=== PATIENT | female | born 1950 | race Caucasian/White ===

== ENCOUNTER 2024-01-27 13:44 | Emergency (ER) | payer MEDICARE, SELFPAY ==
[2024-01-27 13:45] VITALS: BP 147/71; PULSE 60; RESP 18; TEMP 37; O2SAT 100; BMI 25.0
[2024-01-27] MEDS: ONDANSETRON 4MG/2ML VIAL 4 MG IV ×2 (14:13→18:31)
[2024-01-27] MEDS: LACTATED RINGERS 1000ML 1,000 ML 999 ML IV (14:13)
[2024-01-27 14:23] LABS: Chloride 103 mmol/L (98-107); Sodium 137 mmol/L (136-145)
[2024-01-27 14:24] LABS: Potassium 3.6 mmoL/L (3.5-5.1)
--- NOTE | 2024-01-27 14:24 | HMH.EDGENADL ---
Discharge Plan Disposition Patient Disposition: Home, Self-Care Prescriptions Prescriptions: New metronidazole 500 mg tablet 500 mg PO Q8H 10 Days Qty: 30 0RF ondansetron 4 mg tablet,disintegrating 4 mg PO Q6H PRN (Reason: nausea and vomiting) Qty: 10 0RF levofloxacin 750 mg tablet 750 mg PO DAILY 10 Days Qty: 10 0RF Referrals Follow up/Referrals: Celina Richmond APRN [Primary Care Provider] - See instructions Activity Restrictions/Add. Instructions Additional Instructions/Restrictions: Today you are diagnosed with diverticulitis and urinary tract infection 3 times daily for 10 days, levofloxacin once daily for 10 days. Only take Zofran every 6 hours as needed for nausea and vomiting. Call your family doctor to establish care for this visit to the emergency department and schedule follow-up within 48 hours to ensure improvement. If you have any worsening of your condition or any other concerning signs or symptoms, return to the emergency department or your primary care doctor for further evaluation. Clinical Impressions Clinical Impression: Nausea vomiting and diarrhea, General weakness, Acute UTI, Elevated lipase, Diverticulitis Instructions Patient Instructions: DI for Diarrhea and Traveler's Diarrhea -- Adult, DI for Diarrhea and Traveler's Diarrhea -- Child, DI for Nausea -- Adult, DI for Nausea -- Child Discharge ED Provider: Renetta Aguirre General Adult HPI <Renetta Aguirre DO - Last Filed: 01/27/24 16:23> General Chief complaint: Nausea/Vomiting/Diarrhea Stated complaint: low heart rate, sleeping, vomitting Time Seen by Provider: 01/27/24 13:54 Mode of Arrival: Wheelchair Source of Information: Patient Limitations: No Limitations Description of Symptoms (Recalled from ER Triage Doc. by RN): pt presents to ED c/o n/v/d x 3 days. per report daughter in law states pt is weak. daughter in law states pt has a hx of dementia. pt A&O x 4 at this time. per report pt's granddaughter has recently been sick with vomiting. History of Present Illness HPI narrative: This patient is a 74-year-old female presenting to the emergency department for evaluation with concern for nausea, vomiting, and diarrhea for the last 3 days. Family member at home is also sick. According to family and the patient, the patient has had continued nausea and poor oral intake despite the vomiting resolving, and she is still having loose watery stools. No melena or hematochezia. Patient feels very weak and tired overall. No other concerns noted at this time such as abdominal pain pain, headache, visual disturbance, neurologic deficits, or other issues. Related Data Previous Rx's Medication Instructions Recorded levofloxacin 750 mg tablet 750 mg PO DAILY 10 days #10 tabs 01/27/24 metronidazole 500 mg tablet 500 mg PO Q8H 10 days #30 tabs 01/27/24 ondansetron 4 mg disintegrating 4 mg PO Q6H PRN nausea and 01/27/24 tablet vomiting #10 tabs Allergies Allergy/AdvReac Type Severity Reaction Status Date / Time Penicillins Allergy Verified 01/27/24 13:56 Sulfa (Sulfonamide Allergy Verified 01/27/24 13:56 Antibiotics) [facility] <Renetta Aguirre DO - Last Filed: 01/27/24 16:23> [facility] Disclaimer: The information contained in this section may have been updated after the patient was seen, as this information can be updated by other users. Social History (Updated 01/27/24 @ 16:21 by Renetta Aguirre DO) Smoking Status: Never smoker alcohol intake: never current occupational status: retired Travel in the last 8 weeks: None <Renetta Aguirre DO - Last Filed: 01/27/24 16:23> ROS Obtained: Yes All systems reviewed & no additional complaints except as documented Physical Exam <Renetta Aguirre DO - Last Filed: 01/27/24 16:23> General General appearance: alert and in no apparent distress Comment: Tired appearing Head Head exam: atraumatic and normocephalic Eye Eye exam: Present normal appearance, PERRL and EOMI ENT ENT exam: Present normal exam, normal oropharynx, mucous membranes moist and normal external ear exam Neck Neck exam: Present normal inspection, full ROM and trachea midline; Absent tenderness Chest Chest inspection: Present normal inspection and symmetric chest wall rise; Absent tenderness Respiratory Respiratory exam: Present normal lung sounds bilaterally; Absent respiratory distress, wheezes, stridor or accessory muscle use Cardiovascular Cardiovascular exam: Present regular rate and normal rhythm Abdominal Exam Abdominal exam: Present soft; Absent distention, tenderness or guarding Extremities Exam Extremities exam: Present normal inspection, full ROM and normal capillary refill; Absent tenderness or edema Back Exam Back exam: Present normal inspection and full ROM; Absent tenderness Neurological Exam Neurological exam: Present alert, oriented X3 and CN II-XII intact; Absent motor sensory deficit Psychiatric Psychiatric exam: Present normal affect and normal mood Skin Skin exam: Present warm and dry Medical Decision Making <Renetta Aguirre, DO - Last Filed: 01/27/24 16:23> Medical Records Medical records reviewed: Yes I reviewed the patient's medical records. [place] Inquiry Pt receiving controlled substance: No Vital Signs: 01/27/24 13:45 01/27/24 14:30 01/27/24 16:44 Temperature 98.6 F Temperature Source Oral Pulse Rate 51 L 62 Pulse Rate [Right Radial] 60 Respiratory Rate 18 Blood Pressure 125/62 120/62 Blood Pressure [Right Arm] 147/71 H Blood Pressure Mean [Right Arm] 96 Blood Pressure Source [Right Arm] Automatic Cuff Blood Pressure Position [Right Arm] Sitting 02 Sat by Pulse Oximetry 100 98 94 L Oxygen Delivery Method Room Air Room Air Room Air Lab Data Lab results reviewed: Yes I reviewed the patient's lab results. Lab Results 01/27/24 14:00: WBC 6.6, RBC 4.43, Hgb 14.0, Hct 41.7, MCV 94.1, MCH 31.5 H, MCHC 33.5, RDW 13.8, Plt Count 201, MPV 8.0, Neut % (Auto) 60.9, Lymph % (Auto) 29.9, [place] % (Auto) 7.8, Eos % (Auto) 0.9, Baso % (Auto) 0.4, Neut # (Auto) 4.0, Lymph # (Auto) 2.0, [place] # (Auto) 0.5, Eos # (Auto) 0.1, Baso # (Auto) 0.0, Sodium 137, Potassium 3.6, Chloride 103, Carbon Dioxide 27, Anion Gap 10.6, BUN 19 H, Creatinine 1.10 H, Estimated Creat Clear 49, Estimated GFR 49 L, Est GFR ( Amer) 59, Glucose 94, Calcium 8.9, Magnesium 1.9, Total Bilirubin 0.6, AST 32, ALT 21, Alkaline Phosphatase 49, Total Protein 6.6, Albumin 3.9, Globulin 2.7, Albumin/Globulin Ratio 1.4, Lipase 877 H 01/27/24 14:15: Urine Color Yellow, Urine Appearance Sl cloudy, Urine pH 6.0, Ur Specific [place] 1.015, Urine Protein Negative, Urine Glucose (UA) Negative, Urine Ketones Negative, Urine Blood 3+, Urine Nitrate Negative, Urine Bilirubin Negative, Urine Urobilinogen 0.2, Ur Leukocyte Esterase 2+ A, Urine RBC 5-10, Urine WBC 10-20, Ur Squamous Epith Cells 3-5, Urine Bacteria Trace 01/27/24 14:00 01/27/24 14:00 Orders (Tests/Meds): ED MEDICATIONS Discontinued Medications Generic Name Dose Route Start Last Admin Trade Name Freq PRN Reason Stop Dose Admin Lactated Ringer's 1,000 mls @ 999 mls/hr 01/27/24 13:58 01/27/24 14:13 Lactated Ringer's 1000 Ml Bag IV 01/27/24 14:58 999 mls/hr .Q1H1M ONE Administration Ceftriaxone Sodium 1 gm/ 50 mls @ 100 mls/hr 01/27/24 15:55 01/27/24 16:06 Sodium Chloride IV 01/27/24 16:24 100 mls/hr ONCE ONE Administration Iopamidol 75 ml 01/27/24 16:08 01/27/24 16:09 Iopamidol-370 (76%);100ml Bottle IV 01/27/24 16:09 75 ml ONCE ONE Administration Ondansetron HCl 4 mg 01/27/24 13:58 01/27/24 14:13 Ondansetron 4mg/2ml Vial IV 01/27/24 13:59 4 mg ONCE ONE Administration Sodium Chloride 10 ml 01/27/24 16:08 01/27/24 16:09 Sodium Chloride 0.9% 10ml Syr (Rad Only) IV 01/27/24 16:09 10 ml ONCE ONE Administration ORDERS Category Date Time Status CT abdomen pelvis w con Stat Cat Scan 01/27/24 14:42 Completed US RUQ [US abdomen limited] Stat Exams 01/27/24 14:42 Completed Complete Blood Count Auto Diff Stat Lab 01/27/24 14:00 Completed Comprehensive Metabolic Panel Stat Lab 01/27/24 14:00 Completed Diarrhea 23 Panel, PCR Stat Lab 01/27/24 13:57 Ordered Lipase Stat Lab 01/27/24 14:00 Completed Magnesium Stat Lab 01/27/24 14:00 Completed Urinalysis and Microscopic Stat Lab 01/27/24 14:15 Completed Urine Culture Stat Micro 01/27/24 14:15 Received ECG Data Tracing #1: I reviewed this ECG and interpreted as documented below: Sinus bradycardia with a ventricular rate of [address] changes concerning for ischemia. Normal axis and intervals. ECG initial impression date: 01/27/24 ECG initial impression time: 14:39 Medical Decision Narrative: In summary, this patient is a 74-year-old female presenting to the Emergency Department for evaluation of nausea, vomiting, diarrhea, and general weakness. Differential diagnoses considered include but are not limited to viral gastroenteritis, bacterial gastroenteritis, dehydration, hypokalemia, hypomagnesemia, urinary tract infection. Ruling out the most morbid conditions drove assessment. On exam, the patient is tired appearing but is neurologically intact with benign abdominal exam. Workup included CBC, CMP, lipase, urinalysis, stool panel, and EKG. She is given a bolus of IV fluids as well as IV Zofran. Labs demonstrate an elevated lipase of greater than 800. She also has concern for urinary tract infection. Labs are otherwise reassuring with no elevation in bilirubin, normal liver enzymes, and no other acute concerns. On reassessment, the patient is feeling little bit better and is resting calmly with benign abdominal exam. Given elevated lipase of unknown etiology, decision was made to order CT abdomen pelvis with IV contrast as well as right upper quadrant ultrasound, as the patient does still have her gallbladder. Patient close on exam, provider, Dr. Zhao, pending imaging. <Sanford Zhao MD - Last Filed: 01/27/24 18:22> Vital Signs: 01/27/24 13:45 01/27/24 14:30 01/27/24 16:44 Temperature 98.6 F Temperature Source Oral Pulse Rate 51 L 62 Pulse Rate [Right Radial] 60 Respiratory Rate 18 Blood Pressure 125/62 120/62 Blood Pressure [Right Arm] 147/71 H Blood Pressure Mean [Right Arm] 96 Blood Pressure Source [Right Arm] Automatic Cuff Blood Pressure Position [Right Arm] Sitting 02 Sat by Pulse Oximetry 100 98 94 L Oxygen Delivery Method Room Air Room Air Room Air Lab Data Lab Results 01/27/24 14:00: WBC 6.6, RBC 4.43, Hgb 14.0, Hct 41.7, MCV 94.1, MCH 31.5 H, MCHC 33.5, RDW 13.8, Plt Count 201, MPV 8.0, Neut % (Auto) 60.9, Lymph % (Auto) 29.9, [place] % (Auto) 7.8, Eos % (Auto) 0.9, Baso % (Auto) 0.4, Neut # (Auto) 4.0, Lymph # (Auto) 2.0, [place] # (Auto) 0.5, Eos # (Auto) 0.1, Baso # (Auto) 0.0, Sodium 137, Potassium 3.6, Chloride 103, Carbon Dioxide 27, Anion Gap 10.6, BUN 19 H, Creatinine 1.10 H, Estimated Creat Clear 49, Estimated GFR 49 L, Est GFR ( Amer) 59, Glucose 94, Calcium 8.9, Magnesium 1.9, Total Bilirubin 0.6, AST 32, ALT 21, Alkaline Phosphatase 49, Total Protein 6.6, Albumin 3.9, Globulin 2.7, Albumin/Globulin Ratio 1.4, Lipase 877 H 01/27/24 14:15: Urine Color Yellow, Urine Appearance Sl cloudy, Urine pH 6.0, Ur Specific [place] 1.015, Urine Protein Negative, Urine Glucose (UA) Negative, Urine Ketones Negative, Urine Blood 3+, Urine Nitrate Negative, Urine Bilirubin Negative, Urine Urobilinogen 0.2, Ur Leukocyte Esterase 2+ A, Urine RBC 5-10, Urine WBC 10-20, Ur Squamous Epith Cells 3-5, Urine Bacteria Trace Orders (Tests/Meds): ED MEDICATIONS Discontinued Medications Generic Name Dose Route Start Last Admin Trade Name Darrel PRN Reason Stop Dose Admin Lactated Ringer's 1,000 mls @ 999 mls/hr 01/27/24 13:58 01/27/24 14:13 Lactated Ringer's 1000 Ml Bag IV 01/27/24 14:58 999 mls/hr .Q1H1M ONE Administration Ceftriaxone Sodium 1 gm/ 50 mls @ 100 mls/hr 01/27/24 15:55 01/27/24 16:06 Sodium Chloride IV 01/27/24 16:24 100 mls/hr ONCE ONE Administration Iopamidol 75 ml 01/27/24 16:08 01/27/24 16:09 Iopamidol-370 (76%);100ml Bottle IV 01/27/24 16:09 75 ml ONCE ONE Administration Ondansetron HCl 4 mg 01/27/24 13:58 01/27/24 14:13 Ondansetron 4mg/2ml Vial IV 01/27/24 13:59 4 mg ONCE ONE Administration Sodium Chloride 10 ml 01/27/24 16:08 01/27/24 16:09 Sodium Chloride 0.9% 10ml Syr (Rad Only) IV 01/27/24 16:09 10 ml ONCE ONE Administration ORDERS Category Date Time Status CT abdomen pelvis w con Stat Cat Scan 01/27/24 14:42 Completed US RUQ [US abdomen limited] Stat Exams 01/27/24 14:42 Completed Complete Blood Count Auto Diff Stat Lab 01/27/24 14:00 Completed Comprehensive Metabolic Panel Stat Lab 01/27/24 14:00 Completed Diarrhea 23 Panel, PCR Stat Lab 01/27/24 13:57 Ordered Lipase Stat Lab 01/27/24 14:00 Completed Magnesium Stat Lab 01/27/24 14:00 Completed Urinalysis and Microscopic Stat Lab 01/27/24 14:15 Completed Urine Culture Stat Micro 01/27/24 14:15 Received Medical Decision Narrative: In summary, this patient is a 74-year-old female presenting to the Emergency Department for evaluation of nausea, vomiting, diarrhea, and general weakness. Differential diagnoses considered include but are not limited to viral gastroenteritis, bacterial gastroenteritis, dehydration, hypokalemia, hypomagnesemia, urinary tract infection. Ruling out the most morbid conditions drove assessment. On exam, the patient is tired appearing but is neurologically intact with benign abdominal exam. Workup included CBC, CMP, lipase, urinalysis, stool panel, and EKG. She is given a bolus of IV fluids as well as IV Zofran. Labs demonstrate an elevated lipase of greater than 800. She also has concern for urinary tract infection. Labs are otherwise reassuring with no elevation in bilirubin, normal liver enzymes, and no other acute concerns. On reassessment, the patient is feeling little bit better and is resting calmly with benign abdominal exam. Given elevated lipase of unknown etiology, decision was made to order CT abdomen pelvis with IV contrast as well as right upper quadrant ultrasound, as the patient does still have her gallbladder. Patient close on exam, provider, Dr. Zhao, pending imaging. Pavel: I assumed primary responsibility for this patient after signout from previous physician. On my evaluation, patient in no acute distress. Intermittently nauseous, given IV Zofran. Given, given Flagyl and levofloxacin. Independent rotation of labs demonstrate UA. Nonactionable CBC or chemistry. CT of the abdomen pelvis without findings for pancreatitis, patient does have concern for diverticulitis, scant inflammatory fluid in the pelvis and cystitis. I feel this is employment program representative of patient's symptoms. Because patient at baseline without signs or symptoms of clinical decompensation, deemed appropriate for discharge. Results were relayed to patient who voiced understanding and were agreeable to outpatient management and follow up. I discussed my clinical impression with patient and answered all questions. At this time, the evidence for any other entities in the differential is insufficient to warrant any further testing or ED observation. This was explained as well. Advisory was given that persistent or worsening symptoms require further evaluation. I confirmed the understanding of this discussion. Critical Care <Renetta Aguirre, DO - Last Filed: 01/27/24 16:23> Critical Care Time Critical Care Time: No
[2024-01-27 14:26] LABS: Alanine Aminotransferase 21 U/L (12-78); Albumin Level 3.9 g/dl (3.5-5.0); Albumin/Globulin Ratio 1.4 (1.1-1.8); Alkaline Phosphatase 49 U/L (38-126); Anion Gap 10.6 mEq/L (5-15); Aspartate Amino Transferase 32 U/L (14-36); Bilirubin,Total 0.6 mg/dl (0.2-1.3); Blood Urea Nitrogen 19 mg/dl (7-17); Carbon Dioxide 27 mmol/L (22.0-30.0); Creatinine Clearance Estimated 49 mL/min (50-200); Estimated Glomerular Filt Rate 49 ml/min (>60); GFR (African American) 59 ML/MIN (>60); Globulin 2.7 g/dL (1.3-3.2); Magnesium 1.9 mg/dl (1.6-2.3); Total Protein,Serum 6.6 g/dl (6.3-8.2)
[2024-01-27 14:27] LABS: Calcium 8.9 mg/dl (8.4-10.2); Glucose 94 mg/dl (74-100)
[2024-01-27 14:30] VITALS: BP 125/62; PULSE 51; O2SAT 98
[2024-01-27 14:32] LABS: Basophils % 0.4 % (0.1-2.0); Eosinophils # 0.1 K/mm3 (0.0-0.4); Eosinophils % 0.9 % (0.1-12.0); Hematocrit 41.7 % (37.0-47.0); Lymphocytes % 29.9 % (10-50); Mean Corpuscular HGB Conc 33.5 g/dL (31.8-35.4); Mean Corpuscular Hemoglobin 31.5 pg (27.0-31.2); Mean Corpuscular Volume 94.1 fl (81-99); Monocytes # 0.5 K/mm3 (0.1-1.0); Monocytes % 7.8 % (1.7-9.3); Neutrophils % 60.9 % (37.0-80.0); Platelet Count 201 K/mm3 (142-424); Red Blood Count 4.43 M/mm3 (4.20-5.40); Red Cell Distribution Width 13.8 % (11.5-17.5); White Blood Count 6.6 K/mm3 (4.8-10.8)
[2024-01-27 14:33] LABS: Lipase 877 U/L (23-300)
--- NOTE | 2024-01-27 14:33 | PC.NURSE ---
lipase [address] Aguirre.
--- NOTE | 2024-01-27 14:39 | ECG_ITS ---
APPROVED REPORT Exam: Resting ECG HR:56 bpm ECG Measurements Heart Rate 56 AXES IA 157 P 58 QRSd 90 QRS 54 QT 429 T 44 QTc 422 Conclusion SINUS BRADYCARDIA BORDERLINE ECG Electronically signed by : RENÉ BOSWELL, 01/27/2024 16:25:27
--- NOTE | 2024-01-27 14:42 | US_ITS ---
FINAL REPORT CLINICAL HISTORY: new pancreatitis FINDINGS: RIGHT UPPER QUADRANT ULTRASOUND Sonographic images of the right upper quadrant were obtained. The pancreas is partially obscured.The liver has an unremarkable appearance. There is a questionable small stone in the gallbladder without well-defined shadowing. The common duct measures 6 mm, normal for age. Right renal cyst measures 1.9 cm. IMPRESSION: Right renal cysts. Questionable gallstone. Follow-up ultrasound may be helpful. Reviewed, Interpreted and Dictated by Puma Silverio III, MD Transcribed by Veronica Velazquez Authenticated and [facility]
--- NOTE | 2024-01-27 14:42 | CT_ITS ---
FINAL REPORT CLINICAL HISTORY: new pancreatitis, no history COMPARISON: None FINDINGS: CT OF THE ABDOMEN AND PELVIS WITH CONTRAST Axial CT images of the abdomen and pelvis were obtained after the administration of IV contrast. Coronal and sagittal reformatted images were also obtained and reviewed. This study was performed with techniques to keep radiation doses as low as reasonably achievable (ALARA). Individualized dose reduction techniques using automated exposure control or adjustment of mA and/or kV according to the patient's size were employed. Abdomen: The lung bases are clear. The heart is normal in size. The liver has an unremarkable appearance, without evidence of mass or biliary ductal dilatation. No gallstones are identified. The spleen is unremarkable. No adrenal mass is present. The pancreas has an unremarkable appearance. There is a 2.2 cm posterior right renal cyst present. No evidence of hydronephrosis or mass is otherwise seen in either kidney. The aorta is normal in caliber. Moderate vascular calcifications are present. There is no free fluid or adenopathy. No mass or abnormal fluid collection is seen. Pelvis: The appendix is not well-visualized. Multiple colonic diverticula are present. There is stranding adjacent to the distal sigmoid colon, worrisome for acute diverticulitis. A small amount of free fluid is in the pelvis, likely reactive. The uterus has been surgically resected. The urinary bladder is unremarkable. There is no evidence of mass or adenopathy. There is no evidence of bowel obstruction. IMPRESSION: Stranding adjacent to the distal sigmoid colon, worrisome for acute diverticulitis. Numerous colonic diverticula are present throughout the colon. Small amount of pelvic free fluid, likely reactive. No gallstones are identified. The pancreas appears unremarkable. Reviewed, Interpreted and Dictated by Puma Silverio III, MD Transcribed by Lora Echavarria Authenticated and [facility]
[2024-01-27 14:45] LABS: Microscopic, Urine URINE MICROSCOPIC (MICROSCOPIC)
[2024-01-27 14:46] LABS: Appearance,Urine SL CLOUDY (Clear); Bilirubin,Urine Negative (Negative); Blood, Urine 3+ (Negative); Color,Urine YELLOW (Yellow); Glucose,Urine (UA) Negative (Negative); Ketones,Urine Negative (Negative); Leukocyte Esterase,Urine 2+ (Negative); Nitrate,Urine Negative (Negative); Protein,Urine Negative (Negative); Specific Gravity, Urine 1.015 (1.005-1.030); Urobilinogen,Urine 0.2 EU/dl (0.2)
[2024-01-27 14:48] LABS: Bacteria,Urine Trace /lpf
[2024-01-27] MEDS: CEFTRIAXONE SODIUM 1 GM in 0.9 % SODIUM CHLORIDE 50 ML IV (16:06)
[2024-01-27] MEDS: IOPAMIDOL-370 (76%);100ML BOTTLE 75 ML IV (16:09)
[2024-01-27] MEDS: SODIUM CHLORIDE 0.9% 10ML SYR (RAD ONLY) 10 ML IV (16:09)
[2024-01-27 16:44] VITALS: BP 120/62; PULSE 62; O2SAT 94
--- NOTE | 2024-01-27 18:05 | PC.NURSE ---
NOTIFIED DR. MANN THAT PATIENT IS REQUESTING SOMETHING FOR NAUSEA, INFORMED HIM SHE HAD ZOFRAN AT 1415. PATIENT AND FAMILY IS ALSO REQUESTING UPDATE ON LAB RESULTS AND CT RESULTS. DR. MANN AT BEDSIDE TO UPDATE PATIENT.
--- NOTE | 2024-01-27 18:07 | PC.NURSE ---
Dr. Zhao at BS to update pt and family
[2024-01-27] MEDS: levoFLOXacin 750 MG TABLET PO (18:31)
[2024-01-27] MEDS: metroNIDAZOLE 500 MG TABLET PO (18:31)
[2024-01-27 18:38] VITALS: BP 132/84; PULSE 64; RESP 20; TEMP 37; O2SAT 99
== END 2024-01-27 18:38 | disposition home or self-care (01) ==
PROVIDERS: Emergency Provider Emergency Medicine; PCP Nurse Practitioner Family
DX: N39.0 Urinary tract infection, site not specified (principal); B96.89 Other specified bacterial agents as the cause of diseases classified elsewhere; R00.1 Bradycardia, unspecified; K57.32 Diverticulitis of large intestine without perforation or abscess without bleeding; R11.2 Nausea with vomiting, unspecified; R19.7 Diarrhea, unspecified; R53.1 Weakness
CPT/HCPCS: 74177; 76705; 80053; 81001; 83690; 83735; 85025; 87086; 93005; 96361; 96365; 96375; 96376; 99285; J0696; J2405; Q9967

== ENCOUNTER 2024-01-28 13:21 | Observation (INO) | payer MEDICARE, SELFPAY ==
[2024-01-28 13:23] VITALS: BP 146/81; PULSE 103; RESP 20; TEMP 37.5; O2SAT 97; BMI 27.1
--- NOTE | 2024-01-28 13:51 | ED_ITS ---
Discharge Plan Disposition Chief Complaint: Altered Mental Status Prescriptions Prescriptions: No Action metronidazole 500 mg tablet 500 mg PO Q8H 10 Days Qty: 30 0RF ondansetron 4 mg tablet,disintegrating 4 mg PO Q6H PRN (Reason: nausea and vomiting) Qty: 10 0RF levofloxacin 750 mg tablet 750 mg PO DAILY 10 Days Qty: 10 0RF Discharge ED Provider: [facility] General Chief complaint: Altered Mental Status Stated complaint: possible UTI Time Seen by Provider: 01/28/24 13:25 Mode of Arrival: Ambulatory Source of Information: Patient and Relative Limitations: No Limitations Description of Symptoms (Recalled from ER Triage Doc. by RN): pt was seen here yesterday and dx with a uti and diverticulitis given first dose levaquin and flagyl here in the ER then went home. per family pt mental state has declined and she is in a more delirium state. same ER md that saw her yesterday saw her today History of Present Illness HPI narrative: 74-year-old female history of dementia and UTI induced delirium, diagnosis of diverticulitis (uncomplicated) and UTI yesterday 01/26 by myself presenting with delirium. Family states that she has been agitated, screaming, cursing, uncooperative since going home yesterday, 01/26 into the evening. Becoming acutely aggressive. Has been tolerating very little p.o. intake. Family brought her in for further evaluation. Patient not oriented to place or time. States that she packed up the car telling them they are moving to [place]. Family states that she has been getting her Levaquin that was sent home with her and has not had difficulty tolerating that. Please note that above description of symptoms, in this electronic medical record under categorization of recalled from ER triage doctor by RN are reflective of an initial nursing assessment, however, is not reflective of my full history and physical exam that was personally taken and clarified. Consequentially, this preceding description of symptoms, which may include the patient's categorized chief complaint in the EMR, do not reflect my personal clinical impression, and the ultimate description of history of present illness and patient stated complaints should be deferred to this section of the note. Unless stated otherwise or congruent with this section of the note, additional signs, symptoms, or incongruence should be interpreted as inaccurate with my clinical impression. Related Data Previous Rx's Medication Instructions Recorded levofloxacin 750 mg tablet 750 mg PO DAILY 10 days #10 tabs 01/27/24 metronidazole 500 mg tablet 500 mg PO Q8H 10 days #30 tabs 01/27/24 ondansetron 4 mg disintegrating 4 mg PO Q6H PRN nausea and 01/27/24 tablet vomiting #10 tabs Allergies Allergy/AdvReac Type Severity Reaction Status Date / Time Penicillins Allergy Verified 01/27/24 13:56 Sulfa (Sulfonamide Allergy Verified 01/27/24 13:56 Antibiotics) [facility] Disclaimer: The information contained in this section may have been updated after the patient was seen, as this information can be updated by other users. Social History (Updated 01/27/24 @ 16:21 by Renetta Aguirre DO) Smoking Status: Never smoker alcohol intake: never current occupational status: retired Travel in the last 8 weeks: None ROS Obtained: Yes All systems reviewed & no additional complaints except as documented Physical Exam General General appearance: alert and in no apparent distress Head Head exam: atraumatic and normocephalic Eye Eye exam: Present normal appearance, PERRL and EOMI ENT ENT exam: Present mucous membranes moist Neck Neck exam: Present normal inspection, full ROM and trachea midline Respiratory Respiratory exam: Absent respiratory distress, wheezes, stridor, accessory muscle use or prolonged expiratory phase Cardiovascular Cardiovascular exam: Present normal rhythm Abdominal Exam Abdominal exam: Present soft and tenderness; Absent distention, guarding, rebound or rigidity Abdominal tenderness: Present suprapubic Extremities Exam Extremities exam: Absent edema Neurological Exam Neurological exam: Present alert, CN II-XII intact and normal gait; Absent oriented X3 or motor sensory deficit Skin Skin exam: Present warm and dry; Absent diaphoresis or erythema Medical Decision Making Medical Records Medical records reviewed: Yes I reviewed the patient's medical records. [place] Inquiry Pt receiving controlled substance: No [place] was queried for this patient: No Vital Signs: 01/28/24 13:23 01/28/24 14:00 Temperature 99.5 F Temperature Source Oral Pulse Rate 92 H Pulse Rate [Right Radial] 103 H Respiratory Rate 20 Blood Pressure 141/88 H Blood Pressure [Right Arm] 146/81 H Blood Pressure Mean [Right Arm] 102 02 Sat by Pulse Oximetry 97 90 L Oxygen Delivery Method Room Air Room Air Lab Data Lab Results 01/28/24 13:57: WBC 5.2, RBC 4.57, Hgb 14.1, Hct 43.5, MCV 95.2, MCH 30.8, MCHC 32.4, RDW 13.6, Plt Count 204, MPV 7.8, Neut % (Auto) 62.6, Lymph % (Auto) 27.0, [place] % (Auto) 9.0, Eos % (Auto) 0.5, Baso % (Auto) 0.9, Neut # (Auto) 3.3, Lymph # (Auto) 1.4, [place] # (Auto) 0.5, Eos # (Auto) 0.0, Baso # (Auto) 0.1, Sodium 138, Potassium 3.6, Chloride 105, Carbon Dioxide 25, Anion Gap 11.6, BUN 11 D, Creatinine 1.20 H, Estimated Creat Clear 47, Estimated GFR 44 L, Est GFR ( Amer) 53 L, Glucose 103 H, Lactate 0.7, Calcium 8.9, Total Bilirubin 0.4, AST 31, ALT 21, Alkaline Phosphatase 47, Total Protein 6.9, Albumin 4.0, Globulin 2.9, Albumin/Globulin Ratio 1.4 01/28/24 13:57 01/28/24 13:57 Orders (Tests/Meds): ED MEDICATIONS Generic Name Dose Route Start Last Admin Trade Name Freq PRN Reason Stop Dose Admin Sodium Chloride 1,000 mls @ 999 mls/hr 01/28/24 13:52 01/28/24 13:57 Sod Chlor 0.9% 1000ml Bag IV 01/28/24 14:52 999 mls/hr .Q1H1M ONE Administration Discontinued Medications Generic Name Dose Route Start Last Admin Trade Name Freq PRN Reason Stop Dose Admin Ceftriaxone Sodium 1 gm/ 50 mls @ 100 mls/hr 01/28/24 13:52 01/28/24 13:57 Sodium Chloride IV 01/28/24 14:21 100 mls/hr ONCE ONE Administration ORDERS Category Date Time Status CBC w/Auto Diff [Complete Blood Count Auto Diff] Stat Lab 01/28/24 13:57 Completed CMP [Comprehensive Metabolic Panel] Stat Lab 01/28/24 13:57 Completed Lactic Acid Stat Lab 01/28/24 13:57 Completed Blood Culture Stat Micro 01/28/24 14:06 Received Medical Decision Narrative: 74-year-old female history of dementia and UTI induced delirium, diagnosis of diverticulitis (uncomplicated) and UTI yesterday 01/26 by myself presenting with delirium. Family states that she has been agitated, screaming, cursing, uncooperative since going home yesterday, 01/26 into the evening. Becoming acutely aggressive. Has been tolerating very little p.o. intake. Family brought her in for further evaluation. Patient not oriented to place or time. States that she packed up the car telling them they are moving to [place]. Family states that she has been getting her Levaquin that was sent home with her and has not had difficulty tolerating that. History was obtained via conversation with patient and family. On arrival, patient hemodynamically stable, alert, oriented to person and situation, not time or place appropriate, GCS 15, moving all extremities spontaneously, pupils equal and reactive to light. Full physical exam performed and significant for well-appearing woman in no acute distress. Abdomen is soft, but tender in suprapubic region. She states that she needs to urinate when pushed on suprapubic region. Denies overt or severe pain. Differential includes diverticulitis, UTI, infectious delirium, colitis, among others. Patient was given ceftriaxone 1 g, normal saline bolus for symptomatic management and correction of underlying abnormalities. Workup independently interpreted and significant for nonactionable hematologic workup, negative lactate. Mildly worsening ADE with creatinine 1.2. Independent rotation of imaging from yesterday demonstrated similar findings with cystitis and diverticulitis with no other complications. Given levofloxacin and Flagyl IV. Hospitalist was contacted and case was discussed at length given patient failing outpatient therapy, patient be admitted. Critical Care Critical Care Time Critical Care Time: No
[2024-01-28] MEDS: 0.9 % SODIUM CHLORIDE 1000ML 1,000 ML 999 ML IV (13:57)
[2024-01-28] MEDS: CEFTRIAXONE SODIUM 1 GM in 0.9 % SODIUM CHLORIDE 50 ML IV (13:57)
[2024-01-28 14:00] VITALS: BP 141/88; PULSE 92; O2SAT 90
[2024-01-28 14:06] LABS: Basophils # 0.1 K/mm3 (0-0.2); Basophils % 0.9 % (0.1-2.0); Eosinophils % 0.5 % (0.1-12.0); Hematocrit 43.5 % (37.0-47.0); Hemoglobin 14.1 g/dL (12.2-16.2); Lymphocytes # 1.4 K/mm3 (0.7-4.5); Mean Corpuscular HGB Conc 32.4 g/dL (31.8-35.4); Mean Corpuscular Hemoglobin 30.8 pg (27.0-31.2); Mean Corpuscular Volume 95.2 fl (81-99); Mean Platelet Volume 7.8 fl (7.4-10.4); Monocytes # 0.5 K/mm3 (0.1-1.0); Neutrophils # 3.3 K/mm3 (1.8-7.8); Neutrophils % 62.6 % (37.0-80.0); Platelet Count 204 K/mm3 (142-424); Red Blood Count 4.57 M/mm3 (4.20-5.40); Red Cell Distribution Width 13.6 % (11.5-17.5); White Blood Count 5.2 K/mm3 (4.8-10.8)
[2024-01-28 14:10] LABS: Chloride 105 mmol/L (98-107); Sodium 138 mmol/L (136-145)
[2024-01-28 14:11] LABS: Potassium 3.6 mmoL/L (3.5-5.1)
[2024-01-28 14:13] LABS: Alanine Aminotransferase 21 U/L (12-78); Alkaline Phosphatase 47 U/L (38-126); Aspartate Amino Transferase 31 U/L (14-36); Bilirubin,Total 0.4 mg/dl (0.2-1.3); Blood Urea Nitrogen 11 mg/dl (7-17); Creatinine Clearance Estimated 47 mL/min (50-200); Estimated Glomerular Filt Rate 44 ml/min (>60); GFR (African American) 53 ML/MIN (>60)
[2024-01-28 14:14] LABS: Albumin/Globulin Ratio 1.4 (1.1-1.8); Anion Gap 11.6 mEq/L (5-15); Calcium 8.9 mg/dl (8.4-10.2); Carbon Dioxide 25 mmol/L (22.0-30.0); Globulin 2.9 g/dL (1.3-3.2); Glucose 103 mg/dl (74-100); Total Protein,Serum 6.9 g/dl (6.3-8.2)
[2024-01-28 14:32] LABS: Lactic Acid 0.7 mmol/L (0.7-2.1)
--- NOTE | 2024-01-28 14:40 | PC.NURSE ---
HS called for admit
--- NOTE | 2024-01-28 14:48 | HMH.PHAINT1 ---
Pharmacy Intervention Comments: MEDICATION RECONCILIATION COMPLETED ON PATIENT USING EXTERNAL FILL HISTORY FROM PHARMACY. -TL DAVILA, JASSID
[2024-01-28 15:00] VITALS: BP 141/72; PULSE 83; RESP 17; TEMP 36.7; O2SAT 96; BMI 27.6
--- NOTE | 2024-01-28 15:00 | PC.NURSE ---
arrived by we/c from ED
[2024-01-28 15:02] VITALS: BP 156/93; PULSE 108; RESP 20; TEMP 37.5; O2SAT 96
[2024-01-28 16:00] VITALS: BP 138/70; PULSE 70; RESP 16; TEMP 36.6; O2SAT 94
[2024-01-28] MEDS: METRONIDAZ/SOD CHL 500 MG/100 ML PIGGYBACK 100 MG IV (16:20)
[2024-01-28] MEDS: 0.9 % SODIUM CHLORIDE 1000ML 1,000 ML 50 ML IV (16:20)
[2024-01-28] MEDS: LEVOFLOXACIN/D5W 750 MG/150 ML 750 MG/150 ML PIGGYBACK 100 MG IV (16:21)
[2024-01-28] MEDS: HEPARIN SODIUM 5,000 UNIT/ML VIAL 5000 UNIT SQ ×2 (16:21→23:09)
--- NOTE | 2024-01-28 17:53 | PC.WOUNDNOTE ---
tick attached to pts top left back. removed and cleaned as ordered from . head of tick was intact.
--- NOTE | 2024-01-28 18:23 | P.HP_ITS ---
History of Present Illness *Admission Date: 01/28/24 *Reason for visit:: AMS *History of present illness: Patient is a 74-year-old female with past medical history of dementia who presents to the hospital due to change in mental status patient has been aggressive at home per family, patient has not been in her usual state of mental health. No reports of fevers diarrhea constipation. On further evaluation patient was noted to have acute diverticulitis and urinary tract infection, admi tted for further evaluation. [facility] Disclaimer: The information contained in this section may have been updated after the patient was seen, as this information can be updated by other users. Medical History (Updated 01/28/24 @ 15:47 by Ilene Andersen RN) Fixation hardware in spine Fixation hardware in foot Hyperlipemia Hypertension Surgical History (Updated 01/28/24 @ 15:46 by Ilene Andersen RN) History of hysterectomy Social History (Updated 01/27/24 @ 16:21 by Renetta Aguirre DO) Smoking Status: Never smoker alcohol intake: never current occupational status: retired Travel in the last 8 weeks: None Review of Systems Review of Systems Review of systems:: pertinent systems reviewed and negative unless documented below Meds Home Medications and Allergies Home Medications Medication Instructions Recorded Confirmed Type levofloxacin 750 mg tablet 750 mg PO DAILY 10 days #10 tabs 01/27/24 01/28/24 Rx amlodipine 5 mg-benazepril 20 mg 1 cap PO DAILY 01/28/24 01/28/24 History capsule donepezil 10 mg tablet 10 mg PO HS 01/28/24 01/28/24 History escitalopram oxalate 10 mg tablet 10 mg PO DAILY 01/28/24 01/28/24 History memantine 14 mg capsule 14 mg PO DAILY 01/28/24 01/28/24 History sprinkle,extended release 24hr metronidazole 500 mg tablet 500 mg PO TID 01/28/24 01/28/24 History ondansetron 4 mg disintegrating 4 mg PO Q6HP PRN nausea and 01/28/24 01/28/24 History tablet vomiting pravastatin 40 mg tablet 40 mg PO DAILY 01/28/24 01/28/24 History New Prescriptions to Start Prescriptions: Allergies Allergy/AdvReac Type Severity Reaction Status Date / Time Latex, Natural Rubber Allergy Intermediate Rash Verified 01/28/24 15:14 Penicillins Allergy Verified 01/27/24 13:56 Sulfa (Sulfonamide Allergy Verified 01/27/24 13:56 Antibiotics) Exam Data for Last 24 hours Vital signs and Labs for Last 24 Hours: Temp Pulse Resp BP Pulse Ox O2 Del Method 98 F 70 16 138/70 94 L Room Air 01/28/24 16:00 01/28/24 16:00 01/28/24 16:00 01/28/24 16:00 01/28/24 16:00 01/28/24 18:16 Laboratory Results - last 24 hr 01/28/24 13:57: WBC 5.2, RBC 4.57, Hgb 14.1, Hct 43.5, MCV 95.2, MCH 30.8, MCHC 32.4, RDW 13.6, Plt Count 204, MPV 7.8, Neut % (Auto) 62.6, Lymph % (Auto) 27.0, [place] % (Auto) 9.0, Eos % (Auto) 0.5, Baso % (Auto) 0.9, Neut # (Auto) 3.3, Lymph # (Auto) 1.4, [place] # (Auto) 0.5, Eos # (Auto) 0.0, Baso # (Auto) 0.1, Sodium 138, Potassium 3.6, Chloride 105, Carbon Dioxide 25, Anion Gap 11.6, BUN 11 D, Creatinine 1.20 H, Estimated Creat Clear 47, Estimated GFR 44 L, Est GFR ( Amer) 53 L, Glucose 103 H, Lactate 0.7, Calcium 8.9, Total Bilirubin 0.4, AST 31, ALT 21, Alkaline Phosphatase 47, Total Protein 6.9, Albumin 4.0, Globulin 2.9, Albumin/Globulin Ratio 1.4 I & O for Last 24 hours: Intake & Output 01/25/24 01/26/24 01/27/24 01/28/24 23:59 23:59 23:59 23:59 Intake Total 480 / 480 Balance 480 / 480 Weight 68.209 kg Constitutional Constitutional: no acute distress *Routine HEENT Exam Head: Present normocephalic Eye: Present EOMI and PERRL ENT: Present mucous membranes moist *Routine Neck Exam Neck: Present supple; Absent lymphadenopathy *Routine Respiratory Exam Respiratory: Present CTA bilaterally *Routine Cardiovascular Exam Cardiovascular: Present RRR *Routine Abdominal Exam Abdominal: Present soft and normoactive bowel sounds; Absent tenderness *Routine Rectal Exam Rectal:: deferred *Routine Genitalia Exam Genitalia:: deferred *Routine Extremities Exam Extremities: Absent cyanosis, clubbing or edema *Routine Skin Exam Skin: Present warm; Absent rash *Routine Neurological Exam Neurological: Present alert and oriented X3 Assessment and Plan *Assessment and plan (1) Diverticulitis: Status: Acute Category: Medical Code(s): K57.92 - Diverticulitis of intestine, part unspecified, without perforation or abscess without bleeding (2) Acute UTI: Status: Acute Category: Medical Code(s): N39.0 - Urinary tract infection, site not specified (3) General weakness: Status: Acute Category: Medical Code(s): R53.1 - Weakness Plan Patient is a 74-year-old female with past medical history of dementia who presents to the hospital due to change in mental status patient has been aggressive at home per family, patient has not been in her usual state of mental health. No reports of fevers diarrhea constipation. On further evaluation patient was noted to have acute diverticulitis and urinary tract infection, admitted for further evaluation. Assessment and plan Acute diverticulitis Urinary tract infection Start IV levofloxacin, IV Flagyl IV fluids Check blood cultures, urine culture Start on daily liquid diet, advance as tolerated As needed Zofran Acute delirium likely secondary to UTI in the setting of dementia Monitor Avoid benzodiazepines Resume home donepezil, memantine DVT prophylaxis-heparin
[2024-01-28] MEDS: DONEPEZIL 10MG TAB 10 MG PO (19:02)
[2024-01-28 20:00] VITALS: BP 138/82; PULSE 69; RESP 16; TEMP 37.2; O2SAT 97
[2024-01-28] MEDS: QUETIAPINE 25MG TABLET 25 MG PO (21:07)
[2024-01-29] MEDS: METRONIDAZ/SOD CHL 500 MG/100 ML PIGGYBACK 100 MG IV ×2 (02:07→09:33)
[2024-01-29 04:00] VITALS: BP 128/74; PULSE 64; RESP 16; TEMP 36.7; O2SAT 96; BMI 27.6
--- NOTE | 2024-01-29 05:33 | PC.NURSE ---
pt. 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
[2024-01-29 06:08] LABS: Basophils # 0.1 K/mm3 (0-0.2); Eosinophils # 0.2 K/mm3 (0.0-0.4); Eosinophils % 3.1 % (0.1-12.0); Hematocrit 40.1 % (37.0-47.0); Lymphocytes # 1.9 K/mm3 (0.7-4.5); Lymphocytes % 41.4 % (10-50); Mean Corpuscular HGB Conc 31.4 g/dL (31.8-35.4); Mean Corpuscular Hemoglobin 30.3 pg (27.0-31.2); Mean Corpuscular Volume 96.6 fl (81-99); Mean Platelet Volume 8.3 fl (7.4-10.4); Monocytes # 0.5 K/mm3 (0.1-1.0); Monocytes % 10.9 % (1.7-9.3); Neutrophils % 43.6 % (37.0-80.0); Platelet Count 198 K/mm3 (142-424); Red Blood Count 4.15 M/mm3 (4.20-5.40); Red Cell Distribution Width 13.6 % (11.5-17.5); White Blood Count 4.7 K/mm3 (4.8-10.8)
[2024-01-29 06:13] LABS: Anion Gap 13.2 mEq/L (5-15); Blood Urea Nitrogen 10 mg/dl (7-17); Calcium 8.1 mg/dl (8.4-10.2); Carbon Dioxide 25 mmol/L (22.0-30.0); Chloride 105 mmol/L (98-107); Creatinine Clearance Estimated 54 mL/min (50-200); Estimated Glomerular Filt Rate 54 ml/min (>60); GFR (African American) 66 ML/MIN (>60); Glucose 87 mg/dl (74-100); Potassium 3.2 mmoL/L (3.5-5.1); Sodium 140 mmol/L (136-145)
[2024-01-29 06:18] LABS: Hemoglobin 12.6 g/dL (12.2-16.2)
[2024-01-29 08:00] VITALS: BP 131/70; PULSE 60; RESP 16; TEMP 36.4; O2SAT 96
[2024-01-29] MEDS: BENAZEPRIL PO (09:31)
[2024-01-29] MEDS: AMLODIPINE PO (09:31)
[2024-01-29] MEDS: ESCITALOPRAM 10 MG 1 EACH PO (09:32)
[2024-01-29] MEDS: PRAVASTATIN 40 MG PO (09:32)
[2024-01-29] MEDS: MEMANTINE 10MG TABLET 5 MG PO (09:32)
[2024-01-29] MEDS: HEPARIN SODIUM 5,000 UNIT/ML VIAL 5000 UNIT SQ (09:33)
--- NOTE | 2024-01-29 12:50 | P.DS_ITS ---
General Admission date:: 01/28/24 Discharge date: 01/29/24 HPI HPI HPI: Patient is a 74-year-old female with past medical history of dementia who presents to the hospital due to change in mental status patient has been aggressive at home per family, patient has not been in her usual state of mental health. No reports of fevers diarrhea constipation. On further evaluation patient was noted to have acute diverticulitis and urinary tract infection, admitted for further evaluation. Hospital Course Hospital Course Hospital Course: Patient is a 74-year-old female with past medical history of dementia who presents to the hospital due to change in mental status patient has been aggressive at home per family, patient has not been in her usual state of mental health. No reports of fevers diarrhea constipation. On further evaluation patient was noted to have acute diverticulitis and urinary tract infection, admitted for further evaluation. Patient confusion resolved after seroquel, patient will be continued on levofloxacin and flagyl for acute diverticulitis and UTI Total time spent 38 mints, patient is discharged in stable condition and verbalized and agreed with the discharge plan Exam Data for Last 24 hours Vital signs and Labs for Last 24 Hours: Temp Pulse Resp BP Pulse Ox O2 Del Method 97.6 F 60 16 131/70 96 Room Air 01/29/24 08:00 01/29/24 08:00 01/29/24 08:00 01/29/24 08:00 01/29/24 08:00 01/29/24 11:00 Laboratory Results - last 24 hr 01/28/24 13:57: WBC 5.2, RBC 4.57, Hgb 14.1, Hct 43.5, MCV 95.2, MCH 30.8, MCHC 32.4, RDW 13.6, Plt Count 204, MPV 7.8, Neut % (Auto) 62.6, Lymph % (Auto) 27.0, [place] % (Auto) 9.0, Eos % (Auto) 0.5, Baso % (Auto) 0.9, Neut # (Auto) 3.3, Lymph # (Auto) 1.4, [place] # (Auto) 0.5, Eos # (Auto) 0.0, Baso # (Auto) 0.1, Sodium 138, Potassium 3.6, Chloride 105, Carbon Dioxide 25, Anion Gap 11.6, BUN 11 D, Creatinine 1.20 H, Estimated Creat Clear 47, Estimated GFR 44 L, Est GFR ( Amer) 53 L, Glucose 103 H, Lactate 0.7, Calcium 8.9, Total Bilirubin 0.4, AST 31, ALT 21, Alkaline Phosphatase 47, Total Protein 6.9, Albumin 4.0, Globulin 2.9, Albumin/Globulin Ratio 1.4 01/29/24 05:30: WBC 4.7 L, RBC 4.15 L, Hgb 12.6 D, Hct 40.1, MCV 96.6, MCH 30.3, MCHC 31.4 L, RDW 13.6, Plt Count 198, MPV 8.3, Neut % (Auto) 43.6, Lymph % (Auto) 41.4, [place] % (Auto) 10.9 H, Eos % (Auto) 3.1, Baso % (Auto) 1.0, Neut # (Auto) 2.0, Lymph # (Auto) 1.9, [place] # (Auto) 0.5, Eos # (Auto) 0.2, Baso # (Auto) 0.1, Sodium 140, Potassium 3.2 L, Chloride 105, Carbon Dioxide 25, Anion Gap 13.2, BUN 10, Creatinine 1.00, Estimated Creat Clear 54, Estimated GFR 54 L, Est GFR ( Amer) 66 D, Glucose 87, Calcium 8.1 L I & O for Last 24 hours: Intake & Output 01/26/24 01/27/24 01/28/24 01/29/24 23:59 23:59 23:59 23:59 Intake Total 480 / 1320 1180 / 1180 Output Total 0 / 0 0 / 0 Balance 480 / 1320 1180 / 1180 Weight 68.209 kg 68.209 kg Constitutional Constitutional: no acute distress *Routine HEENT Exam Head: Present normocephalic Eye: Present EOMI and PERRL ENT: Present mucous membranes moist *Routine Neck Exam Neck: Present supple; Absent lymphadenopathy *Routine Respiratory Exam Respiratory: Present CTA bilaterally *Routine Cardiovascular Exam Cardiovascular: Present RRR *Routine Abdominal Exam Abdominal: Present soft and normoactive bowel sounds; Absent tenderness *Routine Extremities Exam Extremities: Absent cyanosis, clubbing or edema *Routine Skin Exam Skin: Present warm; Absent rash *Routine Neurological Exam Neurological: Present alert and oriented X3 Results Data Completed and Pending Labs on day of discharge: Labs from last 24 hours 01/29/24 01/28/24 05:30 13:57 WBC 4.7 L 5.2 RBC 4.15 L 4.57 Hgb 12.6 D 14.1 Hct 40.1 43.5 MCV 96.6 95.2 MCH 30.3 30.8 MCHC 31.4 L 32.4 RDW 13.6 13.6 Plt Count 198 204 MPV 8.3 7.8 Neut % (Auto) 43.6 62.6 Lymph % (Auto) 41.4 27.0 [place] % (Auto) 10.9 H 9.0 Eos % (Auto) 3.1 0.5 Baso % (Auto) 1.0 0.9 Neut # (Auto) 2.0 3.3 Lymph # (Auto) 1.9 1.4 [place] # (Auto) 0.5 0.5 Eos # (Auto) 0.2 0.0 Baso # (Auto) 0.1 0.1 Sodium 140 138 Potassium 3.2 L 3.6 Chloride 105 105 Carbon Dioxide 25 25 Anion Gap 13.2 11.6 BUN 10 11 D Creatinine 1.00 1.20 H Estimated Creat Clear 54 47 Estimated GFR 54 L 44 L Est GFR ( Amer) 66 D 53 L Glucose 87 103 H Lactate 0.7 Calcium 8.1 L 8.9 Total Bilirubin 0.4 AST 31 ALT 21 Alkaline Phosphatase 47 Total Protein 6.9 Albumin 4.0 Globulin 2.9 Albumin/Globulin Ratio 1.4 DS: Diagnosis Discharge Diagnosis (1) Diverticulitis: Status: Acute Code(s): K57.92 - Diverticulitis of intestine, part unspecified, without perforation or abscess without bleeding (2) Acute UTI: Status: Acute Code(s): N39.0 - Urinary tract infection, site not specified (3) General weakness: Status: Acute Code(s): R53.1 - Weakness Meds Home Medications and Allergies Home Medications Medication Instructions Recorded Confirmed Type amlodipine 5 mg-benazepril 20 mg 1 cap PO DAILY 01/28/24 01/28/24 History capsule donepezil 10 mg tablet 10 mg PO HS 01/28/24 01/28/24 History escitalopram oxalate 10 mg tablet 10 mg PO DAILY 01/28/24 01/28/24 History memantine 14 mg capsule 14 mg PO DAILY 01/28/24 01/28/24 History sprinkle,extended release 24hr ondansetron 4 mg disintegrating 4 mg PO Q6HP PRN nausea and 01/28/24 01/28/24 History tablet vomiting pravastatin 40 mg tablet 40 mg PO DAILY 01/28/24 01/28/24 History levofloxacin 750 mg tablet 750 mg PO DAILY 7 days #7 tabs 01/29/24 Rx metronidazole 500 mg tablet 500 mg PO TID 7 days #21 tabs 01/29/24 Rx quetiapine 25 mg tablet 25 mg PO HS 7 days #7 tabs 01/29/24 Rx New Prescriptions to Start Prescriptions: levofloxacin Nabil,Irfan metronidazole Nabil,Irfan quetiapine Nabil,Irfan Allergies Allergy/AdvReac Type Severity Reaction Status Date / Time Latex, Natural Rubber Allergy Intermediate Rash Verified 01/28/24 15:14 Penicillins Allergy Verified 01/27/24 13:56 Sulfa (Sulfonamide Allergy Verified 01/27/24 13:56 Antibiotics) Discharge Plan Disposition Patient Disposition: Home, Self-Care Condition: Good Follow up Plan Follow up with: Celina Richmond APRN [Primary Care Provider] - 02/10/24 11:00 am Prescriptions/Medication Reconciliation: New quetiapine 25 mg Tablet 25 mg PO HS 7 Days Qty: 7 0RF levofloxacin 750 mg tablet 750 mg PO DAILY 7 Days Qty: 7 0RF metronidazole 500 mg tablet 500 mg PO TID 7 Days Qty: 21 0RF Continued pravastatin 40 mg tablet 40 mg PO DAILY Patient Comments: TAKE 1 TABLET BY MOUTH DAILY donepezil 10 mg tablet 10 mg PO HS Patient Comments: TAKE 1 TABLET BY MOUTH DAILY AT BEDTIME amlodipine-benazepril 5-20 mg capsule 1 cap PO DAILY Patient Comments: TAKE 1 CAPSULE BY MOUTH ONCE DAILY escitalopram oxalate 10 mg tablet 10 mg PO DAILY Patient Comments: TAKE 1 TABLET BY MOUTH DAILY memantine 14 mg capsule,sprinkle,ER 24hr 14 mg PO DAILY Patient Comments: TAKE 1 CAPSULE BY MOUTH DAILY ondansetron 4 mg tablet,disintegrating 4 mg PO Q6HP PRN (Reason: nausea and vomiting) Discontinued levofloxacin 750 mg tablet 750 mg PO DAILY 10 Days Qty: 10 0RF metronidazole 500 mg tablet 500 mg PO TID Problem Reconciliation Problems Reviewed?: Yes Patient Discharge Instructions ACTIVITY: Ambulate as tolerated DIET: continue same diet Patient Instructions: DI for Urinary Tract Infection (UTI), DI for Altered Mental Status Providers Primary Care Provider: Celina Richmond Provider: Tonja Ferrer Attending Provider: Tonja Ferrer
== END 2024-01-29 14:00 | disposition home or self-care (01) ==
LOC: ER 13:56 → 2ND 14:43
PROVIDERS: Admitting Provider Internal Medicine; Emergency Provider Emergency Medicine; PCP Nurse Practitioner Family; Visit Provider Internal Medicine
DX: K57.92 Diverticulitis of intestine, part unspecified, without perforation or abscess without bleeding (principal); N39.0 Urinary tract infection, site not specified; R53.1 Weakness; Z79.899 Other long term (current) drug therapy; I10 Essential (primary) hypertension; E78.5 Hyperlipidemia, unspecified; F03.911 Unspecified dementia, unspecified severity, with agitation
CPT/HCPCS: 36415; 80048; 80053; 83605; 85025; 87040; 99285; G0378; J0696; J1956

== ENCOUNTER 2024-01-30 15:58 | Observation (INO) | payer MEDICARE, SELFPAY ==
[2024-01-30 15:59] VITALS: BP 122/68; PULSE 58; RESP 16; TEMP 36.8; O2SAT 98; BMI 27.4
[2024-01-30 16:14] LABS: Microscopic, Urine URINE MICROSCOPIC (MICROSCOPIC)
--- OUTSIDE RECORDS SUMMARY | 2024-01-30 16:14 | XMS_ITS ---
Author Name Unknown Organization Unknown ALLERGIES AND ADVERSE REACTIONS No information ASSESSMENT No information CHIEF COMPLAINT No information MEDICATIONS No information OBJECTIVE DATA No information PHYSICAL EXAMINATION No information TREATMENT PLAN Planned Care Start Date Provider Encounter for Check-up [id number] [place] PROBLEMS No information RESULTS No information REVIEW OF SYSTEMS No information SUBJECTIVE DATA No information VITAL SIGNS No information
[2024-01-30 16:33] LABS: Appearance,Urine CLEAR (Clear); Bilirubin,Urine Negative (Negative); Blood, Urine 1+ (Negative); Color,Urine YELLOW (Yellow); Glucose,Urine (UA) Negative (Negative); Ketones,Urine Negative (Negative); Leukocyte Esterase,Urine TRACE (Negative); Nitrate,Urine Negative (Negative); Protein,Urine Negative (Negative); Specific Gravity, Urine >= 1.030 (1.005-1.030); Urobilinogen,Urine 0.2 EU/dl (0.2)
[2024-01-30 16:46] LABS: Bacteria,Urine 1+ /lpf; RBC,Urine Occasional #/hpf (0-3); Squamous Epithelial Cell,Urine Occasional #/hpf (0-5)
[2024-01-30 16:47] LABS: Calcium Oxalate Crystals,Urine Trace /lpf
[2024-01-30 17:05] VITALS: BP 138/70; PULSE 69; O2SAT 93
--- NOTE | 2024-01-30 17:27 | CT_ITS ---
PROCEDURE INFORMATION: Exam: CT Head Without Contrast Exam date and time: 01/30/2024 6:22 PM Age: 74 years old Clinical indication: Altered mental status/memory loss; Additional info: AMS TECHNIQUE: Imaging protocol: Computed tomography of the head without contrast. Radiation optimization: All CT scans at this facility use at least one of these dose optimization techniques: automated exposure control; mA and/or kV adjustment per patient size (includes targeted exams where dose is matched to clinical indication); or iterative reconstruction. COMPARISON: No relevant prior studies available. FINDINGS: Brain: The inferior right basal ganglia demonstrate an old infarct with encephalomalacia. There is no acute hemorrhage or obvious acute infarct. Cortical volume loss noted. Scattered hypodensities noted in the bilateral periventricular and deep white matter. Atherosclerosis noted in the bilateral cavernous carotid arteries. Cerebral ventricles: No ventriculomegaly. Paranasal sinuses: Surgical plates noted along the bilateral anterior-inferior rocha of the maxillary sinuses and maxillary bones. Correlate clinically for prior trauma Visualized sinuses are unremarkable. No fluid levels. Mastoid air cells: Visualized mastoid air cells are well aerated. Bones: Unremarkable. No acute fracture. Soft tissues: Unremarkable. IMPRESSION: 1. No acute intracranial disease or hemorrhage. 2. No obvious acute infarct. Please note if the patient's symptoms do not improve, or worsen, consider MRI with diffusion imaging. 3. Old infarct, right inferior basal ganglia 4. Chronic deep white matter ischemic and senescent changes noted. Please see above.
--- NOTE | 2024-01-30 17:29 | CT_ITS ---
PROCEDURE INFORMATION: Exam: CT Abdomen And Pelvis With Contrast Exam date and time: 01/30/2024 6:24 PM Age: 74 years old Clinical indication: Abdominal pain; Additional info: Worsened lower abd pain TECHNIQUE: Imaging protocol: Computed tomography of the abdomen and pelvis with contrast. Radiation optimization: All CT scans at this facility use at least one of these dose optimization techniques: automated exposure control; mA and/or kV adjustment per patient size (includes targeted exams where dose is matched to clinical indication); or iterative reconstruction. Contrast material: ISOVUE; Contrast volume: 75 ml; Contrast route: IV; COMPARISON: CT ABDOMEN PELVIS W CON 01/27/2024 3:59 PM FINDINGS: Lungs: Visualized lung bases are clear. Heart: Heart size normal. Mild-moderate coronary artery calcification. Esophagus: The visualized distal esophagus is largely contracted without gross abnormality. Liver: Normal contour. No mass lesions. No intrahepatic biliary ductal dilatation. Gallbladder and bile ducts: Normal. No calcified stones. No ductal dilation. Pancreas: Normal. No inflammatory changes or ductal dilation. Spleen: Granulomatous calcifications in the spleen without acute splenic abnormality. Adrenal glands: Normal. No adrenal mass. Kidneys and ureters: No acute abnormalities. No hydronephrosis or hydroureter. No urinary tract stones are identified. Chronic asymmetric left renal cortical thinning unchanged.There is a low-density circumscribed right renal cortical lesion suggesting renal cyst for which no further imaging evaluation is required. Stomach and bowel: The stomach is unremarkable. There is excessive liquid stool content in the mid to distal small bowel and colonwith mildly increased mucosal enhancement, suggesting mild generalized enterocolitis and developing diarrheal state, versus ileus. No small bowel dilatation or transition point suggestive of bowel obstruction was identified. Previously identified changes of acute diverticulitis in the distal sigmoid colon are mildly improved since 01/27/2024. 12 mm intramural aerated focus in the leftward wall of the involved segment suggesting a small intramural sinus tract is slightly decreased in size. No evidence of bowel perforation or abscess formation. Moderate distal colonic diverticulosis. Appendix: The appendix is normal in caliber and demonstrates no evidence of appendicitis. Intraperitoneal space: No peritoneal free fluid or air. Vasculature: No acute process. No abdominal aortic aneurysm. Mild-moderate calcific atherosclerosis. Circumaortic left renal vein configuration noted. Lymph nodes: No adenopathy. Urinary bladder: The urinary bladder is partially contracted without gross abnormality. Reproductive: Prior hysterectomy. Bones/joints: No acute osseous abnormalities. Osteopenia. 13 mm bone island in the left sacral ala. multilevel severe lumbar disc degenerative changes with grade 1 anterolisthesis L4-L5. Incidental T11 vertebral body hemangioma again noted. Soft tissues: No acute soft tissue abnormalities. Very small fatty umbilical hernia . No evidence of associated bowel herniation or strangulation. IMPRESSION: 1. The previously identified changes of acute diverticulitis in the distal sigmoid colon are mildly improved since 01/27/2024. There is a small aerated intramural sinus tract which is decreased in size. No evidence of bowel perforation or abscess development. 2. Mild generalized changes of enterocolitis and diarrheal state versus ileus in the small and large bowel. No evidence of bowel obstruction or perforation. 3. Moderate distal colonic diverticulosis. 4. Additional nonemergent findings detailed above. COMMENTS: Consistent with the [employer]'s Incidental Findings Committee white paper (J Am Alexandra Radiol 2018): Any incidental renal lesion less than 1 cm or classified as too small to characterize, or any incidental cystic renal lesion characterized as simple-appearing, is likely benign. No follow-up imaging is recommended for these lesions per consensus recommendations based on imaging criteria.
[2024-01-30 17:30] VITALS: BP 142/74; PULSE 59; O2SAT 99
--- NOTE | 2024-01-30 17:51 | ECG_ITS ---
APPROVED REPORT Exam: Resting ECG HR:57 bpm ECG Measurements Heart Rate 57 AXES MI 147 P 59 QRSd 90 QRS 64 QT 393 T 16 QTc 388 Conclusion SINUS BRADYCARDIA BORDERLINE ECG Electronically signed by : RENÉ BOSWELL, 01/31/2024 00:36:41
--- NOTE | 2024-01-30 18:04 | PC.NURSE ---
assisted pt to bathroom by wc, pt stated she had a bm. assisted pt back to room and into bed. put bed rails up
[2024-01-30 18:24] LABS: Basophils # 0.1 K/mm3 (0-0.2); Basophils % 0.7 % (0.1-2.0); Eosinophils # 0.1 K/mm3 (0.0-0.4); Eosinophils % 1.4 % (0.1-12.0); Hematocrit 40.5 % (37.0-47.0); Hemoglobin 13.3 g/dL (12.2-16.2); Lymphocytes # 2.2 K/mm3 (0.7-4.5); Lymphocytes % 24.7 % (10-50); Mean Corpuscular HGB Conc 32.8 g/dL (31.8-35.4); Mean Corpuscular Hemoglobin 30.8 pg (27.0-31.2); Mean Platelet Volume 7.8 fl (7.4-10.4); Monocytes # 0.6 K/mm3 (0.1-1.0); Neutrophils % 66.3 % (37.0-80.0); Platelet Count 222 K/mm3 (142-424); Red Blood Count 4.31 M/mm3 (4.20-5.40); Red Cell Distribution Width 13.6 % (11.5-17.5); White Blood Count 9.1 K/mm3 (4.8-10.8)
[2024-01-30] MEDS: IOPAMIDOL-370 (76%);100ML BOTTLE 75 ML IV (18:26)
--- NOTE | 2024-01-30 18:31 | HMH.EDGENADL ---
Discharge Plan Disposition Patient Disposition: Admitted Clinical Impressions Clinical Impression: Acute UTI, General weakness, Diverticulitis, Delirium, Elevated lipase Discharge ED Provider: Renetta Aguirre General Adult HPI General Chief complaint: Urogenital-Female Stated complaint: possible uti, AMS Time Seen by Provider: 01/30/24 16:04 Mode of Arrival: Wheelchair Source of Information: Patient and Relative Limitations: No Limitations Description of Symptoms (Recalled from ER Triage Doc. by RN): Reports having a UTI and generally not feeling well. States she has been in this emergency room twice this week for her UTI and AMS. States that she isn't feeling any better since being discharged from the hospital. History of Present Illness HPI narrative: This patient is a 74-year-old female with a history of hypertension, memory issues, and hyperlipidemia as well as recent emotional stress given the of her presenting with concern for lower abdominal pain, nausea, confusion, and fatigue. Patient was just discharged from the hospital yesterday after 2 ED evaluations at which point she was diagnosed with diverticulitis and urinary tract infection. She was seen here on 01/27/2024 and diagnosed with these things, at which point she was discharged home with antibiotics and instructions for supportive management of UTI and uncomplicated diverticulitis. She was no better, so she returned on 01/28/2024 and was admitted for IV antibiotics. She was discharged on 01/29/2024, but family states she has been sleeping pretty much the entire time since then, has had nausea with no appetite, and has complained of worsening lower abdominal pain. Family notes that she is also been delirious with worsening delirium just prior to arrival. That is what prompted them to bring her in. Patient alert and oriented at this time. Patient also notes that a tick was found in her upper back. She notes that she had erythema, induration, and pain at the site of this, but it is starting to get better. She is unsure how long the tick was there. Related Data Home Medications Medication Instructions Recorded Confirmed amlodipine 5 mg-benazepril 20 mg 1 cap PO DAILY 01/28/24 01/30/24 capsule donepezil 10 mg tablet 10 mg PO HS 01/28/24 01/30/24 escitalopram oxalate 10 mg tablet 10 mg PO DAILY 01/28/24 01/30/24 memantine 14 mg capsule 14 mg PO DAILY 01/28/24 01/30/24 sprinkle,extended release 24hr ondansetron 4 mg disintegrating 4 mg PO Q6HP PRN nausea and 01/28/24 01/30/24 tablet vomiting pravastatin 40 mg tablet 40 mg PO DAILY 01/28/24 01/30/24 Previous Rx's Medication Instructions Recorded levofloxacin 750 mg tablet 750 mg PO DAILY 7 days #7 tabs 01/29/24 metronidazole 500 mg tablet 500 mg PO TID 7 days #21 tabs 01/29/24 quetiapine 25 mg tablet 25 mg PO HS 7 days #7 tabs 01/29/24 Allergies Allergy/AdvReac Type Severity Reaction Status Date / Time Latex, Natural Rubber Allergy Intermediate Rash Verified 01/28/24 15:14 Penicillins Allergy Verified 01/27/24 13:56 Sulfa (Sulfonamide Allergy Verified 01/27/24 13:56 Antibiotics) [facility] Disclaimer: The information contained in this section may have been updated after the patient was seen, as this information can be updated by other users. Medical History Fixation hardware in spine Fixation hardware in foot Hyperlipemia Hypertension Surgical History History of hysterectomy Family History (Updated 01/30/24 @ 21:39 by Latosha Pepper RN) Other No significant family history Social History Smoking Status: Never smoker alcohol intake: never current occupational status: retired Travel in the last 8 weeks: None ROS Obtained: Yes All systems reviewed & no additional complaints except as documented Physical Exam General General appearance: alert and in no apparent distress Head Head exam: atraumatic and normocephalic Eye Eye exam: Present normal appearance, PERRL and EOMI ENT ENT exam: Present normal exam, normal oropharynx, mucous membranes moist and normal external ear exam Neck Neck exam: Present normal inspection, full ROM and trachea midline; Absent tenderness Chest Chest inspection: Present normal inspection and symmetric chest wall rise; Absent tenderness Respiratory Respiratory exam: Present normal lung sounds bilaterally; Absent respiratory distress, wheezes, stridor or accessory muscle use Cardiovascular Cardiovascular exam: Present regular rate and normal rhythm Abdominal Exam Abdominal exam: Present soft, tenderness (Voluntary, suprapubic) and guarding (Voluntary, suprapubic); Absent distention Extremities Exam Extremities exam: Present normal inspection, full ROM and normal capillary refill; Absent tenderness or edema Back Exam Back exam: Present normal inspection and full ROM; Absent tenderness Neurological Exam Neurological exam: Present alert, oriented X3, CN II-XII intact and normal gait; Absent motor sensory deficit Psychiatric Psychiatric exam: Present normal affect and normal mood Skin Skin exam: Present warm and dry Medical Decision Making Medical Records Medical records reviewed: Yes I reviewed the patient's medical records. [place] Inquiry Pt receiving controlled substance: No Vital Signs: 01/30/24 15:59 01/30/24 17:05 01/30/24 17:30 Temperature 98.2 F Temperature Source Oral Pulse Rate 69 59 L Pulse Rate [Radial] 58 L Respiratory Rate 16 Blood Pressure 138/70 142/74 H Blood Pressure [Right Arm] 122/68 Blood Pressure Mean [Right Arm] 86 Blood Pressure Source Automatic Cuff Blood Pressure Source [Right Arm] Automatic Cuff Blood Pressure Position Supine Blood Pressure Position [Right Arm] Sitting 02 Sat by Pulse Oximetry 98 93 L 99 Oxygen Delivery Method Room Air Room Air Room Air 01/30/24 20:58 Temperature 98.2 F Temperature Source Oral Pulse Rate 65 Pulse Rate [Radial] Respiratory Rate 20 Blood Pressure 139/70 Blood Pressure [Right Arm] Blood Pressure Mean [Right Arm] Blood Pressure Source Automatic Cuff Blood Pressure Source [Right Arm] Blood Pressure Position Blood Pressure Position [Right Arm] 02 Sat by Pulse Oximetry Oxygen Delivery Method Room Air Lab Data Lab results reviewed: Yes I reviewed the patient's lab results. Lab Results 01/30/24 16:10: Urine Color Yellow, Urine Appearance Clear, Urine pH 6.0, Ur Specific [place] >= 1.030, Urine Protein Negative, Urine Glucose (UA) Negative, Urine Ketones Negative, Urine Blood 1+, Urine Nitrate Negative, Urine Bilirubin Negative, Urine Urobilinogen 0.2, Ur Leukocyte Esterase Trace, Urine RBC Occasional, Urine WBC 3-5, Ur Squamous Epith Cells Occasional, Calcium Oxalate Crystal Trace, Urine Bacteria 1+ 01/30/24 17:29: VBG pH 7.39, VBG pCO2 38.5, VBG pO2 51.8 H, VBG HCO3 22.8 L, VBG Total CO2 24.0, VBG O2 Saturation 84.3 H, VBG Base Excess -2.1, VBG Lactic Acid 1.2 01/30/24 18:09: WBC 9.1 D, RBC 4.31, Hgb 13.3, Hct 40.5, MCV 94.0, MCH 30.8, MCHC 32.8, RDW 13.6, Plt Count 222, MPV 7.8, Neut % (Auto) 66.3, Lymph % (Auto) 24.7, [place] % (Auto) 7.0, Eos % (Auto) 1.4, Baso % (Auto) 0.7, Neut # (Auto) 6.0, Lymph # (Auto) 2.2, [place] # (Auto) 0.6, Eos # (Auto) 0.1, Baso # (Auto) 0.1, ESR 36 H, Sodium 138, Potassium 3.4 L, Chloride 103, Carbon Dioxide 25, Anion Gap 13.4, BUN 14 D, Creatinine 1.10 H, Estimated Creat Clear 49, Estimated GFR 49 L, Est GFR ( Amer) 59, Glucose 97, Calcium 9.0, Total Bilirubin 0.7, AST 32, ALT 21, Alkaline Phosphatase 47, C-Reactive Protein 1.6, Total Protein 6.4, Albumin 3.8, Globulin 2.6, Albumin/Globulin Ratio 1.5, Lipase 990 H 01/30/24 18:09 01/30/24 18:09 Orders (Tests/Meds): ED MEDICATIONS Generic Name Dose Route Start Last Admin Trade Name Freq PRN Reason Stop Dose Admin Acetaminophen 650 mg 01/30/24 20:29 Acetaminophen 325mg Tab PO 02/29/24 20:28 Q4HP PRN Fever or Mild Pain (1-3) Al Hydrox/Mg Hydrox/Simethicone 30 ml 01/30/24 20:29 Aluminum/Magnesium/Simethicone 30ml Udc PO 02/29/24 20:28 QIDP PRN Dyspepsia Enoxaparin Sodium 40 mg 01/30/24 20:45 01/30/24 20:55 Enoxaparin 40mg/0.4ml Syringe SQ 02/29/24 20:44 40 mg DAILY ELMER Administration Sodium Chloride 1,000 mls @ 50 mls/hr 01/30/24 20:30 01/30/24 21:20 Sod Chlor 0.9% 1000ml Bag IV 02/29/24 20:29 50 mls/hr .Q20H ELMER Administration Metronidazole 500 mg in 100 mls @ 100 mls/hr 01/30/24 20:30 01/30/24 20:55 Flagyl 500mg/100ml Ivpb IV 02/09/24 20:29 100 mls/hr Q8H ELMER Administration Morphine Sulfate 2 mg 01/30/24 20:29 Morphine 2mg/Ml Syringe IV 02/29/24 20:28 Q2HP PRN Severe Pain (7-10) Ondansetron HCl 4 mg 01/30/24 20:29 Ondansetron 4mg/2ml Vial IV 02/29/24 20:28 Q8HP PRN Nausea Pantoprazole Sodium 40 mg 01/30/24 21:00 01/30/24 20:55 Pantoprazole 40mg Vial IV 02/29/24 20:59 40 mg HS ELMER Administration Discontinued Medications Generic Name Dose Route Start Last Admin Trade Name Freq PRN Reason Stop Dose Admin Lactated Ringer's 1,000 mls @ 999 mls/hr 01/30/24 20:08 01/30/24 20:10 Lactated Ringer's 1000 Ml Bag IV 01/30/24 21:08 999 mls/hr .Q1H1M ONE Administration Iopamidol 75 ml 01/30/24 18:24 01/30/24 18:26 Iopamidol-370 (76%);100ml Bottle IV 01/30/24 18:25 75 ml ONCE ONE Administration ORDERS Category Date Time Status CT abdomen pelvis w con Stat Cat Scan 01/30/24 17:[address] head/brain wo con Stat Cat Scan 01/30/24 17:27 Completed C-Reactive Protein Stat Lab 01/30/24 18:09 Completed Complete Blood Count Auto Diff AMLAB Lab 01/31/24 06:00 Ordered Complete Blood Count Auto Diff Stat Lab 01/30/24 18:09 Completed Comprehensive Metabolic Panel AMLAB Lab 01/31/24 06:00 Ordered Comprehensive Metabolic Panel Stat Lab 01/30/24 18:09 Completed Erythrocyte Sedimentation Rate Stat Lab 01/30/24 18:09 Completed Lipase Stat Lab 01/30/24 18:09 Completed Lyme Ab, Modified 2-Tier Stat Lab 01/30/24 18:09 Received Lyme B. burgdorferi PCR Blood Stat Lab 01/30/24 18:09 Received Magnesium AMLAB Lab 01/31/24 06:00 Ordered UA [Urinalysis and Microscopic] Stat Lab 01/30/24 16:10 Completed Blood Culture Stat Micro 01/30/24 18:09 Received Urine Culture Stat Micro 01/30/24 Received Venous Blood Gas Stat RT 01/30/24 17:29 Completed ECG Data Tracing #1: I reviewed this ECG and interpreted as documented below: Sinus bradycardia with a ventricular rate of [address] changes concerning for ischemia. Normal axis and intervals. ECG initial impression date: 01/30/24 ECG initial impression time: 17:19 Medical Decision Narrative: In summary, this patient is a 74-year-old female presenting to the Emergency Department for evaluation of abdominal pain, nausea, poor appetite, fatigue, and delirium at home. She also recently had a tick bite. Differential diagnoses considered include but are not limited to complication of diverticulitis, failed outpatient treatment of urinary tract infection and diverticulitis, electrolyte derangements, intracranial pathology, Lyme disease. Ruling out the most morbid conditions drove assessment. It should be noted patient's history includes hypertension, memory issues, hyperlipidemia which are likely not at goal therapy. This complicates all aspects of care by increasing patient's risk for morbidity. I reviewed patient's past medical records and noted her to previous ED evaluations and admission as per HPI. On exam, the patient is tired appearing. She is alert and oriented with no focal neurologic deficits. She does have lower abdominal tenderness with voluntary guarding. I looked at the site of the tick bite on her upper back and noted no significant rashes, induration, or other concerns. Workup included CBC, CMP, lipase, VBG, lactic acid, CT head without contrast, urinalysis, urine culture, CT abdomen pelvis with IV contrast, Lyme studies. EKG was obtained and is reassuring. I independently interpreted CTs prior to the radiologist read and noted no acute intracranial pathology. Patient still has diverticulitis though improving. Please see their read for final interpretation. Labs were obtained that demonstrated persistent urinary tract infection, elevated inflammatory markers, and slight increase in her white blood cell count, though not significantly elevated. She has mild hypokalemia. Creatinine is around the baseline and has been the last few days. Lipase still remains elevated as it was on her initial evaluation.. Given that the patient has failed outpatient treatment twice now of urinary tract infection and diverticulitis, I feel she would benefit from admission. I contacted the hospitalist and had an interactive discussion. The patient was admitted in stable condition. Critical Care Critical Care Time Critical Care Time: No
[2024-01-30 18:40] LABS: Alanine Aminotransferase 21 U/L (12-78); Albumin Level 3.8 g/dl (3.5-5.0); Albumin/Globulin Ratio 1.5 (1.1-1.8); Alkaline Phosphatase 47 U/L (38-126); Anion Gap 13.4 mEq/L (5-15); Aspartate Amino Transferase 32 U/L (14-36); Bilirubin,Total 0.7 mg/dl (0.2-1.3); Blood Urea Nitrogen 14 mg/dl (7-17); Carbon Dioxide 25 mmol/L (22.0-30.0); Chloride 103 mmol/L (98-107); Creatinine Clearance Estimated 49 mL/min (50-200); Estimated Glomerular Filt Rate 49 ml/min (>60); GFR (African American) 59 ML/MIN (>60); Globulin 2.6 g/dL (1.3-3.2); Glucose 97 mg/dl (74-100); Potassium 3.4 mmoL/L (3.5-5.1); Sodium 138 mmol/L (136-145); Total Protein,Serum 6.4 g/dl (6.3-8.2)
[2024-01-30 18:41] LABS: Lactate Venous 1.2 mmol/L (0.4-2.0); VBG Base Excess -2.1 mmol/L (-2.4-2.3); VBG HCO3 22.8 mmol/L (23-30); VBG Oxygen Saturation 84.3 % (50-70); VBG PCO2 38.5 mmol/L (35-51); VBG PH 7.39 mmol/L (7.31-7.41); VBG PO2 51.8 mmol/L (28-40)
[2024-01-30 18:45] LABS: C-Reactive Protein 1.6 mg/L (0-4)
[2024-01-30 18:57] LABS: Lipase 990 U/L (23-300)
[2024-01-30 19:08] LABS: Erythrocyte Sedimentation Rate 36 mm/hr (0-30)
[2024-01-30] MEDS: LACTATED RINGERS 1000ML 1,000 ML 999 ML IV (20:10)
--- NOTE | 2024-01-30 20:18 | PC.NURSE ---
md donaldson attempted to call hospitalist
--- NOTE | 2024-01-30 20:32 | P.HP_ITS ---
History of Present Illness *Admission Date: 01/30/24 *Reason for visit:: abd pain *History of present illness: Patient is a 74-year-old female with past medical history of dementia who presents to the hospital due to change in mental status patient has been aggressive at home per family, patient has not been in her usual state of mental health. No reports of fevers diarrhea constipation. discharged yesterday. came back today with worsening abdominal pain, and fluctuating mental status. Family notes that she is also been delirious with worsening delirium just prior to arrival. That is what prompted them to bring her in. Patient alert and oriented at this time. cooperative non aggressive. On further evaluation patient was noted to have acute diverticulitis and urinary tract infection, admitted for further evaluation. [facility] Disclaimer: The information contained in this section may have been updated after the patient was seen, as this information can be updated by other users. Medical History Fixation hardware in spine Fixation hardware in foot Hyperlipemia Hypertension Surgical History History of hysterectomy Family History (Updated 01/30/24 @ 21:39 by Latosha Pepper RN) Other No significant family history Social History Smoking Status: Never smoker alcohol intake: never current occupational status: retired Travel in the last 8 weeks: None Review of Systems Review of Systems Review of systems:: pertinent systems reviewed and negative unless documented below Meds Home Medications and Allergies Home Medications Medication Instructions Recorded Confirmed Type amlodipine 5 mg-benazepril 20 mg 1 cap PO DAILY 01/28/24 01/30/24 History capsule donepezil 10 mg tablet 10 mg PO HS 01/28/24 01/30/24 History escitalopram oxalate 10 mg tablet 10 mg PO DAILY 01/28/24 01/30/24 History memantine 14 mg capsule 14 mg PO DAILY 01/28/24 01/30/24 History sprinkle,extended release 24hr ondansetron 4 mg disintegrating 4 mg PO Q6HP PRN nausea and 01/28/24 01/30/24 History tablet vomiting pravastatin 40 mg tablet 40 mg PO DAILY 01/28/24 01/30/24 History levofloxacin 750 mg tablet 750 mg PO DAILY 7 days #7 tabs 01/29/24 01/30/24 Rx metronidazole 500 mg tablet 500 mg PO TID 7 days #21 tabs 01/29/24 01/30/24 Rx quetiapine 25 mg tablet 25 mg PO HS 7 days #7 tabs 01/29/24 01/30/24 Rx New Prescriptions to Start Prescriptions: Allergies Allergy/AdvReac Type Severity Reaction Status Date / Time Latex, Natural Rubber Allergy Intermediate Rash Verified 01/28/24 15:14 Penicillins Allergy Verified 01/27/24 13:56 Sulfa (Sulfonamide Allergy Verified 01/27/24 13:56 Antibiotics) Exam Data for Last 24 hours Vital signs and Labs for Last 24 Hours: Temp Pulse Resp BP Pulse Ox O2 Del Method 98.2 F 59 L 16 142/74 H 99 Room Air 01/30/24 15:59 01/30/24 17:30 01/30/24 15:59 01/30/24 17:30 01/30/24 17:30 01/30/24 17:30 Laboratory Results - last 24 hr 01/30/24 16:10: Urine Color Yellow, Urine Appearance Clear, Urine pH 6.0, Ur Specific [place] >= 1.030, Urine Protein Negative, Urine Glucose (UA) Negative, Urine Ketones Negative, Urine Blood 1+, Urine Nitrate Negative, Urine Bilirubin Negative, Urine Urobilinogen 0.2, Ur Leukocyte Esterase Trace, Urine RBC Occasional, Urine WBC 3-5, Ur Squamous Epith Cells Occasional, Calcium Oxalate Crystal Trace, Urine Bacteria 1+ 01/30/24 17:29: VBG pH 7.39, VBG pCO2 38.5, VBG pO2 51.8 H, VBG HCO3 22.8 L, VBG Total CO2 24.0, VBG O2 Saturation 84.3 H, VBG Base Excess -2.1, VBG Lactic Acid 1.2 01/30/24 18:09: WBC 9.1 D, RBC 4.31, Hgb 13.3, Hct 40.5, MCV 94.0, MCH 30.8, MCHC 32.8, RDW 13.6, Plt Count 222, MPV 7.8, Neut % (Auto) 66.3, Lymph % (Auto) 24.7, [place] % (Auto) 7.0, Eos % (Auto) 1.4, Baso % (Auto) 0.7, Neut # (Auto) 6.0, Lymph # (Auto) 2.2, [place] # (Auto) 0.6, Eos # (Auto) 0.1, Baso # (Auto) 0.1, ESR 36 H, Sodium 138, Potassium 3.4 L, Chloride 103, Carbon Dioxide 25, Anion Gap 13.4, BUN 14 D, Creatinine 1.10 H, Estimated Creat Clear 49, Estimated GFR 49 L , Est GFR ( Amer) 59, Glucose 97, Calcium 9.0, Total Bilirubin 0.7, AST 32, ALT 21, Alkaline Phosphatase 47, C-Reactive Protein 1.6, Total Protein 6.4, Albumin 3.8, Globulin 2.6, Albumin/Globulin Ratio 1.5, Lipase 990 H I & O for Last 24 hours: Intake & Output 01/27/24 01/28/24 01/29/24 01/30/24 23:59 23:59 23:59 23:59 Weight 68.039 kg Constitutional Constitutional: no acute distress *Routine HEENT Exam Head: Present normocephalic Eye: Present EOMI and PERRL ENT: Present mucous membranes moist *Routine Neck Exam Neck: Present supple; Absent lymphadenopathy *Routine Respiratory Exam Respiratory: Present CTA bilaterally *Routine Cardiovascular Exam Cardiovascular: Present RRR *Routine Abdominal Exam Abdominal: Present soft and normoactive bowel sounds; Absent tenderness *Routine Rectal Exam Rectal:: deferred *Routine Genitalia Exam Genitalia:: deferred *Routine Extremities Exam Extremities: Absent cyanosis, clubbing or edema *Routine Skin Exam Skin: Present warm; Absent rash *Routine Neurological Exam Neurological: Present alert and oriented X3 H&P: Result Imaging and Cardiology EKG: Status: image reviewed by me, Preliminary report and final report CT scan - abdomen: Status: image reviewed by me, Preliminary report and final report CT scan - head: Status: image reviewed by me, Preliminary report and final report Assessment and Plan *Assessment and plan (1) Diverticulitis: Status: Acute Category: Medical Code(s): K57.92 - Diverticulitis of intestine, part unspecified, without perforation or abscess without bleeding (2) Acute UTI: Status: Acute Category: Medical Code(s): N39.0 - Urinary tract infection, site not specified (3) General weakness: Status: Acute Category: Medical Code(s): R53.1 - Weakness Plan Patient is a 74-year-old female with past medical history of dementia who presents to the hospital due to change in mental status patient has been aggressive at home per family, patient has not been in her usual state of mental health. Family notes that she is also been delirious with worsening delirium just prior to arrival. That is what prompted them to bring her in. Patient alert and oriented at this time. No reports of fevers diarrhea constipation. On further evaluation patient was noted to have acute diverticulitis and urinary tract infection, was discharged home and came back c/o worsening symptoms. on arrival CT of abdomen showed slightly improvement of diverticulitis. no perforation or obstruction. ER requested admission. Discussion about benefits was made. Medicine agreed for. admitted for further evaluation. Assessment and plan Acute diverticulitis Urinary tract infection started IV Flagyl IV fluids Check blood cultures, urine culture Start on daily liquid diet, advance as tolerated As needed Zofran Acute delirium likely secondary to UTI in the setting of dementia Monitor Avoid benzodiazepines Resume home donepezil, memantine DVT prophylaxis-heparin
[2024-01-30] MEDS: PANTOPRAZOLE 40MG VIAL 40 MG IV (20:55)
[2024-01-30] MEDS: ENOXAPARIN 40MG/0.4ML SYRINGE 40 MG SQ (20:55)
[2024-01-30] MEDS: METRONIDAZ/SOD CHL 500 MG/100 ML PIGGYBACK 100 MG IV (20:55)
--- NOTE | 2024-01-30 20:57 | PC.NURSE ---
report called to moon schmid on 2nd floor at this time
[2024-01-30 20:58] VITALS: BP 139/70; PULSE 65; RESP 20; TEMP 36.8; O2SAT 97
--- NOTE | 2024-01-30 21:11 | PC.NURSE ---
Patient arrived to floor via wheelchair from the ED at 21:07.
[2024-01-30] MEDS: 0.9 % SODIUM CHLORIDE 1000ML 1,000 ML 50 ML IV (21:20)
[2024-01-31 04:00] VITALS: BP 131/68; PULSE 64; RESP 18; TEMP 37.3; O2SAT 97; BMI 27.6
[2024-01-31] MEDS: METRONIDAZ/SOD CHL 500 MG/100 ML PIGGYBACK 100 MG IV ×3 (04:30→20:57)
[2024-01-31 07:40] VITALS: BP 135/67; PULSE 61; RESP 20; TEMP 36.9; O2SAT 96
[2024-01-31 08:42] LABS: Basophils % 0.6 % (0.1-2.0); Eosinophils # 0.2 K/mm3 (0.0-0.4); Eosinophils % 2.1 % (0.1-12.0); Hematocrit 38.3 % (37.0-47.0); Hemoglobin 12.7 g/dL (12.2-16.2); Lymphocytes # 2.1 K/mm3 (0.7-4.5); Lymphocytes % 28.4 % (10-50); Mean Corpuscular HGB Conc 33.3 g/dL (31.8-35.4); Mean Corpuscular Hemoglobin 30.8 pg (27.0-31.2); Mean Corpuscular Volume 92.6 fl (81-99); Mean Platelet Volume 8.8 fl (7.4-10.4); Monocytes # 0.6 K/mm3 (0.1-1.0); Monocytes % 8.4 % (1.7-9.3); Neutrophils # 4.4 K/mm3 (1.8-7.8); Neutrophils % 60.5 % (37.0-80.0); Platelet Count 237 K/mm3 (142-424); Red Blood Count 4.13 M/mm3 (4.20-5.40); Red Cell Distribution Width 13.9 % (11.5-17.5); White Blood Count 7.3 K/mm3 (4.8-10.8)
[2024-01-31 08:44] LABS: Alanine Aminotransferase 19 U/L (12-78); Albumin Level 3.4 g/dl (3.5-5.0); Albumin/Globulin Ratio 1.4 (1.1-1.8); Alkaline Phosphatase 45 U/L (38-126); Anion Gap 12.4 mEq/L (5-15); Aspartate Amino Transferase 39 U/L (14-36); Bilirubin,Total 0.8 mg/dl (0.2-1.3); Blood Urea Nitrogen 9 mg/dl (7-17); Calcium 8.5 mg/dl (8.4-10.2); Carbon Dioxide 24 mmol/L (22.0-30.0); Chloride 104 mmol/L (98-107); Creatinine Clearance Estimated 54 mL/min (50-200); Estimated Glomerular Filt Rate 54 ml/min (>60); GFR (African American) 66 ML/MIN (>60); Globulin 2.5 g/dL (1.3-3.2); Glucose 94 mg/dl (74-100); Magnesium 1.7 mg/dl (1.6-2.3); Potassium 3.4 mmoL/L (3.5-5.1); Sodium 137 mmol/L (136-145); Total Protein,Serum 5.9 g/dl (6.3-8.2)
[2024-01-31] MEDS: ENOXAPARIN 40MG/0.4ML SYRINGE 40 MG SQ (09:16)
[2024-01-31] MEDS: ONDANSETRON 4MG/2ML VIAL 4 MG IV (10:42)
[2024-01-31] MEDS: MORPHINE 2MG/ML SYRINGE 2 MG IV (10:43)
[2024-01-31] MEDS: 0.9 % SODIUM CHLORIDE 1000ML 1,000 ML 50 ML IV (13:08)
--- NOTE | 2024-01-31 14:32 | P.PN_ITS ---
Subjective *Date: 01/31/24 *Time: 14:32 Interval history: seen at bedside, alert awake, denied CP, discussed with son at bedside Exam Data for Last 24 hours Vital signs and Labs for Last 24 Hours: Temp Pulse Resp BP Pulse Ox O2 Del Method 98.5 F 61 20 135/67 96 Room Air 01/31/24 07:40 01/31/24 07:40 01/31/24 07:40 01/31/24 07:40 01/31/24 07:40 01/31/24 13:00 Laboratory Results - last 24 hr 01/30/24 16:10: Urine Color Yellow, Urine Appearance Clear, Urine pH 6.0, Ur Specific [place] >= 1.030, Urine Protein Negative, Urine Glucose (UA) Negative, Urine Ketones Negative, Urine Blood 1+, Urine Nitrate Negative, Urine Bilirubin Negative, Urine Urobilinogen 0.2, Ur Leukocyte Esterase Trace, Urine RBC Occasional, Urine WBC 3-5, Ur Squamous Epith Cells Occasional, Calcium Oxalate Crystal Trace, Urine Bacteria 1+ 01/30/24 17:29: VBG pH 7.39, VBG pCO2 38.5, VBG pO2 51.8 H, VBG HCO3 22.8 L, VBG Total CO2 24.0, VBG O2 Saturation 84.3 H, VBG Base Excess -2.1, VBG Lactic Acid 1.2 01/30/24 18:09: WBC 9.1 D, RBC 4.31, Hgb 13.3, Hct 40.5, MCV 94.0, MCH 30.8, MCHC 32.8, RDW 13.6, Plt Count 222, MPV 7.8, Neut % (Auto) 66.3, Lymph % (Auto) 24.7, [place] % (Auto) 7.0, Eos % (Auto) 1.4, Baso % (Auto) 0.7, Neut # (Auto) 6.0, Lymph # (Auto) 2.2, [place] # (Auto) 0.6, Eos # (Auto) 0.1, Baso # (Auto) 0.1, ESR 36 H, Sodium 138, Potassium 3.4 L, Chloride 103, Carbon Dioxide 25, Anion Gap 13.4, BUN 14 D, Creatinine 1.10 H, Estimated Creat Clear 49, Estimated GFR 49 L , Est GFR ( Amer) 59, Glucose 97, Calcium 9.0, Total Bilirubin 0.7, AST 32, ALT 21, Alkaline Phosphatase 47, C-Reactive Protein 1.6, Total Protein 6.4, Albumin 3.8, Globulin 2.6, Albumin/Globulin Ratio 1.5, Lipase 990 H 01/31/24 06:35: WBC 7.3, RBC 4.13 L, Hgb 12.7, Hct 38.3, MCV 92.6, MCH 30.8, MCHC 33.3, RDW 13.9, Plt Count 237, MPV 8.8, Neut % (Auto) 60.5, Lymph % (Auto) 28.4, [place] % (Auto) 8.4, Eos % (Auto) 2.1, Baso % (Auto) 0.6, Neut # (Auto) 4.4, Lymph # (Auto) 2.1, [place] # (Auto) 0.6, Eos # (Auto) 0.2, Baso # (Auto) 0.0, Sodium 137, Potassium 3.4 L, Chloride 104, Carbon Dioxide 24, Anion Gap 12.4, BUN 9 D, Creatinine 1.00, Estimated Creat Clear 54, Estimated GFR 54 L, Est GFR ( Amer) 66, Glucose 94, Calcium 8.5, Magnesium 1.7, Total Bilirubin 0.8, AST 39 H, ALT 19, Alkaline Phosphatase 45, Total Protein 5.9 L, Albumin 3.4 L D, Globulin 2.5, Albumin/Globulin Ratio 1.4 I & O for Last 24 hours: Intake & Output 01/28/24 01/29/24 01/30/24 01/31/24 23:59 23:59 23:59 23:59 Intake Total 1010 / 1010 Output Total 0 / 0 0 / 0 Balance 0 / 450 1010 / 1010 Weight 68.039 kg 68.039 kg Constitutional Constitutional: no acute distress *Routine HEENT Exam Head: Present normocephalic Eye: Present EOMI and PERRL ENT: Present mucous membranes moist *Routine Neck Exam Neck: Present supple; Absent lymphadenopathy *Routine Respiratory Exam Respiratory: Present CTA bilaterally *Routine Cardiovascular Exam Cardiovascular: Present RRR *Routine Abdominal Exam Abdominal: Present soft and normoactive bowel sounds; Absent tenderness *Routine Extremities Exam Extremities: Absent cyanosis, clubbing or edema *Routine Skin Exam Skin: Present warm; Absent rash *Routine Neurological Exam Neurological: Present alert and oriented X3 Assessment and Plan *Assessment and plan (1) Diverticulitis: Status: Acute Category: Medical Code(s): K57.92 - Diverticulitis of intestine, part unspecified, without perforation or abscess without bleeding (2) Acute UTI: Status: Acute Category: Medical Code(s): N39.0 - Urinary tract infection, site not specified (3) General weakness: Status: Acute Category: Medical Code(s): R53.1 - Weakness Plan Patient is a 74-year-old female with past medical history of dementia who presents to the hospital due to change in mental status patient has been aggressive at home per family, patient has not been in her usual state of mental health. Family notes that she is also been delirious with worsening delirium just prior to arrival. That is what prompted them to bring her in. Patient al ert and oriented at this time. Assessment and plan Acute diverticulitis Urinary tract infection started IV Flagyl IV fluids Check blood cultures, urine culture Start on daily liquid diet, advance as tolerated As needed Zofran Acute delirium likely secondary to UTI in the setting of dementia Monitor Avoid benzodiazepines Resume home donepezil, memantine DVT prophylaxis-heparin plan to continue Abx at this time
[2024-01-31 16:00] VITALS: BP 150/73; PULSE 63; RESP 20; TEMP 36.5; O2SAT 96
[2024-01-31] MEDS: PRAVASTATIN 40MG TAB 40 MG PO (16:08)
[2024-01-31] MEDS: CITALOPRAM 20MG TABLET 20 MG PO (16:10)
[2024-01-31] MEDS: LORazepam 2MG/ML VIAL 0.5 MG IV (16:20)
--- NOTE | 2024-01-31 18:38 | PC.NURSE ---
Alert and oriented x4, ambulates around room independently, restarted home meds, family at bedside.
[2024-01-31 20:00] VITALS: BP 144/69; PULSE 67; RESP 18; TEMP 37.2; O2SAT 96
[2024-01-31] MEDS: DONEPEZIL 10MG TAB 10 MG PO (20:58)
[2024-01-31] MEDS: PANTOPRAZOLE 40MG VIAL 40 MG IV (20:58)
[2024-01-31] MEDS: SODIUM CHLORIDE 0.9% 10ML VIAL 10 ML IV (20:58)
[2024-01-31] MEDS: QUETIAPINE 25MG TABLET 25 MG PO (20:58)
[2024-02-01 04:00] VITALS: BP 157/80; PULSE 58; RESP 18; TEMP 36.7; O2SAT 94; BMI 28.1
[2024-02-01] MEDS: METRONIDAZ/SOD CHL 500 MG/100 ML PIGGYBACK 100 MG IV (04:25)
--- NOTE | 2024-02-01 04:53 | PC.NURSE ---
Patient has had a great shift. Has slept through all off it. Family has remained at bedside. Has not had any complaints
[2024-02-01 08:00] VITALS: BP 140/79; PULSE 67; RESP 20; TEMP 36.3; O2SAT 97
[2024-02-01] MEDS: ENOXAPARIN 40MG/0.4ML SYRINGE 40 MG SQ (09:44)
[2024-02-01] MEDS: AMLODIPINE PO (09:45)
[2024-02-01] MEDS: BENAZEPRIL PO (09:45)
[2024-02-01] MEDS: ESCITALOPRAM 10 MG 1 EACH PO (09:46)
[2024-02-01] MEDS: PRAVASTATIN 40 MG PO (09:47)
[2024-02-01] MEDS: MEMANTINE 14 MG 1 EACH PO (09:48)
[2024-02-01] MEDS: 0.9 % SODIUM CHLORIDE 1000ML 1,000 ML 50 ML IV (09:49)
--- NOTE | 2024-02-02 14:31 | CARE MANAGER ---
Called and spoke with patient's son in regards to recent discharge. He stated that patient is doing well and has started new medication. No concerns voiced at time of call.
--- NOTE | 2024-02-04 10:59 | EXP.DC.SUM ---
General Admission date:: 01/30/24 Discharge date: 02/01/24 HPI HPI HPI: Patient is a 74-year-old female with past medical history of dementia who presents to the hospital due to change in mental status patient has been aggressive at home per family, patient has not been in her usual state of mental health. No reports of fevers diarrhea constipation. discharged yesterday. came back today with worsening abdominal pain, and fluctuating mental status. Family notes that she is also been delirious with worsening delirium just prior to arrival. That is what prompted them to bring her in. Patient alert and oriented at this time. cooperative non aggressive. On further evaluation patient was noted to have acute diverticulitis and urinary tract infection, admitted for further evaluation. Hospital Course Hospital Course Hospital Course: Patient is a 74-year-old female with past medical history of dementia who presents to the hospital due to change in mental status patient has been aggressive at home per family, patient has not been in her usual state of mental health. Family notes that she is also been delirious with worsening delirium just prior to arrival. That is what prompted them to bring her in. Patient alert and oriented at this time. Acute diverticulitis -improved Urinary tract infection - improved Acute delirium - resolved patient was treated for UTI, delirium and Acute diverticlitis, patient symtoms resolved during the hospitalization, patient became alert awake and was able to hold meaningful conversations, patient wishes to be discharged on day of discharge, patient family at bedside agreed with the discharge plan. Patient was discharged on oral levofloxacin and flagyl, patient and family counseled on follow up appointmets. Patient was also prscribe short course of seroquel to help with delirium. total time spent - 37 mins Exam Data for Last 24 hours Vital signs and Labs for Last 24 Hours: Temp Pulse Resp BP Pulse Ox O2 Del Method 97.4 F L 67 20 140/79 97 Room Air 02/01/24 08:00 02/01/24 08:00 02/01/24 08:00 02/01/24 08:00 02/01/24 08:00 02/01/24 13:00 I & O for Last 24 hours: Intake & Output 02/01/24 02/02/24 02/03/24 02/04/24 23:59 23:59 23:59 23:59 Intake Total 360 / 360 Output Total 0 / 0 Balance 360 / 360 Weight 69.354 kg Constitutional Constitutional: no acute distress *Routine HEENT Exam Head: Present normocephalic Eye: Present EOMI and PERRL ENT: Present mucous membranes moist *Routine Neck Exam Neck: Present supple; Absent lymphadenopathy *Routine Respiratory Exam Respiratory: Present CTA bilaterally *Routine Cardiovascular Exam Cardiovascular: Present RRR *Routine Abdominal Exam Abdominal: Present soft and normoactive bowel sounds; Absent tenderness *Routine Extremities Exam Extremities: Absent cyanosis, clubbing or edema *Routine Skin Exam Skin: Present warm; Absent rash *Routine Neurological Exam Neurological: Present alert and oriented X3 DS: Diagnosis Discharge Diagnosis (1) Diverticulitis: Status: Acute Code(s): K57.92 - Diverticulitis of intestine, part unspecified, without perforation or abscess without bleeding (2) Acute UTI: Status: Acute Code(s): N39.0 - Urinary tract infection, site not specified (3) General weakness: Status: Acute Code(s): R53.1 - Weakness Meds Home Medications and Allergies Home Medications Medication Instructions Recorded Confirmed Type amlodipine 5 mg-benazepril 20 mg 1 cap PO DAILY 01/28/24 01/30/24 History capsule donepezil 10 mg tablet 10 mg PO HS 01/28/24 01/30/24 History escitalopram oxalate 10 mg tablet 10 mg PO DAILY 01/28/24 01/30/24 History memantine 14 mg capsule 14 mg PO DAILY 01/28/24 01/30/24 History sprinkle,extended release 24hr ondansetron 4 mg disintegrating 4 mg PO Q6HP PRN nausea and 01/28/24 01/30/24 History tablet vomiting pravastatin 40 mg tablet 40 mg PO DAILY 01/28/24 01/30/24 History levofloxacin 750 mg tablet 750 mg PO DAILY 10 days #10 tabs 02/01/24 01/30/24 Rx metronidazole 500 mg tablet 500 mg PO TID 10 days #30 tabs 02/01/24 01/30/24 Rx pantoprazole 40 mg tablet,delayed 40 mg PO HS 14 days #14 tabs 02/01/24 Rx release quetiapine 25 mg tablet 25 mg PO HS 14 days #14 tabs 02/01/24 Rx New Prescriptions to Start Prescriptions: pantoprazole Nabil,Layaan quetiapine Nabil,Irfan Allergies Allergy/AdvReac Type Severity Reaction Status Date / Time Latex, Natural Rubber Allergy Intermediate Rash Verified 01/28/24 15:14 Penicillins Allergy Verified 01/27/24 13:56 Sulfa (Sulfonamide Allergy Verified 01/27/24 13:56 Antibiotics) Discharge Plan Disposition Patient Disposition: Home, Self-Care Condition: Good Follow up Plan Follow up with: Celina Richmond APRN [Primary Care Provider] - 1 week (Please call to make your follow up appt. ) Prescriptions/Medication Reconciliation: New quetiapine 25 mg Tablet 25 mg PO HS 14 Days Qty: 14 0RF pantoprazole 40 mg Tablet,Delayed Release (Dr/Ec) 40 mg PO HS 14 Days Qty: 14 0RF Continued pravastatin 40 mg tablet 40 mg PO DAILY Patient Comments: TAKE 1 TABLET BY MOUTH DAILY donepezil 10 mg tablet 10 mg PO HS Patient Comments: TAKE 1 TABLET BY MOUTH DAILY AT BEDTIME amlodipine-benazepril 5-20 mg capsule 1 cap PO DAILY Patient Comments: TAKE 1 CAPSULE BY MOUTH ONCE DAILY escitalopram oxalate 10 mg tablet 10 mg PO DAILY Patient Comments: TAKE 1 TABLET BY MOUTH DAILY memantine 14 mg capsule,sprinkle,ER 24hr 14 mg PO DAILY Patient Comments: TAKE 1 CAPSULE BY MOUTH DAILY ondansetron 4 mg tablet,disintegrating 4 mg PO Q6HP PRN (Reason: nausea and vomiting) metronidazole 500 mg tablet 500 mg PO TID 10 Days Qty: 30 0RF levofloxacin 750 mg tablet 750 mg PO DAILY 10 Days Qty: 10 0RF Discontinued quetiapine 25 mg Tablet 25 mg PO HS 7 Days Qty: 7 0RF Problem Reconciliation Problems Reviewed?: Yes Patient Discharge Instructions ACTIVITY: Ambulate as tolerated DIET: continue same diet Patient Instructions: DI for Diverticulitis, DI for Urinary Tract Infection (UTI) Providers Primary Care Provider: Celina Richmond Admit Provider: Tonja Ferrer Attending Provider: Tonja Ferrer
[2024-02-04 11:14] LABS: Lyme B. burgdorferi PCR Blood Negative (Negative)
[2024-02-04 15:12] LABS: Lyme Ab CIA Negative (Negative)
== END 2024-02-01 13:43 | disposition home or self-care (01) ==
LOC: ER 20:17 → 2ND 20:51
PROVIDERS: Nurse Practitioner Family; Admitting Provider Internal Medicine; Emergency Provider Emergency Medicine; PCP Nurse Practitioner Family; Visit Provider Internal Medicine
DX: K57.32 Diverticulitis of large intestine without perforation or abscess without bleeding (principal); N39.0 Urinary tract infection, site not specified; F03.90 Unspecified dementia, unspecified severity, without behavioral disturbance, psychotic disturbance, mood disturbance, and anxiety
CPT/HCPCS: 70450; 74177; 80053; 81001; 82803; 83690; 83735; 85025; 85651; 86140; 86618; 87040; 87086; 87476; 93005; 99285; G0378; J2405; Q9967

== ENCOUNTER 2024-02-10 14:22 | Outpatient (CLI) | payer MEDICARE, SELFPAY ==
[2024-02-10 14:52] LABS: Basophils # 0.1 K/mm3 (0-0.2); Basophils % 0.8 % (0.1-2.0); Eosinophils # 0.1 K/mm3 (0.0-0.4); Eosinophils % 1.7 % (0.1-12.0); Hematocrit 39.3 % (37.0-47.0); Hemoglobin 12.9 g/dL (12.2-16.2); Lymphocytes # 2.2 K/mm3 (0.7-4.5); Lymphocytes % 32.3 % (10-50); Mean Corpuscular HGB Conc 32.9 g/dL (31.8-35.4); Mean Corpuscular Hemoglobin 31.2 pg (27.0-31.2); Mean Corpuscular Volume 94.7 fl (81-99); Mean Platelet Volume 8.9 fl (7.4-10.4); Monocytes # 0.5 K/mm3 (0.1-1.0); Neutrophils # 3.8 K/mm3 (1.8-7.8); Neutrophils % 57.1 % (37.0-80.0); Platelet Count 331 K/mm3 (142-424); Red Blood Count 4.15 M/mm3 (4.20-5.40); Red Cell Distribution Width 13.9 % (11.5-17.5); White Blood Count 6.7 K/mm3 (4.8-10.8)
[2024-02-10 16:52] LABS: Chloride 104 mmol/L (98-107); Sodium 138 mmol/L (136-145)
[2024-02-10 16:53] LABS: Potassium 3.6 mmoL/L (3.5-5.1)
[2024-02-10 16:55] LABS: Alanine Aminotransferase 22 U/L (12-78); Alkaline Phosphatase 38 U/L (38-126); Aspartate Amino Transferase 37 U/L (14-36); Bilirubin,Total 0.5 mg/dl (0.2-1.3); Blood Urea Nitrogen 12 mg/dl (7-17); Estimated Glomerular Filt Rate 54 ml/min (>60); GFR (African American) 66 ML/MIN (>60)
[2024-02-10 16:56] LABS: Albumin Level 3.5 g/dl (3.5-5.0); Albumin/Globulin Ratio 1.4 (1.1-1.8); Anion Gap 11.6 mEq/L (5-15); Calcium 8.9 mg/dl (8.4-10.2); Carbon Dioxide 26 mmol/L (22.0-30.0); Globulin 2.5 g/dL (1.3-3.2); Glucose 116 mg/dl (74-100)
== END 2024-02-10 23:59 | disposition home or self-care (01) ==
LOC: LAB.DROPOF 14:23
PROVIDERS: PCP Nurse Practitioner Family; Visit Provider Nurse Practitioner Family
DX: K57.92 Diverticulitis of intestine, part unspecified, without perforation or abscess without bleeding (principal); N39.0 Urinary tract infection, site not specified; R74.8 Abnormal levels of other serum enzymes
CPT/HCPCS: 80053; 85025; 87086

== ENCOUNTER 2024-03-05 12:19 | Outpatient (CLI) | payer MEDICARE, SELFPAY ==
[2024-03-05 13:03] LABS: Erythrocyte Sedimentation Rate 22 mm/hr (0-30)
[2024-03-05 13:33] LABS: C-Reactive Protein 1.9 mg/L (0-4)
[2024-03-05 13:59] LABS: Thyroid Stimulating Hormone 1.09 uIU/mL (0.465-4.68)
[2024-03-05 14:34] LABS: Vitamin B12 359 pg/mL (239-931)
[2024-03-05 14:37] LABS: Folate 8.67 ng/mL
[2024-03-06 10:35] LABS: Rapid Plasma Reagin Ab Titer Non Reactive titer (NonRea<1:1)
== END 2024-03-05 23:59 | disposition home or self-care (01) ==
LOC: LAB 12:21
PROVIDERS: PCP Nurse Practitioner; Visit Provider Specialist
DX: R41.3 Other amnesia (principal); Z79.899 Other long term (current) drug therapy
CPT/HCPCS: 36415; 82607; 82652; 82746; 84425; 84443; 85651; 86140; 86593

== ENCOUNTER 2024-03-17 09:58 | Outpatient (CLI) | payer MEDICARE, SELFPAY ==
[2024-03-17 11:03] LABS: Blood Urea Nitrogen 20 mg/dl (7-17); Estimated Glomerular Filt Rate 44 ml/min (>60); GFR (African American) 53 ML/MIN (>60)
== END 2024-03-17 23:59 | disposition home or self-care (01) ==
LOC: LAB 10:03
PROVIDERS: PCP Nurse Practitioner; Visit Provider Specialist
DX: G93.40 Encephalopathy, unspecified (principal); N19 Unspecified kidney failure
CPT/HCPCS: 36415; 82565; 84520

== ENCOUNTER 2024-03-24 11:44 | Day surgery (SDC) | payer MEDICARE, SELFPAY ==
[2024-03-23 11:15] VITALS: BMI 26.4
[2024-03-24] MEDS: LACTATED RINGERS 1000ML 1,000 ML 25 ML IV (11:54)
[2024-03-24 11:58] VITALS: BP 168/72; PULSE 66; RESP 18; TEMP 36.8; O2SAT 97
--- NOTE | 2024-03-24 12:10 | P.PNANES_ITS ---
[facility] Disclaimer: The information contained in this section may have been updated after the patient was seen, as this information can be updated by other users. Medical History Urinary tract infection Memory loss Fixation hardware in spine Fixation hardware in foot Hyperlipemia Hypertension Surgical History History of hysterectomy Family History Other No significant family history Social History Smoking Status: Never smoker alcohol intake: never substance use type: denies use current occupational status: retired Travel in the last 8 weeks: None [facility] Anesthesia Checklist Patient Identification Patient Identification: Arm Band and Verbal (Name & ) Structural Data Admitted From: Home Planned Operative Procedure/s: Colonoscopy Consent for Planned Operative Procedure(s) Verified: Yes Verified Documents: Surgical Consent and History and Physical NPO Status Verified Time NPO: 00:00 Additional verifications Anesthesia Reactions: No Airway Assessment Mallampati Score:: Class II C-Spine Mobility Assessed: Yes TMJ Mobility Assessed: Yes Dentition: Good Dentition Neurological Assessment Level of Consciousness: Awake Hx Seizures: No Numbness or tingling in extremities: No Anesthesia Plan Anesthesia Risk discussed: Yes Anesthesia Plan: Verified ASA Class: II Anesthesia Type: MAC
[2024-03-24 12:53] VITALS: O2SAT 98
[2024-03-24 13:18] VITALS: BP 103/50; PULSE 59; RESP 15; TEMP 36.8; O2SAT 95
--- NOTE | 2024-03-24 13:22 | P.PCN_ITS ---
Procedure: Date: 03/24/24 Patient Date of :: 1950 Procedure Performed:: Colonoscopy Indications:: The patient is a 74-year-old who presents for screening colonoscopy. The patient had diverticulitis in January. A CT scan of the abdomen and pelvis showed diverticulitis of the sigmoid colon Performing Provider:: Andrew Gusman MD Referring Provider:: Priyanka Randall APRN Sedation:: See RN record Procedure:: The gastroscope was gently passed through the incisoral orifice into the oral cavity and under direct visualization the esophagus was intubated. The endoscope was passed down the esophagus, through the stomach, and into the duodenum. Color, texture, mucosa, and anatomy of the esophagus, stomach, and duodenum were carefully examined with the scope. Findings:: The quality of the bowel preparation was good. There was a diminutive polyp in the cecum near the appendiceal orifice. The polyp was removed with a cold forceps. There was a diminutive polyp in the proximal ascending colon. The polyp was removed with a cold forceps. There was diverticulosis of the cecum and ascending colon, descending, and sigmoid colon. The remaining colon appea red normal. The sigmoid colon was noted to be somewhat angulated. Impression: Polyp of cecum and ascending colon Extensive diverticulosis Recommendations:: Await pathology result Higher fiber diet Repeat colonoscopy in 5 years Complications:: None Estimated blood obtained (mL): 0 Colonoscopy Component Colonoscopy Component Was a colonoscopy performed during today's procedure?: Yes Recommended follow up colonoscopy of at least 10 years?: Yes
[2024-03-24 13:28] VITALS: BP 121/76; PULSE 52; RESP 16; O2SAT 100
[2024-03-24 13:38] VITALS: BP 122/58; PULSE 51; RESP 18; O2SAT 99
[2024-03-24 13:48] VITALS: BP 125/75; PULSE 59; RESP 18; O2SAT 100
== END 2024-03-24 13:48 | disposition home or self-care (01) ==
PROVIDERS: PCP Nurse Practitioner; Visit Provider Internal Medicine
PROC: (CPT 45380; principal; 2024-03-24 12:00)
DX: Z12.11 Encounter for screening for malignant neoplasm of colon (principal); K57.32 Diverticulitis of large intestine without perforation or abscess without bleeding
CPT/HCPCS: 45380; 88305; J7120

== ENCOUNTER 2024-03-25 16:36 | Outpatient (CLI) | payer MEDICARE, SELFPAY ==
--- NOTE | 2024-03-25 16:37 | MR_ITS ---
FINAL REPORT CLINICAL HISTORY: encephalopathy, MEMORY LOSS FINDINGS: Multiplanar MR imaging of the brain was performed without and with contrast. There is age-appropriate atrophy. Mild chronic ischemic/gliotic changes are noted. There is no evidence of intracranial hemorrhage or mass. No abnormal extra-axial fluid collection is seen. The ventricular size is within normal limits. There is no evidence of shift of the midline structures. The posterior fossa and brainstem have an unremarkable appearance. No area of abnormal restricted diffusion is identified. No abnormal contrast enhancement is seen. Normal major vessel vascular flow voids are noted. Moderate mucosal thickening is noted in the left maxillary sinus. IMPRESSION: No acute intracranial abnormality identified. Mild chronic ischemic/gliotic changes. Authenticated and [facility]
[2024-03-25] MEDS: GADOTERIDOL INJ 20ML SYRINGE 13 ML IV (17:25)
[2024-03-25] MEDS: SODIUM CHLORIDE 0.9% 10ML SYR (RAD ONLY) 10 ML IV (17:25)
== END 2024-03-25 23:59 | disposition home or self-care (01) ==
LOC: RAD 16:37
PROVIDERS: PCP Nurse Practitioner; Visit Provider Specialist
DX: R41.3 Other amnesia (principal)
CPT/HCPCS: 70553; A9576

== ENCOUNTER 2024-04-07 10:36 | Outpatient (CLI) | payer MEDICARE, SELFPAY ==
[2024-04-07 10:50] VITALS: BP 148/64; PULSE 52; RESP 16; O2SAT 99
[2024-04-07] MEDS: 0.9 % SODIUM CHLORIDE 1000ML 2,000 ML 999 ML IV (11:00)
[2024-04-07 12:00] VITALS: BP 166/67; PULSE 59; RESP 18; O2SAT 97
[2024-04-07 13:05] VITALS: BP 145/78; PULSE 65; RESP 18; O2SAT 99
[2024-04-07 13:16] VITALS: BMI 28.1
[2024-04-07 13:30] LABS: Alanine Aminotransferase 20 U/L (12-78); Albumin Level 3.5 g/dl (3.5-5.0); Albumin/Globulin Ratio 1.3 (1.1-1.8); Alkaline Phosphatase 56 U/L (38-126); Anion Gap 6.9 mEq/L (5-15); Aspartate Amino Transferase 30 U/L (14-36); Bilirubin,Total 0.6 mg/dl (0.2-1.3); Blood Urea Nitrogen 21 mg/dl (7-17); Calcium 9.1 mg/dl (8.4-10.2); Carbon Dioxide 26 mmol/L (22.0-30.0); Chloride 108 mmol/L (98-107); Creatinine Clearance Estimated 53 mL/min (50-200); Estimated Glomerular Filt Rate 54 ml/min (>60); GFR (African American) 66 ML/MIN (>60); Globulin 2.6 g/dL (1.3-3.2); Glucose 139 mg/dl (74-100); Potassium 3.9 mmoL/L (3.5-5.1); Sodium 137 mmol/L (136-145); Total Protein,Serum 6.1 g/dl (6.3-8.2)
== END 2024-04-07 13:10 | disposition home or self-care (01) ==
LOC: INF 10:38
PROVIDERS: PCP Family Medicine; Visit Provider Nurse Practitioner
DX: E86.0 Dehydration (principal); N39.0 Urinary tract infection, site not specified; Z79.899 Other long term (current) drug therapy
CPT/HCPCS: 80053; 96360; 96361

== ENCOUNTER 2024-04-09 13:54 | Outpatient (CLI) | payer MEDICARE, SELFPAY ==
[2024-04-09 14:10] VITALS: BP 141/74; PULSE 76; RESP 18; O2SAT 98
[2024-04-09] MEDS: 0.9 % SODIUM CHLORIDE 1000ML 2,000 ML 999 ML IV (14:15)
[2024-04-09 16:21] VITALS: BP 195/82; PULSE 61; RESP 18; O2SAT 98
== END 2024-04-09 16:21 | disposition home or self-care (01) ==
LOC: INF 13:55
PROVIDERS: PCP Nurse Practitioner; Visit Provider Nurse Practitioner
DX: I10 Essential (primary) hypertension (principal)
CPT/HCPCS: J7030; 96360; 96361

== ENCOUNTER 2024-04-13 10:01 | Outpatient (CLI) | payer MEDICARE, SELFPAY ==
--- NOTE | 2024-04-13 10:09 | US_ITS ---
FINAL REPORT TECHNIQUE: Ultrasound images of the kidneys and bladder were obtained. CLINICAL HISTORY: BILATERAL/DEHYDRATION COMPARISON: None FINDINGS: The right kidney measures 9.3 cm in length. It is normal in echogenicity. There is no hydronephrosis. There is a hypoechoic focus measuring 2.3 x 1.9 cm in size compatible with a right renal cyst. The left kidney measures 8.9 cm in length. It is normal in echogenicity. There is no hydronephrosis. The urinary bladder was not visualized. IMPRESSION: No hydronephrosis. Right renal cyst as described. Reviewed, Interpreted and Dictated by Barry Reeves MD Transcribed by Lora Echavarria Authenticated and [facility]
== END 2024-04-13 23:59 | disposition home or self-care (01) ==
LOC: RAD 10:02
PROVIDERS: PCP Nurse Practitioner; Visit Provider Nurse Practitioner
DX: E86.0 Dehydration (principal)
CPT/HCPCS: 76770

== ENCOUNTER 2024-04-29 13:17 | Emergency (ER) | payer MEDICARE, SELFPAY ==
[2024-04-29] VITALS (11 sets, daily range): BP systolic 144–169; BP diastolic 64–94; PULSE 61–74; RESP 12–18; TEMP 37.2; O2SAT 96–99; BMI 28.1
--- NOTE | 2024-04-29 13:34 | PC.NURSE ---
Dr. Tidwell at BS for pt eval
--- NOTE | 2024-04-29 13:47 | XR_ITS ---
FINAL REPORT CLINICAL HISTORY: altered mental status FINDINGS: TWO-VIEW CHEST The heart size is normal. The mediastinum is normal. The lungs are clear. There is no pneumothorax. There are postoperative changes in the lower cervical spine. IMPRESSION: No acute cardiopulmonary process. Reviewed, Interpreted and Dictated by Puma Silverio III, MD Transcribed by Veronica Velazquez Authenticated and [facility]
--- NOTE | 2024-04-29 13:47 | CT_ITS ---
FINAL REPORT TECHNIQUE: Postcontrast axial images through the abdomen and pelvis were performed. This study was performed with techniques to keep radiation doses as low as reasonably achievable, (ALARA). Individualized dose reduction techniques using automated exposure control or adjustment of mA and/or kV according to the patient's size were employed. CLINICAL HISTORY: low abd pain, waxing/waning delirium COMPARISON: 01/30/2024 FINDINGS: Abdomen: Motion artifact is identified on many of the images. The lung bases are clear. The liver is normal in size and attenuation. The gallbladder is distended measuring up to 4.9 cm in diameter. Small gallstone is identified. There is no biliary ductal dilatation. The spleen is unremarkable. The adrenals are normal. There is mild pancreatic ductal dilatation in the uncinate process of the pancreas of uncertain significance, intraductal papillary mucinous neoplasm is not excluded. There is a 22 mm cyst in the posterior right kidney. Mild left renal cortical thinning is identified. The aorta is normal in caliber. No free fluid or adenopathy is identified. Pelvis: The appendix is fluid-filled and mildly distended measuring up to 7 mm without significant inflammation, early or mild appendicitis is not excluded. There is a moderate to large amount of retained stool throughout the colon, greatest distally. Patient is status post hysterectomy. There is a stable sclerotic focus in the left sacral ala measuring 12 mm, favor benign. The urinary bladder is unremarkable. No free fluid, free air, abscess or adenopathy is identified. IMPRESSION: Gallbladder distension with small gallstone, cholecystitis is not excluded. Consider nuclear medicine hepatobiliary scan. Mild papillary ductal dilatation in the uncinate process, intraductal papillary mucinous neoplasm is not excluded. ERCP could further evaluate. Fluid-filled appendix with mild distension, early or mild appendicitis is not excluded. Follow-up CT may be helpful. Reviewed, Interpreted and Dictated by Puma Silverio III, MD Transcribed by Veronica Velazquez Authenticated and [facility]
--- NOTE | 2024-04-29 13:48 | CT_ITS ---
FINAL REPORT CLINICAL HISTORY: altered mental status COMPARISON: 01/30/2024 FINDINGS: Axial images of the head were obtained without contrast. Coronal reformatted images were also obtained. This study was performed with techniques to keep radiation doses as low as reasonably achievable (ALARA). Individualized dose reduction techniques using automated exposure control or adjustment of mA and/or kV according to the patient''s size were employed. There is generalized age-appropriate atrophy. Periventricular low-attenuation areas are seen consistent with mild chronic ischemic changes. There is no evidence of intracranial hemorrhage or mass. There is no evidence of acute infarct. There is no evidence of shift of the midline structures. No skull abnormality is seen on the bone window images. There are postoperative changes in the anterior maxillary sinuses. IMPRESSION: Atrophy and mild periventricular chronic ischemic changes. No acute intracranial abnormality identified. Reviewed, Interpreted and Dictated by Puma Silverio III, MD Transcribed by Veronica Velazquez Authenticated and . [facility]
--- NOTE | 2024-04-29 13:50 | PC.NURSE ---
RT notified of VBG order
[2024-04-29] MEDS: LACTATED RINGERS 1000ML 1,000 ML 999 ML IV (13:52)
[2024-04-29] MEDS: ONDANSETRON 4MG/2ML VIAL 4 MG IV (13:52)
--- NOTE | 2024-04-29 13:52 | PC.NURSE ---
Contacted [facility] per Dr Tidwell to speak with Jessie about this pt.
--- NOTE | 2024-04-29 13:52 | [facility].EDGENADL ---
Discharge Plan Disposition Patient Disposition: Home, Self-Care Condition: Good Prescriptions Prescriptions: No Action bupropion HCl 100 mg tablet sustained-release 12 hr 100 mg PO DAILY Qty: 30 6RF donepezil 10 mg tablet 10 mg PO HS Patient Comments: TAKE 1 TABLET BY MOUTH DAILY AT BEDTIME amlodipine-benazepril 5-20 mg capsule 1 cap PO DAILY Patient Comments: TAKE 1 CAPSULE BY MOUTH ONCE DAILY memantine 14 mg capsule,sprinkle,ER 24hr 14 mg PO DAILY Patient Comments: TAKE 1 CAPSULE BY MOUTH DAILY ondansetron 4 mg tablet,disintegrating 4 mg PO Q6HP PRN (Reason: nausea and vomiting) psyllium Packet 1 packet PO DAILY Rx Instructions: mix into at least 8 oz of water or juice before administering Referrals Follow up/Referrals: Jazzy Randall APRN [Primary Care Provider] - See instructions Sonny Carbone MD [Staff Physician] - See instructions Activity Restrictions/Add. Instructions Additional Instructions/Restrictions: You were evaluated in the emergency department today. We feel your waxing and waning mental status is related to diagnosis of dementia by neurology. Please follow-up closely with them for further evaluation and management. Your CT scan showed that your appendix is slightly enlarged, which could indicate early appendicitis. You also have a gallstone with mild dilation of your gallbladder. You also have a slight abnormality your pancreas, which sometimes can end up being a mass/cancer. We recommend close outpatient follow-up for all of these things. Please follow-up very closely with general surgery tomorrow morning at 9 AM. Do not eat or drink anything after midnight tonight just in case you end up needing surgery. Return to the emergency department right away for new or worsening symptoms, such as significant worsening abdominal pain, high fevers, or intractable nausea and vomiting Please follow-up closely with gastroenterology as well for further evaluation of your pancreas. You may choose to call Dr. Adalberto Lou in [place] for follow up. [phone]. She is with [facility] the [facility]. Clinical Impressions Clinical Impression: Pancreatic abnormality, Dementia, Gallstone, Appendix disease, Weakness Instructions Patient Instructions: DI for Abdominal Pain-Adult, DI for Muscle Weakness, DI for Altered Mental Status Print Language Print Language: Thai Discharge ED Provider: Renetta Aguirre General Adult HPI <Josiah Tidwell MD - Last Filed: 04/29/24 15:33> General Chief complaint: Altered Mental Status Stated complaint: nausea, shakes, fever, abd pain, delirium Time Seen by Provider: 04/29/24 13:31 Mode of Arrival: Ambulatory Source of Information: Patient and Relative Limitations: Altered Mental Status Description of Symptoms (Recalled from ER Triage Doc. by RN): Pt ambulatory to ED with son who states pt has been more confused than usual. Son states pt has been complaining of worsening abd pain, dizziness, nausea, shakiness in the past couple of days. Son states pt has had UTI's on and off for the past 4 months, and has been on multiple antibiotics. Son reports pt had an MRI a couple of weeks ago, bc she is being worked up for alzheimers disease, which was negative. Son also reports pt has been dx with lyme disease and a renal cyst in the past few weeks. At this time pt is alert and oriented to self and place. Pt reports her abd is uncomfortable but is not hurting. History of Present Illness HPI narrative: 74-year-old female presents to the ER with her son who is concerned that the patient is more confused than usual. For the last few days patient has been complaining of worsening lower abdominal pain. She describes a churning sensation but she is not having diarrhea. She has had nausea. She is not having dysuria or hematuria. Son reports history of multiple recent urinary tract infections with multiple previous antibiotics including cephalexin, fosfomycin, Macrobid, Levaquin. Patient is supposed to be on Macrobid suppression daily. Patient's son also demonstrates concern that the patient had Lyme disease and received doxycycline. Son reports that patient has been having waxing and waning delirium, he states his takes care of the patient and today the patient did not recognize her. Currently the patient is fully oriented. Patient does take donepezil and memantine. Son is concerned that patient has experienced significant grief, depression, and memory loss since her approximately 6 months ago. Related Data Home Medications ?Medication ?Instructions ?Recorded ?Confirmed amlodipine 5 mg-benazepril 20 mg 1 cap PO DAILY 01/28/24 03/24/24 capsule donepezil 10 mg tablet 10 mg PO HS 01/28/24 03/24/24 memantine 14 mg capsule 14 mg PO DAILY 01/28/24 03/24/24 sprinkle,extended release 24hr ondansetron 4 mg disintegrating 4 mg PO Q6HP PRN nausea and 01/28/24 03/24/24 tablet vomiting psyllium 1 packet PO DAILY 03/23/24 03/24/24 Previous Rx's ?Medication ?Instructions ?Recorded bupropion HCl 100 mg tablet,12 hr 100 mg PO DAILY Depression #30 ea 03/04/24 sustained-release Allergies Allergy/AdvReac Type Severity Reaction Status Date / Time Latex, Natural Rubber Allergy Intermediate Rash Verified 03/24/24 11:56 Penicillins Allergy Verified 03/24/24 11:56 Sulfa (Sulfonamide Allergy Verified 03/24/24 11:56 Antibiotics) PFSH <Josiah Tidwell MD - Last Filed: 04/29/24 15:33> [facility] Disclaimer: The information contained in this section may have been updated after the patient was seen, as this information can be updated by other users. Medical History Urinary tract infection Memory loss Fixation hardware in spine Fixation hardware in foot Hyperlipemia Hypertension Surgical History History of hysterectomy Family History Other No significant family history Social History Smoking Status: Unknown if ever smoked alcohol intake: never substance use type: denies use current occupational status: retired Travel in the last 8 weeks: None <Josiah Tidwell MD - Last Filed: 04/29/24 15:33> ROS Obtained: Yes All systems reviewed & no additional complaints except as documented Positive ROS per HPI Physical Exam <Josiah Tidwell MD - Last Filed: 04/29/24 15:33> General General appearance: alert and in no apparent distress Head Head exam: atraumatic and normocephalic Eye Eye exam: Present PERRL and EOMI ENT ENT exam: Present mucous membranes moist Neck Neck exam: Present normal inspection and full ROM Chest Chest inspection: Present symmetric chest wall rise Respiratory Respiratory exam: Absent respiratory distress or stridor Cardiovascular Cardiovascular exam: Present regular rate and normal rhythm Abdominal Exam Abdominal exam: Present soft; Absent distention or tenderness Extremities Exam Extremities exam: Present full ROM Neurological Exam Neurological exam: Present alert and oriented X3; Absent motor sensory deficit Psychiatric Psychiatric exam: Present normal affect and normal mood Skin Skin exam: Present warm and dry Medical Decision Making <Josiah Tidwell MD - Last Filed: 04/29/24 15:33> Medical Records Medical records reviewed: Yes I reviewed the patient's medical records. MR Comment: Patient was admitted to our hospital for concerns of UTI in January but had negative urine cultures. Patient was evaluated by neurology in February for concerns of delirium. Documentation from Dr. Escalante does demonstrate concern for dementia as well as depression and memory symptoms complicated by grief. Patient is on memantine and donepezil. I had a long phone conversation with patient's primary care doctor who mentioned progressive dementia symptoms. Jessie and I reviewed patient's recent urine cultures. In February she had no growth, in March she had strep agalactiae and [place]. At that time patient was treated with fosfomycin. In April she had repeat urine culture growing strep agalactiae. Patient was already on Macrobid suppression so according to the culture results Jessie prescribed Keflex. Patient is supposed to still be taking Macrobid daily suppression. We also discussed the report of Lyme disease. She states patient was negative for all tests for Lyme disease however she still gave a 10-day course of doxycycline for empiric treatment given patient's diffuse arthralgias. She did mention concern for family misunderstanding and miscommunication of patient's clinical status and progression. [place] Inquiry Pt receiving controlled substance: No Vital Signs: 04/29/24 13:20 04/29/24 13:28 04/29/24 13:31 Temperature 99.0 F Temperature Source Oral Pulse Rate 71 67 Pulse Rate [Left Radial] 68 Respiratory Rate 18 Blood Pressure 163/90 H 144/84 H Blood Pressure [Right Arm] 163/90 H Blood Pressure Mean [Right Arm] 114 Blood Pressure Source Blood Pressure Source [Right Arm] Automatic Cuff Blood Pressure Position Blood Pressure Position [Right Arm] Sitting 02 Sat by Pulse Oximetry 98 97 97 Oxygen Delivery Method Room Air 04/29/24 14:03 04/29/24 14:45 04/29/24 15:00 Temperature Temperature Source Pulse Rate 61 68 72 Pulse Rate [Left Radial] Respiratory Rate 14 Blood Pressure 144/94 H 163/78 H 159/81 H Blood Pressure [Right Arm] Blood Pressure Mean [Right Arm] Blood Pressure Source Blood Pressure Source [Right Arm] Blood Pressure Position Blood Pressure Position [Right Arm] 02 Sat by Pulse Oximetry 97 97 99 Oxygen Delivery Method Room Air Room Air 04/29/24 15:08 04/29/24 15:30 04/29/24 16:00 Temperature Temperature Source Pulse Rate 69 62 61 Pulse Rate [Left Radial] Respiratory Rate 14 18 12 Blood Pressure 169/75 H 155/71 H 145/64 H Blood Pressure [Right Arm] Blood Pressure Mean [Right Arm] Blood Pressure Source Blood Pressure Source [Right Arm] Blood Pressure Position Blood Pressure Position [Right Arm] 02 Sat by Pulse Oximetry 98 99 98 Oxygen Delivery Method Room Air Room Air 04/29/24 16:30 04/29/24 17:23 Temperature 99.0 F Temperature Source Oral Pulse Rate 72 74 Pulse Rate [Left Radial] Respiratory Rate 17 17 Blood Pressure 148/70 H 148/70 H Blood Pressure [Right Arm] Blood Pressure Mean [Right Arm] Blood Pressure Source Automatic Cuff Blood Pressure Source [Right Arm] Blood Pressure Position Sitting Blood Pressure Position [Right Arm] 02 Sat by Pulse Oximetry 96 Oxygen Delivery Method Room Air Room Air Lab Data Lab Results 04/29/24 13:23: Urine Color Yellow, Urine Appearance Clear, Urine pH 7.0, Ur Specific [place] 1.015, Urine Protein Negative, Urine Glucose (UA) Negative, Urine Ketones Negative, Urine Blood 1+, Urine Nitrate Negative, Urine Bilirubin Negative, Urine Urobilinogen 0.2, Ur Leukocyte Esterase 1+ A, Urine RBC 20-50, Urine WBC 20-50, Ur Squamous Epith Cells 10-20, Urine Bacteria 1+, Urine Opiates Screen Negative, Urine Methadone Screen Negative, Ur Barbituates Screen Negative, Ur Phencyclidine Scrn Negative, Ur Amphetamines Screen Negative, U Benzodiazepines Scrn Negative, Urine Cocaine Screen Negative, U Marijuana (THC) Screen Negative 04/29/24 13:35: WBC 6.8, RBC 4.66, Hgb 14.5, Hct 44.5, MCV 95.6, MCH 31.2, MCHC 32.6, RDW 14.1, Plt Count 236, MPV 7.7, Neut % (Auto) 54.4, Lymph % (Auto) 36.3, [place] % (Auto) 7.3, Eos % (Auto) 1.3, Baso % (Auto) 0.7, Neut # (Auto) 3.7, Lymph # (Auto) 2.5, [place] # (Auto) 0.5, Eos # (Auto) 0.1, Baso # (Auto) 0.1, PT 11.1, INR 0.99, Sodium 138, Potassium 3.9, Chloride 106, Carbon Dioxide 26, Anion Gap 9.9, BUN 22 H, Creatinine 1.20 H, Estimated Creat Clear 45, Estimated GFR 44 L, Est GFR ( Amer) 53 L, Glucose 92, Lactate 1.1, Calcium 9.3, Magnesium 1.9, Total Bilirubin 0.6, AST 30, ALT 21, Alkaline Phosphatase 55, Total Protein 7.0, Albumin 4.2, Globulin 2.8, Albumin/Globulin Ratio 1.5, TSH 1.25, Plasma/Serum Alcohol < 10 04/29/24 13:47: VBG pH 7.45 H, VBG pCO2 34.3 L, VBG pO2 64.2 H, VBG HCO3 23.3, VBG Total CO2 24.4, VBG O2 Saturation 93.2 H, VBG Base Excess -0.7, VBG Lactic Acid 1.3 04/29/24 13:57: Urine Color Yellow, Urine Appearance Clear, Urine pH 6.5, Ur Specific [place] 1.010, Urine Protein Negative, Urine Glucose (UA) Negative, Urine Ketones Negative, Urine Blood 1+, Urine Nitrate Negative, Urine Bilirubin Negative, Urine Urobilinogen 0.2, Ur Leukocyte Esterase Negative, Urine RBC 10-20, Urine WBC 3-5, Ur Squamous Epith Cells 5-10, Urine Bacteria 1+ 04/29/24 13:35 04/29/24 13:35 Orders (Tests/Meds): ED MEDICATIONS Discontinued Medications Generic Name Dose Route Start Last Admin Trade Name Freq PRN Reason Stop Dose Admin Lactated Ringer's 1,000 mls @ 999 mls/hr 04/29/24 13:47 04/29/24 13:52 Lactated Ringer's 1000 Ml Bag IV 04/29/24 14:47 999 mls/hr .Q1H1M ONE Administration Iopamidol 75 ml 04/29/24 14:32 04/29/24 14:33 Iopamidol-370 (76%);100ml Bottle IV 04/29/24 14:33 75 ml ONCE ONE Administration Ondansetron HCl 4 mg 04/29/24 13:47 04/29/24 13:52 Ondansetron 4mg/2ml Vial IV 04/29/24 13:48 4 mg ONCE ONE Administration Sodium Chloride 10 ml 04/29/24 14:32 04/29/24 14:33 Sodium Chloride 0.9% 10ml Syr (Rad Only) IV 04/29/24 14:33 10 ml ONCE ONE Administration ORDERS Category Date Time Status CT abdomen pelvis w con Stat Cat Scan 04/29/24 13:[address] head/brain wo con Stat Cat Scan 04/29/24 13:48 Completed XR chest 2V Stat Exams 04/29/24 13:47 Completed Complete Blood Count Auto Diff Stat Lab 04/29/24 13:35 Completed Comprehensive Metabolic Panel Stat Lab 04/29/24 13:35 Completed Drug Screen,Urine Stat Lab 04/29/24 13:23 Completed Ethyl Alcohol Stat Lab 04/29/24 13:35 Completed Lactic Acid Stat Lab 04/29/24 13:35 Completed Magnesium Stat Lab 04/29/24 13:35 Completed Prothrombin Time INR Stat Lab 04/29/24 13:35 Completed Thyroid Stimulating Hormone Stat Lab 04/29/24 13:35 Completed UA [Urinalysis and Microscopic] Stat Lab 04/29/24 13:57 Completed Urinalysis and Microscopic Stat Lab 04/29/24 13:23 Completed Urine Culture Stat Micro 04/29/24 13:23 Received VBG [Venous Blood Gas] Stat RT 04/29/24 13:47 Completed Medical Decision Narrative: In summary, this 74-year-old female presents to the emergency department today with altered mental status, lower abdominal pain. On initial evaluation patient is hemodynamically stable, afebrile, no localizing neurodeficits, patient was oriented to self, location, year, disoriented to president. Patient has mild lower abdominal discomfort to palpation but no rebound or guarding, nonacute abdomen. Differential diagnosis includes but is not limited to UTI, diverticulosis, diverticulitis, colitis, appendicitis, viral syndrome, electrolyte abnormality, dehydration, progressive dementia, intracranial abnormality, hypoxia, hypercarbia. Based on these concerns, I ordered serum labs, CT imaging, and given concern for previous squamous cell contamination on urinalysis I ordered catheter urine sample. Patient received IV fluids, Zofran for treatment. I discussed the previous urine culture results from the primary care office with our pharmacist. After reviewing these bacteria, he believes these were likely contaminants from an contaminated catch. Labs personally reviewed demonstrate CBC normal, VBG with pH 7.45, no findings of hypercarbia, lactic 1.3, CMP with trace kidney dysfunction, similar to prior, nonactionable. Initial urinalysis was a clean-catch and very contaminated, given the concern for previous contamination and possible false positives on urinalysis, catheter sample was sent. UDS negative, EtOH negative. XR personally interpreted demonstrates no acute intrathoracic abnormality, see radiology read for final interpretation. CT head was personally interpreted and I do not appreciate acute intracranial abnormality. Radiology reads pending at the time of physician handoff. Patient handed off to Dr. Aguirre at physician shift change pending catheter urine sample results, CT imaging results. <Renetta Aguirre, DO - Last Filed: 04/29/24 17:46> Vital Signs: 04/29/24 13:20 04/29/24 13:28 04/29/24 13:31 Temperature 99.0 F Temperature Source Oral Pulse Rate 71 67 Pulse Rate [Left Radial] 68 Respiratory Rate 18 Blood Pressure 163/90 H 144/84 H Blood Pressure [Right Arm] 163/90 H Blood Pressure Mean [Right Arm] 114 Blood Pressure Source Blood Pressure Source [Right Arm] Automatic Cuff Blood Pressure Position Blood Pressure Position [Right Arm] Sitting 02 Sat by Pulse Oximetry 98 97 97 Oxygen Delivery Method Room Air 04/29/24 14:03 04/29/24 14:45 04/29/24 15:00 Temperature Temperature Source Pulse Rate 61 68 72 Pulse Rate [Left Radial] Respiratory Rate 14 Blood Pressure 144/94 H 163/78 H 159/81 H Blood Pressure [Right Arm] Blood Pressure Mean [Right Arm] Blood Pressure Source Blood Pressure Source [Right Arm] Blood Pressure Position Blood Pressure Position [Right Arm] 02 Sat by Pulse Oximetry 97 97 99 Oxygen Delivery Method Room Air Room Air 04/29/24 15:08 04/29/24 15:30 04/29/24 16:00 Temperature Temperature Source Pulse Rate 69 62 61 Pulse Rate [Left Radial] Respiratory Rate 14 18 12 Blood Pressure 169/75 H 155/71 H 145/64 H Blood Pressure [Right Arm] Blood Pressure Mean [Right Arm] Blood Pressure Source Blood Pressure Source [Right Arm] Blood Pressure Position Blood Pressure Position [Right Arm] 02 Sat by Pulse Oximetry 98 99 98 Oxygen Delivery Method Room Air Room Air 04/29/24 16:30 04/29/24 17:23 Temperature 99.0 F Temperature Source Oral Pulse Rate 72 74 Pulse Rate [Left Radial] Respiratory Rate 17 17 Blood Pressure 148/70 H 148/70 H Blood Pressure [Right Arm] Blood Pressure Mean [Right Arm] Blood Pressure Source Automatic Cuff Blood Pressure Source [Right Arm] Blood Pressure Position Sitting Blood Pressure Position [Right Arm] 02 Sat by Pulse Oximetry 96 Oxygen Delivery Method Room Air Room Air Lab Data Lab Results 04/29/24 13:23: Urine Color Yellow, Urine Appearance Clear, Urine pH 7.0, Ur Specific [place] 1.015, Urine Protein Negative, Urine Glucose (UA) Negative, Urine Ketones Negative, Urine Blood 1+, Urine Nitrate Negative, Urine Bilirubin Negative, Urine Urobilinogen 0.2, Ur Leukocyte Esterase 1+ A, Urine RBC 20-50, Urine WBC 20-50, Ur Squamous Epith Cells 10-20, Urine Bacteria 1+, Urine Opiates Screen Negative, Urine Methadone Screen Negative, Ur Barbituates Screen Negative, Ur Phencyclidine Scrn Negative, Ur Amphetamines Screen Negative, U Benzodiazepines Scrn Negative, Urine Cocaine Screen Negative, U Marijuana (THC) Screen Negative 04/29/24 13:35: WBC 6.8, RBC 4.66, Hgb 14.5, Hct 44.5, MCV 95.6, MCH 31.2, MCHC 32.6, RDW 14.1, Plt Count 236, MPV 7.7, Neut % (Auto) 54.4, Lymph % (Auto) 36.3, [place] % (Auto) 7.3, Eos % (Auto) 1.3, Baso % (Auto) 0.7, Neut # (Auto) 3.7, Lymph # (Auto) 2.5, [place] # (Auto) 0.5, Eos # (Auto) 0.1, Baso # (Auto) 0.1, PT 11.1, INR 0.99, Sodium 138, Potassium 3.9, Chloride 106, Carbon Dioxide 26, Anion Gap 9.9, BUN 22 H, Creatinine 1.20 H, Estimated Creat Clear 45, Estimated GFR 44 L, Est GFR ( Amer) 53 L, Glucose 92, Lactate 1.1, Calcium 9.3, Magnesium 1.9, Total Bilirubin 0.6, AST 30, ALT 21, Alkaline Phosphatase 55, Total Protein 7.0, Albumin 4.2, Globulin 2.8, Albumin/Globulin Ratio 1.5, TSH 1.25, Plasma/Serum Alcohol < 10 04/29/24 13:47: VBG pH 7.45 H, VBG pCO2 34.3 L, VBG pO2 64.2 H, VBG HCO3 23.3, VBG Total CO2 24.4, VBG O2 Saturation 93.2 H, VBG Base Excess -0.7, VBG Lactic Acid 1.3 04/29/24 13:57: Urine Color Yellow, Urine Appearance Clear, Urine pH 6.5, Ur Specific [place] 1.010, Urine Protein Negative, Urine Glucose (UA) Negative, Urine Ketones Negative, Urine Blood 1+, Urine Nitrate Negative, Urine Bilirubin Negative, Urine Urobilinogen 0.2, Ur Leukocyte Esterase Negative, Urine RBC 10-20, Urine WBC 3-5, Ur Squamous Epith Cells 5-10, Urine Bacteria 1+ Orders (Tests/Meds): ED MEDICATIONS Discontinued Medications Generic Name Dose Route Start Last Admin Trade Name Freq PRN Reason Stop Dose Admin Lactated Ringer's 1,000 mls @ 999 mls/hr 04/29/24 13:47 04/29/24 13:52 Lactated Ringer's 1000 Ml Bag IV 04/29/24 14:47 999 mls/hr .Q1H1M ONE Administration Iopamidol 75 ml 04/29/24 14:32 04/29/24 14:33 Iopamidol-370 (76%);100ml Bottle IV 04/29/24 14:33 75 ml ONCE ONE Administration Ondansetron HCl 4 mg 04/29/24 13:47 04/29/24 13:52 Ondansetron 4mg/2ml Vial IV 04/29/24 13:48 4 mg ONCE ONE Administration Sodium Chloride 10 ml 04/29/24 14:32 04/29/24 14:33 Sodium Chloride 0.9% 10ml Syr (Rad Only) IV 04/29/24 14:33 10 ml ONCE ONE Administration ORDERS Category Date Time Status CT abdomen pelvis w con Stat Cat Scan 04/29/24 13:[address] head/brain wo con Stat Cat Scan 04/29/24 13:48 Completed XR chest 2V Stat Exams 04/29/24 13:47 Completed Complete Blood Count Auto Diff Stat Lab 04/29/24 13:35 Completed Comprehensive Metabolic Panel Stat Lab 04/29/24 13:35 Completed Drug Screen,Urine Stat Lab 04/29/24 13:23 Completed Ethyl Alcohol Stat Lab 04/29/24 13:35 Completed Lactic Acid Stat Lab 04/29/24 13:35 Completed Magnesium Stat Lab 04/29/24 13:35 Completed Prothrombin Time INR Stat Lab 04/29/24 13:35 Completed Thyroid Stimulating Hormone Stat Lab 04/29/24 13:35 Completed UA [Urinalysis and Microscopic] Stat Lab 04/29/24 13:57 Completed Urinalysis and Microscopic Stat Lab 04/29/24 13:23 Completed Urine Culture Stat Micro 04/29/24 13:23 Received VBG [Venous Blood Gas] Stat RT 04/29/24 13:47 Completed Medical Decision Narrative: In summary, this 74-year-old female presents to the emergency department today with altered mental status, lower abdominal pain. On initial evaluation patient is hemodynamically stable, afebrile, no localizing neurodeficits, patient was oriented to self, location, year, disoriented to president. Patient has mild lower abdominal discomfort to palpation but no rebound or guarding, nonacute abdomen. Differential diagnosis includes but is not limited to UTI, diverticulosis, diverticulitis, colitis, appendicitis, viral syndrome, electrolyte abnormality, dehydration, progressive dementia, intracranial abnormality, hypoxia, hypercarbia. Based on these concerns, I ordered serum labs, CT imaging, and given concern for previous squamous cell contamination on urinalysis I ordered catheter urine sample. Patient received IV fluids, Zofran for treatment. I discussed the previous urine culture results from the primary care office with our pharmacist. After reviewing these bacteria, he believes these were likely contaminants from an contaminated catch. Labs personally reviewed demonstrate CBC normal, VBG with pH 7.45, no findings of hypercarbia, lactic 1.3, CMP with trace kidney dysfunction, similar to prior, nonactionable. Initial urinalysis was a clean-catch and very contaminated, given the concern for previous contamination and possible false positives on urinalysis, catheter sample was sent. UDS negative, EtOH negative. XR personally interpreted demonstrates no acute intrathoracic abnormality, see radiology read for final interpretation. CT head was personally interpreted and I do not appreciate acute intracranial abnormality. Radiology reads pending at the time of physician handoff. Patient handed off to Dr. Aguirre at physician shift change pending catheter urine sample results, CT imaging results. Timothy, DO: On my assessment of the patient, she is resting comfortably with no complaints or concerns at this time. She states she is feeling a lot better. Patient CT scan was concerning for gallstone with mild biliary dilatation concerning for possible cholecystitis, pancreatic dilatation concerning for possible cyst versus mass, and borderline dilated appendix concerning for possible early acute appendicitis. Patient may be has mild tenderness to palpation of the right lower quadrant with very very deep palpation, however exam is otherwise reassuring. Labs are reassuring with no leukocytosis or neutrophilic shift. Patient has no transaminitis, hyperbilirubinemia, or other concerns. I called and had an interactive discussion with Dr. Carbone with general surgery regarding the CT findings, and he recommended that based on the fact that she is feeling a lot better with benign exam on my assessment, has normal labs, and CT scan is technically right at the upper limits of normal for measurements of her appendix, he doubts that is truly appendicitis, but he would recommend very close monitoring of the patient. I offered the patient and family admission for ops versus discharge with close general surgery follow-up tomorrow. They would like to go home and see general surgery in clinic tomorrow. Advise that they should be n.p.o. after midnight and see him at 9 AM per his instructions. She was able to tolerate oral intake here in the emergency department without difficulty. She was discharged home with instructions for close follow-up with all of these abnormalities, including GI follow-up for pancreas abnormality. She was given strict return precautions. She has plan for follow-up tomorrow with Dr. Carbone at 9 AM. Patient was discharged after all questions were answered. Critical Care <Josiah Tidwell MD - Last Filed: 04/29/24 15:33> Critical Care Time Critical Care Time: No
[2024-04-29 13:54] LABS: Microscopic, Urine URINE MICROSCOPIC (MICROSCOPIC)
[2024-04-29 13:56] LABS: Lactate Venous 1.3 mmol/L (0.4-2.0); VBG Base Excess -0.7 mmol/L (-2.4-2.3); VBG HCO3 23.3 mmol/L (23-30); VBG Oxygen Saturation 93.2 % (50-70); VBG PCO2 34.3 mmol/L (35-51); VBG PH 7.45 mmol/L (7.31-7.41); VBG PO2 64.2 mmol/L (28-40); VBG Total CO2 24.4 mmol/L (23-27)
[2024-04-29 14:00] LABS: Basophils # 0.1 K/mm3 (0-0.2); Basophils % 0.7 % (0.1-2.0); Eosinophils # 0.1 K/mm3 (0.0-0.4); Eosinophils % 1.3 % (0.1-12.0); Hematocrit 44.5 % (37.0-47.0); Hemoglobin 14.5 g/dL (12.2-16.2); Lymphocytes # 2.5 K/mm3 (0.7-4.5); Lymphocytes % 36.3 % (10-50); Mean Corpuscular HGB Conc 32.6 g/dL (31.8-35.4); Mean Corpuscular Hemoglobin 31.2 pg (27.0-31.2); Mean Corpuscular Volume 95.6 fl (81-99); Mean Platelet Volume 7.7 fl (7.4-10.4); Monocytes # 0.5 K/mm3 (0.1-1.0); Monocytes % 7.3 % (1.7-9.3); Neutrophils # 3.7 K/mm3 (1.8-7.8); Neutrophils % 54.4 % (37.0-80.0); Platelet Count 236 K/mm3 (142-424); Red Blood Count 4.66 M/mm3 (4.20-5.40); Red Cell Distribution Width 14.1 % (11.5-17.5); White Blood Count 6.8 K/mm3 (4.8-10.8)
[2024-04-29 14:04] LABS: Appearance,Urine CLEAR (Clear); Bilirubin,Urine Negative (Negative); Blood, Urine 1+ (Negative); Color,Urine YELLOW (Yellow); Glucose,Urine (UA) Negative (Negative); Ketones,Urine Negative (Negative); Leukocyte Esterase,Urine 1+ (Negative); Nitrate,Urine Negative (Negative); Protein,Urine Negative (Negative); Specific Gravity, Urine 1.015 (1.005-1.030); Urobilinogen,Urine 0.2 EU/dl (0.2)
[2024-04-29 14:04] LABS: INR 0.99 (0.9-1.1); Prothrombin Time 11.1 seconds (10.1-12.5)
--- NOTE | 2024-04-29 14:05 | PC.NURSE ---
sterile UA sent to lab, pt placed in gown, pt belongings placed in bag, pt given warm blanket.
--- NOTE | 2024-04-29 14:06 | PC.NURSE ---
fs 82 upon arrival
[2024-04-29 14:09] LABS: Albumin Level 4.2 g/dl (3.5-5.0); Chloride 106 mmol/L (98-107)
[2024-04-29 14:10] LABS: Potassium 3.9 mmoL/L (3.5-5.1); Sodium 138 mmol/L (136-145)
[2024-04-29 14:12] LABS: Alanine Aminotransferase 21 U/L (12-78); Albumin/Globulin Ratio 1.5 (1.1-1.8); Anion Gap 9.9 mEq/L (5-15); Aspartate Amino Transferase 30 U/L (14-36); Blood Urea Nitrogen 22 mg/dl (7-17); Carbon Dioxide 26 mmol/L (22.0-30.0); Creatinine Clearance Estimated 45 mL/min (50-200); Estimated Glomerular Filt Rate 44 ml/min (>60); Ethyl Alcohol < 10 mg/dl (0-10); GFR (African American) 53 ML/MIN (>60); Globulin 2.8 g/dL (1.3-3.2); Lactic Acid 1.1 mmol/L (0.7-2.1)
[2024-04-29 14:13] LABS: Alkaline Phosphatase 55 U/L (38-126); Bilirubin,Total 0.6 mg/dl (0.2-1.3); Calcium 9.3 mg/dl (8.4-10.2); Glucose 92 mg/dl (74-100); Magnesium 1.9 mg/dl (1.6-2.3)
[2024-04-29 14:18] LABS: Benzodiazepines Screen,Urine Negative ng/ml (<200)
[2024-04-29 14:19] LABS: Amphetamine/Metha Screen,Urine Negative ng/ml (<1000)
[2024-04-29 14:20] LABS: Barbiturates Screen,Urine Negative ng/ml (<200); Methadone Screen,Urine Negative ng/ml (<300)
[2024-04-29 14:21] LABS: Cannabinoid Screen,Urine Negative ng/ml (<50); Cocaine Screen,Urine Negative ng/ml (<300)
[2024-04-29 14:22] LABS: Bacteria,Urine 1+ /lpf; Opiate Screen,Urine Negative ng/ml (<300); RBC,Urine 20-50 #/hpf (0-3); WBC,Urine 20-50 #/hpf (0-3)
[2024-04-29 14:23] LABS: Phencyclidine Screen,Urine Negative ng/ml (<25)
--- NOTE | 2024-04-29 14:24 | PC.NURSE ---
PT gone to RAD via stretcher
[2024-04-29] MEDS: SODIUM CHLORIDE 0.9% 10ML SYR (RAD ONLY) 10 ML IV (14:33)
[2024-04-29] MEDS: IOPAMIDOL-370 (76%);100ML BOTTLE 75 ML IV (14:33)
[2024-04-29 14:42] LABS: Appearance,Urine CLEAR (Clear); Bilirubin,Urine Negative (Negative); Blood, Urine 1+ (Negative); Color,Urine YELLOW (Yellow); Glucose,Urine (UA) Negative (Negative); Ketones,Urine Negative (Negative); Leukocyte Esterase,Urine Negative (Negative); Microscopic, Urine URINE MICROSCOPIC (MICROSCOPIC); Nitrate,Urine Negative (Negative); PH,Urine 6.5 (5.0-8.5); Protein,Urine Negative (Negative); Urobilinogen,Urine 0.2 EU/dl (0.2)
--- NOTE | 2024-04-29 14:42 | PC.NURSE ---
PT returned from RAD
--- NOTE | 2024-04-29 14:47 | PC.NURSE ---
rounded on pt at this time. pt voices no need. son at bedside.
[2024-04-29 14:50] LABS: Thyroid Stimulating Hormone 1.25 uIU/mL (0.465-4.68)
[2024-04-29 15:01] LABS: Bacteria,Urine 1+ /lpf
--- NOTE | 2024-04-29 15:05 | PC.NURSE ---
Pt ambulated to the bathroom at this time with standby assistance. pt tolerated well.
--- NOTE | 2024-04-29 15:43 | PC.NURSE ---
rounded on pt at this time. Pt voices no needs, son at bedside.
--- NOTE | 2024-04-29 15:56 | PC.NURSE ---
Pt ambulatory to bathroom with assistance
--- NOTE | 2024-04-29 16:12 | PC.NURSE ---
rounded on pt at this time, pt voices no needs. 2 bottles of water given to pts son
--- NOTE | 2024-04-29 16:32 | PC.NURSE ---
Dr. Raf knight.
--- NOTE | 2024-04-29 16:34 | PC.NURSE ---
MD Aguirre on phone with Dr Carbone
--- NOTE | 2024-04-29 17:11 | PC.NURSE ---
pt tolerated PO intake MD Aguirre notified.
--- NOTE | 2024-05-03 15:34 | PC.NURSE ---
Pt's son and reportedly [id number] called asking for urine culture results. Per JEM I was not able to release any results, I did offer to s/w the pt, however pt is having AMS issues and was not able to discuss her results. He reports he should be on her list of approved contacts. I am only able to see 2 contacts of Fabi and Joselin. Eleno Carbajal stated Fabi is my . I asked if he has access to the pt's [facility] portal, he said I do, but it won't do me any good if she need antibiotics . I did inform him that the results have been completed a provider has reviewed results and if there was no new medication that typically means her culture did not grow anything or they don't need to change the antibiotic. Mr Carbajal states, Well they didn't prescribe her an antibiotic and she is doubled over in pain and can't get into see Urology for a month . With his mother in pain, I did encourage him to seek help or treatment for her with PCP or ER. States, I'm in [place] right now and getting ready to come take her to the ER .
== END 2024-04-29 17:24 | disposition home or self-care (01) ==
PROVIDERS: Emergency Medicine; Emergency Provider Emergency Medicine; PCP Nurse Practitioner
DX: K80.20 Calculus of gallbladder without cholecystitis without obstruction (principal); R10.819 Abdominal tenderness, unspecified site; K86.89 Other specified diseases of pancreas; R53.1 Weakness; F03.90 Unspecified dementia, unspecified severity, without behavioral disturbance, psychotic disturbance, mood disturbance, and anxiety; B96.89 Other specified bacterial agents as the cause of diseases classified elsewhere; R11.0 Nausea; I10 Essential (primary) hypertension; E78.5 Hyperlipidemia, unspecified
CPT/HCPCS: 70450; 71046; 74177; 80050; 80053; 80307; 80320; 81001; 82803; 83605; 83735; 84443; 85025; 85610; 87086; 96361; 96374; 99285; G0480; J2405; J7120; Q9967

== ENCOUNTER 2024-04-30 08:55 | Outpatient (CLI) | payer MEDICARE, SELFPAY ==
[2024-04-30 09:11] LABS: Basophils % 0.7 % (0.1-2.0); Eosinophils # 0.1 K/mm3 (0.0-0.4); Eosinophils % 1.6 % (0.1-12.0); Hematocrit 44.5 % (37.0-47.0); Hemoglobin 14.3 g/dL (12.2-16.2); Lymphocytes # 2.2 K/mm3 (0.7-4.5); Lymphocytes % 38.8 % (10-50); Mean Corpuscular HGB Conc 32.2 g/dL (31.8-35.4); Mean Corpuscular Hemoglobin 31.1 pg (27.0-31.2); Mean Corpuscular Volume 96.6 fl (81-99); Mean Platelet Volume 7.7 fl (7.4-10.4); Monocytes # 0.5 K/mm3 (0.1-1.0); Monocytes % 7.9 % (1.7-9.3); Neutrophils # 2.9 K/mm3 (1.8-7.8); Platelet Count 243 K/mm3 (142-424); Red Cell Distribution Width 14.4 % (11.5-17.5); White Blood Count 5.7 K/mm3 (4.8-10.8)
[2024-04-30 09:17] LABS: Albumin Level 4.3 g/dl (3.5-5.0); Chloride 106 mmol/L (98-107); Potassium 4.2 mmoL/L (3.5-5.1); Sodium 139 mmol/L (136-145)
[2024-04-30 09:19] LABS: Alanine Aminotransferase 24 U/L (12-78); Anion Gap 9.2 mEq/L (5-15); Aspartate Amino Transferase 31 U/L (14-36); Blood Urea Nitrogen 22 mg/dl (7-17); Carbon Dioxide 28 mmol/L (22.0-30.0); Estimated Glomerular Filt Rate 37 ml/min (>60); GFR (African American) 45 ML/MIN (>60)
[2024-04-30 09:20] LABS: Albumin/Globulin Ratio 1.6 (1.1-1.8); Alkaline Phosphatase 57 U/L (38-126); Bilirubin,Total 0.9 mg/dl (0.2-1.3); Calcium 9.5 mg/dl (8.4-10.2); Globulin 2.7 g/dL (1.3-3.2); Glucose 94 mg/dl (74-100)
--- NOTE | 2024-04-30 10:09 | CT_ITS ---
FINAL REPORT TECHNIQUE: After the administration of oral and intravenous contrast, axial images were obtained through the abdomen and pelvis by computed tomography. The study was performed with techniques to keep radiation dose as low as reasonably achievable, (ALARA). Individual dose reduction techniques using automated exposure control or adjustment of mA and/or kV according to the patient's size were employed. CLINICAL HISTORY: Left lower quad pain COMPARISON: 04/29/2024 FINDINGS: Abdomen: The lung bases are clear. The liver is normal in size and attenuation. The gallbladder is distended, stable from prior. The spleen is unremarkable. There is stable mild dilatation of the uncinate process of uncertain etiology, IPMN is not excluded. The pancreas is unremarkable. There is left renal cortical thinning. Again identified is a right renal cyst measuring 21 mm. Moderate vascular calcification is identified. The aorta is normal in caliber. There is no free fluid or adenopathy. Pelvis: There is descending and sigmoid diverticulosis without evidence of diverticulitis. Patient is status post hysterectomy. The appendix is mildly enlarged and fluid-filled measuring 7 mm without significant inflammation. Findings are stable since prior. There is no convincing appendicitis. The urinary bladder is unremarkable. There is no free fluid or adenopathy. Stable sclerotic lesion in the seen in the left sacral ala. IMPRESSION: Stable exam. Reviewed, Interpreted and Dictated by Puma Silverio III, MD Transcribed by Veronica Velazquez Authenticated and [facility]
[2024-04-30] MEDS: DIATRIZOATE MEG 66% & DIATRIZOATE NA 10% 30ML UDC 30 ML PO (12:39)
[2024-04-30] MEDS: SODIUM CHLORIDE 0.9% 10ML SYR (RAD ONLY) 10 ML IV (12:39)
[2024-04-30] MEDS: IOPAMIDOL-370 (76%);100ML BOTTLE 75 ML IV (12:39)
== END 2024-04-30 23:59 | disposition home or self-care (01) ==
PROVIDERS: PCP Nurse Practitioner; Visit Provider Surgery
DX: R93.5 Abnormal findings on diagnostic imaging of other abdominal regions, including retroperitoneum (principal); K80.20 Calculus of gallbladder without cholecystitis without obstruction; K38.9 Disease of appendix, unspecified; R10.814 Left lower quadrant abdominal tenderness
CPT/HCPCS: 36415; 74177; 80053; 85025; Q9963; Q9967

== ENCOUNTER 2024-05-10 15:30 | Outpatient (CLI) | payer MEDICARE, SELFPAY ==
[2024-05-10 15:19] LABS: Microscopic, Urine URINE MICROSCOPIC (MICROSCOPIC)
[2024-05-10 16:57] LABS: Appearance,Urine CLEAR (Clear); Bilirubin,Urine Negative (Negative); Blood, Urine 1+ (Negative); Color,Urine YELLOW (Yellow); Glucose,Urine (UA) Negative (Negative); Ketones,Urine Negative (Negative); Leukocyte Esterase,Urine Negative (Negative); Nitrate,Urine Negative (Negative); Protein,Urine Negative (Negative); Urobilinogen,Urine 0.2 EU/dl (0.2)
[2024-05-10 20:23] LABS: Squamous Epithelial Cell,Urine Occasional #/hpf (0-5)
== END 2024-05-10 23:59 | disposition home or self-care (01) ==
LOC: LAB.DROPOF 05-11 09:51
PROVIDERS: PCP Urology; Visit Provider Urology
DX: N39.0 Urinary tract infection, site not specified (principal); N32.81 Overactive bladder
CPT/HCPCS: 81001; 87086

== ENCOUNTER 2024-06-08 11:54 | Observation (INO) | payer MEDICARE, SELFPAY ==
[2024-06-08] VITALS (11 sets, daily range): BP systolic 117–160; BP diastolic 56–76; PULSE 55–80; RESP 16–18; TEMP 36.7; O2SAT 94–98; BMI 21.6; BMI 23.7
--- NOTE | 2024-06-08 12:06 | CT_ITS ---
FINAL REPORT TECHNIQUE: Axial images were performed through the brain. This study was performed with techniques to keep radiation doses as low as reasonably achievable, (ALARA). Individualized dose reduction techniques using automated exposure control or adjustment of mA and/or kV according to the patient's size were employed. CLINICAL HISTORY: AMS COMPARISON: 05/03/2024 FINDINGS: Mild atrophy and chronic ischemic white matter changes are noted. There is a small area of encephalomalacia in the medial right temporal lobe, and a dilated perivascular space in the right basal ganglia. No cortical edema is present. There is no mass or hemorrhage. Ventricles are normal. Bone windows show no skull fracture or obvious obstructive lesion. IMPRESSION: 1. No acute intracranial abnormality or obvious mass. 2. Atrophy and chronic ischemic white matter changes as above. Reviewed, Interpreted and Dictated by Rylan Dias MD Transcribed by Lora Echavarria Authenticated and [facility]
--- NOTE | 2024-06-08 12:06 | XR_ITS ---
FINAL REPORT CLINICAL HISTORY: dyspnea COMPARISON: 04/29/2024 FINDINGS: The lungs are hypoinflated. There are mild increased markings in the bilateral lung bases, probably atelectasis. There is no evidence of effusion or pneumothorax. Mediastinum is unremarkable. Heart size is normal. IMPRESSION: Probable bibasilar atelectasis. Reviewed, Interpreted and Dictated by Rylan Dias MD Transcribed by Veronica Velazquez Authenticated and [facility]
--- NOTE | 2024-06-08 12:08 | HMH.EDGENADL ---
Discharge Plan Disposition Patient Disposition: Admitted Chief Complaint: Altered Mental Status Prescriptions Prescriptions: No Action escitalopram oxalate 10 mg tablet PO quetiapine 25 mg tablet 25 mg PO .PRN Patient Comments: TAKE 1 TABLET BY MOUTH DAILY AT BEDTIME pravastatin 40 mg tablet 40 mg PO DAILY estradiol 0.01 % (0.1 mg/gram) cream See Rx Instructions vaginal .COMPLEX Qty: 42.5 2RF Rx Instructions: Using finger technique daily for two weeks and then twice weekly vaginally; bupropion HCl 100 mg tablet sustained-release 12 hr 100 mg PO DAILY Qty: 30 6RF donepezil 10 mg tablet 10 mg PO HS Patient Comments: TAKE 1 TABLET BY MOUTH DAILY AT BEDTIME amlodipine-benazepril 5-20 mg capsule 1 cap PO DAILY Patient Comments: TAKE 1 CAPSULE BY MOUTH ONCE DAILY memantine 14 mg capsule,sprinkle,ER 24hr 14 mg PO DAILY Patient Comments: TAKE 1 CAPSULE BY MOUTH DAILY ondansetron 4 mg tablet,disintegrating 4 mg PO Q6HP PRN (Reason: nausea and vomiting) psyllium Packet 1 packet PO DAILY Rx Instructions: mix into at least 8 oz of water or juice before administering Referrals Follow up/Referrals: Jessie Randall APRN [Primary Care Provider] - See instructions Clinical Impressions Clinical Impression: Acute encephalopathy Instructions Patient Instructions: DI for Altered Mental Status Print Language Print Language: Marshallese Discharge ED Provider: Opal Portillo General Adult HPI General Chief complaint: Altered Mental Status Stated complaint: slurred speach, blood pressure high Time Seen by Provider: 06/08/24 11:58 History of Present Illness HPI narrative: 74-year-old female brought in today for acute encephalopathy by her daughter. She has baseline dementia but is normally awake alert oriented answering questions and has been in her normal state of health up until yesterday evening. At which point she began having some hallucinations and being manic. Her daughter states that for instance she felt as though she was running through a [employer] chasing after blue people. Additionally she flooded the kitchen and was having a hard time knowing where the water was coming from and it was originating from the faucet which was on. Daughter states that she has had numerous urinary tract infection in the past with similar presentations. No injuries that she is aware of. She has had a mild cough but recently tested negative for COVID and flu. Not on any anticoagulation. Only other pertinent medical history as she recently had a hospitalization for pancreatitis there was concern for choledocholithiasis from historical standpoint but she has not had any abdominal pain and does not have any now. History is limited from the patient however given her acute encephalopathy. Related Data Home Medications ?Medication ?Instructions ?Recorded ?Confirmed amlodipine 5 mg-benazepril 20 mg 1 cap PO DAILY 01/28/24 05/10/24 capsule donepezil 10 mg tablet 10 mg PO HS 01/28/24 05/10/24 memantine 14 mg capsule 14 mg PO DAILY 01/28/24 05/10/24 sprinkle,extended release 24hr ondansetron 4 mg disintegrating 4 mg PO Q6HP PRN nausea and 01/28/24 05/10/24 tablet vomiting psyllium 1 packet PO DAILY 03/23/24 05/10/24 escitalopram oxalate 10 mg tablet mg PO 05/10/24 05/10/24 pravastatin 40 mg tablet 40 mg PO DAILY 05/10/24 05/10/24 quetiapine 25 mg tablet 25 mg PO .PRN 05/10/24 05/10/24 Previous Rx's ?Medication ?Instructions ?Recorded bupropion HCl 100 mg tablet,12 hr 100 mg PO DAILY Depression #30 ea 03/04/24 sustained-release estradiol 0.01% (0.1 mg/gram) See Rx Instructions vaginal 05/10/24 vaginal cream .COMPLEX #42.5 grams Allergies Allergy/AdvReac Type Severity Reaction Status Date / Time Latex, Natural Rubber Allergy Intermediate Rash Verified 05/10/24 09:57 Penicillins Allergy Verified 05/10/24 09:57 Sulfa (Sulfonamide Allergy Verified 05/10/24 09:57 Antibiotics) [facility] Disclaimer: The information contained in this section may have been updated after the patient was seen, as this information can be updated by other users. Medical History (Updated 06/08/24 @ 12:08 by Opal Portillo MD) Urinary tract infection Memory loss Fixation hardware in spine Fixation hardware in foot Hyperlipemia Hypertension Surgical History History of hysterectomy Family History Other No significant family history Social History Smoking Status: Never smoker alcohol intake: never substance use type: denies use current occupational status: retired Travel in the last 8 weeks: None ROS Obtained: Yes All systems reviewed & no additional complaints except as documented Physical Exam General General appearance: alert Respiratory Respiratory exam: Present normal lung sounds bilaterally Cardiovascular Cardiovascular exam: Present regular rate Abdominal Exam Abdominal exam: Present soft; Absent distention or tenderness Neurological Exam Neurological exam: Present other (GCS of 13 but nonfocal able to move all extremities eyes closed and confused) Medical Decision Making Medical Records Screening: Per USPSTF and CDC recommendations, given the prevalence of disease in our region, it is our hospital?s policy to screen for HIV and viral Hepatitis for all patients aged 18 and over and those with ongoing risk factors. [place] Inquiry Pt receiving controlled substance: No Vital Signs: 06/08/24 11:56 06/08/24 12:01 06/08/24 12:02 Temperature 98.0 F Temperature Source Oral Pulse Rate 71 74 Pulse Rate [Left Radial] 77 Respiratory Rate 16 Blood Pressure 160/76 H 123/71 Blood Pressure [Right Arm] 160/76 H Blood Pressure Mean [Right Arm] 104 02 Sat by Pulse Oximetry 95 95 94 L Oxygen Delivery Method Room Air Room Air Room Air 06/08/24 12:10 06/08/24 13:30 06/08/24 14:00 Temperature Temperature Source Pulse Rate 80 57 L 56 L Pulse Rate [Left Radial] Respiratory Rate Blood Pressure 117/68 117/56 L 130/61 Blood Pressure [Right Arm] Blood Pressure Mean [Right Arm] 02 Sat by Pulse Oximetry 95 94 L 98 Oxygen Delivery Method Room Air Lab Data Lab results reviewed: Yes I reviewed the patient's lab results. Lab Results 06/08/24 12:06: VBG pH 7.40, VBG pCO2 40.6, VBG pO2 74.9 H, VBG HCO3 24.7, VBG Total CO2 25.9, VBG O2 Saturation 94.4 H, VBG Base Excess -0.1, VBG Lactic Acid 1.2 06/08/24 12:08: WBC 5.7, RBC 4.06 L, Hgb 13.2, Hct 39.4, MCV 97.0, MCH 32.4 H, MCHC 33.4, RDW 13.5, Plt Count 212, MPV 7.2 L, Neut % (Auto) 57.6, Lymph % (Auto) 31.9, Ward % (Auto) 8.5, Eos % (Auto) 1.5, Baso % (Auto) 0.6, Neut # (Auto) 3.3, Lymph # (Auto) 1.8, Ward # (Auto) 0.5, Eos # (Auto) 0.1, Baso # (Auto) 0.0, Sodium 137, Potassium 3.7, Chloride 107, Carbon Dioxide 27, Anion Gap 6.7, BUN 16, Creatinine 1.10 H, Estimated Creat Clear 42, Estimated GFR 49 L, Est GFR ( Amer) 59, Glucose 107 H, Calcium 9.5, Total Bilirubin 0.6, AST 39 H, ALT 33, Alkaline Phosphatase 62, Troponin I < 0.01, Total Protein 6.8, Albumin 4.1, HIV 1&2 Antibody Rapid Nonreactive 06/08/24 12:10: Urine Color Yellow, Urine Appearance Clear, Urine pH 6.0, Ur Specific [place] 1.015, Urine Protein Negative, Urine Glucose (UA) Negative, Urine Ketones Negative, Urine Blood 1+ A, Urine Nitrate Negative, Urine Bilirubin Negative, Urine Urobilinogen 0.2, Ur Leukocyte Esterase Negative, Urine RBC Occasional, Urine WBC None, Ur Squamous Epith Cells Occasional, Urine Bacteria Trace 06/08/24 12:41: SARS-CoV-2 (PCR) Not detected, Influenza A Untype (PCR) Not detected, Influenza Type B (PCR) Not detected 06/08/24 12:08 06/08/24 12:08 Orders (Tests/Meds): ED MEDICATIONS Generic Name Dose Route Start Last Admin Trade Name Freq PRN Reason Stop Dose Admin Sodium Chloride 10 ml 06/08/24 12:19 Sodium Chloride 0.9% 10ml Flush Syringe IV 07/08/24 12:18 NEEDED PRN Maintain IV Site Discontinued Medications Generic Name Dose Route Start Last Admin Trade Name Freq PRN Reason Stop Dose Admin Lactated Ringer's 500 mls @ 999 mls/hr 06/08/24 12:15 06/08/24 12:27 Lactated Ringer's 1000 Ml Bag IV 06/08/24 12:45 999 mls/hr .Q31M [place] Administration ORDERS Category Date Time Status CT chest wo con Stat Cat Scan 06/08/24 13:[address] head/brain wo con Stat Cat Scan 06/08/24 12:06 Completed CXR --portable [XR chest portable] Stat Exams 06/08/24 12:06 Completed CBC w/Auto Diff [Complete Blood Count Auto Diff] Stat Lab 06/08/24 12:08 Completed CMP [Comprehensive Metabolic Panel] Stat Lab 06/08/24 12:08 Results HIV (1&2) Antibody Rapid Stat Lab 06/08/24 12:08 Completed Hep C Ab with Reflex to RNA Stat Lab 06/08/24 12:08 Received Lactate Venous Stat Lab 06/08/24 12:39 Ordered Rapid PCR Covid and Flu A/B Stat Lab 06/08/24 12:41 Completed Trop I [Troponin I] Stat Lab 06/08/24 12:08 Results Troponin I Q3H Lab 06/08/24 15:15 Ordered Troponin I Q3H Lab 06/08/24 18:15 Ordered UA [Urinalysis and Microscopic] Stat Lab 06/08/24 12:10 Completed Blood Culture Stat Micro 06/08/24 12:30 Received Venous Blood Gas Stat RT 06/08/24 12:06 Completed Medical Decision Narrative: 74-year-old with above history and physical with acute encephalopathy differential includes infection metabolic abnormalities trauma malignancy etc. Will get a noncontrasted CT scan to further evaluate as well as basic workup including metabolic profile and urinalysis COVID flu and chest x-ray. I suspect this is most likely a urinary tract infection IV fluids will be administered. She is not febrile or tachycardic but sepsis and bacteremia remain on differential as well. Reassessment 233 patient still having somnolent respirations and is inappropriately altered at the moment. Labs unremarkable from an acute standpoint no evidence of urinary tract infections chest x-ray performed which I personally interpreted shows atelectasis versus pneumonia CT scan performed to person interpreted shows small vessel white matter ischemia she likely has vascular dementia causing her decline and after discussing further with her daughter she has been declining rapidly since October of this year. She had some what sounds like sundowning last night and she was given lorazepam and quetiapine on top of that which may be the cause of her ongoing somnolence. Possible this is polypharmacy at the moment. She has no signs or symptoms of sepsis and I suspect meningitis or encephalitis is unlikely but still in the differential but will hold off on lumbar puncture at the moment. Overall no definitive answer for what is causing her acute encephalopathy right now she will need to be admitted for further evaluation and management. CT of the chest was performed as well for further evaluation to differentiate atelectasis versus pneumonia no definitive parenchymal disease was seen on my interpretation and holding off on antibiotics at the moment. Daughter is also okay with placement if no definitive diagnosis or return to normalcy is a possibility. I spoke with Dr. Sharif who agreed to accept and admit this patient for further evaluation and management. Critical Care Critical Care Time Critical Care Time: Yes Attestation: On 06/08/24, the high probability of a clinically significant, sudden or life threatening deterioration of the following system(s) required my full and direct attention, intervention and personal management. The time I documented below is in addition to time spent performing reported procedures but includes the following listed in this critical care notation. Total Time Total Critical Care Time: 35
[2024-06-08 12:15] LABS: Microscopic, Urine URINE MICROSCOPIC (MICROSCOPIC)
[2024-06-08 12:17] LABS: Lactate Venous 1.2 mmol/L (0.4-2.0); VBG Base Excess -0.1 mmol/L (-2.4-2.3); VBG HCO3 24.7 mmol/L (23-30); VBG Oxygen Saturation 94.4 % (50-70); VBG PCO2 40.6 mmol/L (35-51); VBG PO2 74.9 mmol/L (28-40); VBG Total CO2 25.9 mmol/L (23-27)
[2024-06-08 12:17] LABS: Appearance,Urine CLEAR (Clear); Bilirubin,Urine Negative (Negative); Blood, Urine 1+ (Negative); Color,Urine YELLOW (Yellow); Glucose,Urine (UA) Negative (Negative); Ketones,Urine Negative (Negative); Leukocyte Esterase,Urine Negative (Negative); Nitrate,Urine Negative (Negative); Protein,Urine Negative (Negative); Specific Gravity, Urine 1.015 (1.005-1.030); Urobilinogen,Urine 0.2 EU/dl (0.2)
[2024-06-08 12:19] LABS: Basophils % 0.6 % (0.1-2.0); Eosinophils # 0.1 K/mm3 (0.0-0.4); Eosinophils % 1.5 % (0.1-12.0); Hematocrit 39.4 % (37.0-47.0); Hemoglobin 13.2 g/dL (12.2-16.2); Lymphocytes # 1.8 K/mm3 (0.7-4.5); Lymphocytes % 31.9 % (10-50); Mean Corpuscular HGB Conc 33.4 g/dL (31.8-35.4); Mean Corpuscular Hemoglobin 32.4 pg (27.0-31.2); Mean Platelet Volume 7.2 fl (7.4-10.4); Monocytes # 0.5 K/mm3 (0.1-1.0); Monocytes % 8.5 % (1.7-9.3); Neutrophils # 3.3 K/mm3 (1.8-7.8); Neutrophils % 57.6 % (37.0-80.0); Platelet Count 212 K/mm3 (142-424); Red Blood Count 4.06 M/mm3 (4.20-5.40); Red Cell Distribution Width 13.5 % (11.5-17.5); White Blood Count 5.7 K/mm3 (4.8-10.8)
--- NOTE | 2024-06-08 12:22 | PC.NURSE ---
xr at bedside
[2024-06-08 12:24] LABS: Chloride 107 mmol/L (98-107); Sodium 137 mmol/L (136-145)
[2024-06-08 12:25] LABS: Potassium 3.7 mmoL/L (3.5-5.1)
[2024-06-08 12:27] LABS: Bacteria,Urine Trace /lpf; RBC,Urine Occasional #/hpf (0-3); Squamous Epithelial Cell,Urine Occasional #/hpf (0-5)
[2024-06-08 12:27] LABS: Alanine Aminotransferase 33 U/L (12-78); Anion Gap 6.7 mEq/L (5-15); Aspartate Amino Transferase 39 U/L (14-36); Blood Urea Nitrogen 16 mg/dl (7-17); Carbon Dioxide 27 mmol/L (22.0-30.0); Creatinine Clearance Estimated 42 mL/min (50-200); Estimated Glomerular Filt Rate 49 ml/min (>60); GFR (African American) 59 ML/MIN (>60)
[2024-06-08] MEDS: LACTATED RINGERS 1000ML 500 ML 999 ML IV (12:27)
[2024-06-08 12:28] LABS: Alkaline Phosphatase 62 U/L (38-126); Bilirubin,Total 0.6 mg/dl (0.2-1.3); Calcium 9.5 mg/dl (8.4-10.2); Glucose 107 mg/dl (74-100); Total Protein,Serum 6.8 g/dl (6.3-8.2)
[2024-06-08 12:47] LABS: Coronavirus 19, PCR Not Detected (NotDetected); Influenza A, PCR Not Detected (NotDetected); Influenza B, PCR Not Detected (NotDetected)
--- NOTE | 2024-06-08 12:54 | PC.NURSE ---
pt to ct
[2024-06-08 12:56] LABS: HIV (1&2) Antibody Rapid NONREACTIVE (NONREACTIVE)
[2024-06-08 13:03] LABS: Troponin I < 0.01 ng/ml (0.00-0.034)
--- NOTE | 2024-06-08 13:48 | CT_ITS ---
FINAL REPORT TECHNIQUE: Axial CT without IV contrast administration. This study was performed with techniques to keep radiation doses as low as reasonably achievable (ALARA). Individualized dose reduction techniques using automated exposure control or adjustment of mA and/or kV according to the patient's size were employed. This study was performed with techniques to keep radiation doses as low as reasonably achievable, (ALARA). Individualized dose reduction techniques using automated exposure control or adjustment of mA and/or kV according to the patient''s size were employed. CLINICAL HISTORY: f/u abnormal CXR FINDINGS: No acute lung disease is present. No pleural or pericardial effusion is seen. No adenopathy or mass lesion is present. Limited images of the upper abdomen demonstrate a distended gallbladder. IMPRESSION: No acute findings of the chest or evidence of mass. Nonspecific gallbladder distention. Reviewed, Interpreted and Dictated by Rylan Dias MD Transcribed by Veronica Velazquez Authenticated and [facility]
--- NOTE | 2024-06-08 14:25 | PC.NURSE ---
on phone with hospitalist
--- NOTE | 2024-06-08 14:29 | PC.NURSE ---
DR TRIPLETT AT BEDSIDE TO UPDATE FAMILY
--- NOTE | 2024-06-08 14:37 | EXP.HP ---
History of Present Illness *Admission Date: 06/08/24 *Reason for visit:: confusion *History of present illness: Ms. Carbajal is 74-year-old female with concern for progressing dementia, hypertension, recurrent UTIs. She presented to the ER today with family due to worsening of her encephalopathy and confusion over the past 24 hours. [id number] at bedside states that the patient has become more confused, was hallucinating yesterday seeing blue children in a field and talking about losing her parents recently even though it is her that she lost within the past year. She normally is alert and oriented to person and place. Has been on memory medications for over a year. Seeing neurology as an outpatient for workup of her dementia. Yesterday she had an episode of severe anxiety and received a half dose of her home Ativan. She woke up early this morning at 4 and was not sleeping well and being more confused so her daughter gave her a dose of Seroquel at 10 this morning. On arrival to the ER, she was somnolent with a GCS of 13. Denies any fever, nausea, vomiting. Concern for worsening encephalopathy and delirium however. Workup in the ER with normal white count at 5.7. Kidney function and electrolytes normal. Head imaging showing microvascular changes and loss of mass on CT. Given her encephalopathy, medicine consulted for further management. On arrival to the floor, patient was sleeping comfortably initially on interview. Family expresses concern of memory impairment for the past 3 to 4 years but it has progressed rapidly over the past 8 months. She lost her within the past year and moved from [place] to [place] to live with family in that timeframe. Since then she has had multiple UTIs and her dementia appears to only be progressing faster per their report. They expressed significant concern. During her interview however patient woke up from her sleep and was able to state her name, date of and that she was at a hospital. Did not know city or what hospital. Family states this is an improvement from when she initially came in. Other than stating she has to go to the bathroom (urinate) and is hungry for dinner, she has no acute complaints. [facility] Disclaimer: The information contained in this section may have been updated after the patient was seen, as this information can be updated by other users. Medical History (Updated 06/08/24 @ 17:43 by Oleksandr Sharif MD) Urinary tract infection Memory loss Fixation hardware in spine Fixation hardware in foot Hyperlipemia Hypertension Surgical History History of hysterectomy Family History Other No significant family history Social History Smoking Status: Never smoker alcohol intake: never substance use type: denies use current occupational status: retired Travel in the last 8 weeks: None Review of Systems Review of Systems Review of systems (narrative): 14 point review of systems performed, pertinent positives and negatives as per HPI Meds Home Medications and Allergies Home Medications ?Medication ?Instructions ?Recorded ?Confirmed ?Type amlodipine 5 mg-benazepril 20 mg 1 cap PO DAILY 01/28/24 06/08/24 History capsule donepezil 10 mg tablet 10 mg PO HS 01/28/24 06/08/24 History memantine 14 mg capsule 14 mg PO DAILY 01/28/24 06/08/24 History sprinkle,extended release 24hr escitalopram oxalate 10 mg tablet 10 mg PO DAILY 05/10/24 06/08/24 History pravastatin 40 mg tablet 40 mg PO DAILY 05/10/24 06/08/24 History Lactobacil.acidophilus-Bifido.animalis 1 cap PO HS 06/08/24 06/08/24 History 5 billion cell sprinkle capsule (Probiotic) bupropion HCl 100 mg tablet,12 hr 100 mg PO BID 06/08/24 06/08/24 History sustained-release estradiol 0.01% (0.1 mg/gram) 1 applic vaginal DIRECTED 06/08/24 06/08/24 History vaginal cream lorazepam 1 mg tablet 1 mg PO BID PRN Anxiety 06/08/24 06/08/24 History nitrofurantoin 100 mg PO DAILY 06/08/24 06/08/24 History monohydrate/macrocrystals 100 mg capsule ondansetron HCl 4 mg tablet 4 mg PO DAILY PRN Nausea 06/08/24 06/08/24 History quetiapine 25 mg tablet 25 mg PO HS dementia 06/08/24 06/08/24 History New Prescriptions to Start Prescriptions: Allergies Allergy/AdvReac Type Severity Reaction Status Date / Time Latex, Natural Rubber Allergy Intermediate Rash Verified 05/10/24 09:57 Penicillins Allergy Verified 05/10/24 09:57 Sulfa (Sulfonamide Allergy Verified 05/10/24 09:57 Antibiotics) Exam Data for Last 24 hours Vital signs and Labs for Last 24 Hours: Temp Pulse Resp BP Pulse Ox O2 Del Method 98.0 F 56 L 16 130/61 98 Room Air 06/08/24 11:56 06/08/24 14:00 06/08/24 11:56 06/08/24 14:00 06/08/24 14:00 06/08/24 14:00 Laboratory Results - last 24 hr 06/08/24 12:06: VBG pH 7.40, VBG pCO2 40.6, VBG pO2 74.9 H, VBG HCO3 24.7, VBG Total CO2 25.9, VBG O2 Saturation 94.4 H, VBG Base Excess -0.1, VBG Lactic Acid 1.2 06/08/24 12:08: WBC 5.7, RBC 4.06 L, Hgb 13.2, Hct 39.4, MCV 97.0, MCH 32.4 H, MCHC 33.4, RDW 13.5, Plt Count 212, MPV 7.2 L, Neut % (Auto) 57.6, Lymph % (Auto) 31.9, George % (Auto) 8.5, Eos % (Auto) 1.5, Baso % (Auto) 0.6, Neut # (Auto) 3.3, Lymph # (Auto) 1.8, George # (Auto) 0.5, Eos # (Auto) 0.1, Baso # (Auto) 0.0, Sodium 137, Potassium 3.7, Chloride 107, Carbon Dioxide 27, Anion Gap 6.7, BUN 16, Creatinine 1.10 H, Estimated Creat Clear 42, Estimated GFR 49 L, Est GFR ( Amer) 59, Glucose 107 H, Calcium 9.5, Total Bilirubin 0.6, AST 39 H, ALT 33, Alkaline Phosphatase 62, Troponin I < 0.01, Total Protein 6.8, Albumin 4.1, HIV 1&2 Antibody Rapid Nonreactive 06/08/24 12:10: Urine Color Yellow, Urine Appearance Clear, Urine pH 6.0, Ur Specific Roosevelt 1.015, Urine Protein Negative, Urine Glucose (UA) Negative, Urine Ketones Negative, Urine Blood 1+ A, Urine Nitrate Negative, Urine Bilirubin Negative, Urine Urobilinogen 0.2, Ur Leukocyte Esterase Negative, Urine RBC Occasional, Urine WBC None, Ur Squamous Epith Cells Occasional, Urine Bacteria Trace 06/08/24 12:41: SARS-CoV-2 (PCR) Not detected, Influenza A Untype (PCR) Not detected, Influenza Type B (PCR) Not detected I & O for Last 24 hours: Intake & Output 06/05/24 06/06/24 06/07/24 06/08/24 23:59 23:59 23:59 23:59 Weight 58.967 kg Constitutional Constitutional: no acute distress and cooperative *Routine HEENT Exam Head: Present normocephalic Eye: Present EOMI and PERRL ENT: Present mucous membranes moist *Routine Neck Exam Neck: Present supple; Absent lymphadenopathy *Routine Respiratory Exam Respiratory: Present CTA bilaterally; Absent respiratory distress, rhonchi, wheezes or crackles *Routine Cardiovascular Exam Cardiovascular: Present RRR *Routine Abdominal Exam Abdominal: Present soft and normoactive bowel sounds; Absent tenderness *Routine Rectal Exam Rectal:: deferred *Routine Genitalia Exam Genitalia:: deferred *Routine Extremities Exam Extremities: Absent cyanosis, clubbing or edema *Routine Skin Exam Skin: Present warm; Absent rash *Routine Neurological Exam Neurological: Present alert and moving all extremities; Absent altered mental status Comments: Oriented to self and place. Knows she is at a hospital but not which hospital. Does not know the city she is in. Knows her name and date of . Assessment and Plan *Assessment and plan (1) Acute encephalopathy: Status: Acute Category: Medical Code(s): G93.40 - Encephalopathy, unspecified (2) OAB (overactive bladder): Status: Acute Category: Medical Code(s): N32.81 - Overactive bladder (3) Dementia: Status: Acute Category: Medical Code(s): F03.90 - Unspecified dementia, unspecified severity, without behavioral disturbance, psychotic disturbance, mood disturbance, and anxiety (4) Depression: Problem Comment: Symptomatic. Status: Chronic Qualifiers: Depression Type: reactive depression Qualified Code(s): F32.9 - Major depressive disorder, single episode, unspecified Category: Medical Code(s): F32.A - Depression, unspecified (5) Hyperlipemia: Status: Chronic Category: Medical Code(s): E78.5 - Hyperlipidemia, unspecified (6) Hypertension: Status: Chronic Category: Medical Code(s): I10 - Essential (primary) hypertension Plan 74-year-old female who presented with altered mental status. Concern for acute encephalopathy on chronic dementia. Workup in the ER with no clear source. Differential includes medication side effect, UTI, progressing dementia. Discussed case with ER physician, request admission for further management given her parminder encephalopathy in the ER and inability to ambulate. I agreed to admit for further management. Showing some improvement on interview. Case management consulted to assist in the morning, PT and OT to evaluate. Adjustments to medications as follows. Problems addressed as follows: Acute encephalopathy Dementia -Differential includes medications, UTI, progression of dementia, depression, or other acute process. -Per my review of CT of head, patient has prominent sulci concerning for loss of mass. Reviewed previous MRI which shows punctate chronic ischemic changes. Also found to have encephalomalacia. -Received medications yesterday and today that could cause some sedation. -Will hold Seroquel, Ativan, donepezil, and memantine at this time -Strong concern symptoms are a combo of multiple etiologies including her dementia and sedating medications. -Urinalysis relatively unremarkable but given recurrence of UTIs and recent visit with urology, will obtain urine culture. Initiate ceftriaxone 1 g daily for 48 hours pending urine cultures -Hold home nitrofurantoin daily while receiving IV ceftriaxone -Will administer 1 L LR overnight for adequate hydration as patient does not drink well per family's report -Serial exams, repeat evaluation in the morning. Encourage quiet hours from 10 PM to 6 AM to promote sleep. -Encourage day night routine. - White count normal at 5.7. No anemia with hemoglobin of 13.2. Creatinine normal at 1.1, BUN 16. Potassium normal at 3.7. Ammonia obtained to evaluate for hepatic encephalopathy, less than 9. Urine with no nitrate, no leuk leuk esterase, only trace bacteria. Was a cath specimen obtained in the ER. Culture pending. - Repeat CBC, CMP, magnesium ordered for the morning Depression: Continue citalopram 10 mg daily as formulary conversion for her home Lexapro. Continue Wellbutrin 100 mg twice daily. Will refer to psychiatry as an outpatient Hypertension: continue home amlodipine/benazepril once daily Hyperlipidemia: Continue home pravastatin 40 mg daily Full code Ambulatory, no anticoagulation indicated Regular diet
--- NOTE | 2024-06-08 14:41 | PC.NURSE ---
call made to supervisor [facility] for bed placement
[2024-06-08 14:51] LABS: Albumin Level 4.1 g/dl (3.5-5.0); Albumin/Globulin Ratio 1.5 (1.1-1.8); Globulin 2.7 g/dL (1.3-3.2)
[2024-06-08 14:58] LABS: Ammonia < 9 umol/L (9-30)
--- NOTE | 2024-06-08 15:01 | HMH.PHAINT1 ---
Pharmacy Intervention Comments: MEDICATION RECONCILIATION COMPLETED ON PATIENT USING EXTERNAL FILL HISTORY FROM PHARMACY. -TL DAVILA, JASSID
--- NOTE | 2024-06-08 15:04 | PC.NURSE ---
attempted to call report to second floor nurse, he is busy getting a pt to the [employer], and will call back once he is finished with that pt.
--- NOTE | 2024-06-08 15:07 | PC.NURSE ---
call received back from roopa on second floor, took report for pt
--- NOTE | 2024-06-08 15:25 | PC.NURSE ---
PT GONE TO [employer] VIA STRETCHER
--- NOTE | 2024-06-08 15:27 | PC.NURSE ---
arrived by stretcher from ED
[2024-06-08 16:18] LABS: Troponin I < 0.01 ng/ml (0.00-0.034)
[2024-06-08] MEDS: LACTATED RINGERS 1000ML 1,000 ML 125 ML IV (17:30)
[2024-06-08] MEDS: CEFTRIAXONE SODIUM 1 GM in 0.9 % SODIUM CHLORIDE 50 ML IV (17:31)
[2024-06-09] VITALS: BP 155/70; PULSE 59; RESP 18; TEMP 36.9; O2SAT 93
[2024-06-09 04:00] VITALS: BP 162/77; PULSE 66; RESP 16; TEMP 37.1; O2SAT 96; BMI 23.8
--- NOTE | 2024-06-09 04:47 | PC.NURSE ---
74 yo fe pt awakened for assessment at the beginning of the shift. Pt was A/O X 2. She has slept peacefully throughout the night. No complaints this am.
[2024-06-09 07:02] LABS: Alanine Aminotransferase 28 U/L (12-78); Alkaline Phosphatase 59 U/L (38-126); Aspartate Amino Transferase 33 U/L (14-36); Bilirubin,Total 0.6 mg/dl (0.2-1.3); Blood Urea Nitrogen 16 mg/dl (7-17); Calcium 9.2 mg/dl (8.4-10.2); Chloride 107 mmol/L (98-107); Creatinine Clearance Estimated 47 mL/min (50-200); Estimated Glomerular Filt Rate 49 ml/min (>60); GFR (African American) 59 ML/MIN (>60); Glucose 89 mg/dl (74-100); Magnesium 1.8 mg/dl (1.6-2.3); Potassium 3.8 mmoL/L (3.5-5.1); Sodium 138 mmol/L (136-145); Total Protein,Serum 6.2 g/dl (6.3-8.2)
[2024-06-09 07:03] LABS: Albumin Level 3.7 g/dl (3.5-5.0); Albumin/Globulin Ratio 1.5 (1.1-1.8); Anion Gap 6.8 mEq/L (5-15); Carbon Dioxide 28 mmol/L (22.0-30.0); Globulin 2.5 g/dL (1.3-3.2)
[2024-06-09 07:11] LABS: Basophils % 0.5 % (0.1-2.0); Eosinophils # 0.1 K/mm3 (0.0-0.4); Eosinophils % 1.6 % (0.1-12.0); Hematocrit 39.3 % (37.0-47.0); Hemoglobin 13.1 g/dL (12.2-16.2); Lymphocytes # 1.7 K/mm3 (0.7-4.5); Lymphocytes % 31.8 % (10-50); Mean Corpuscular HGB Conc 33.2 g/dL (31.8-35.4); Mean Corpuscular Hemoglobin 32.3 pg (27.0-31.2); Mean Corpuscular Volume 97.4 fl (81-99); Mean Platelet Volume 7.2 fl (7.4-10.4); Monocytes # 0.5 K/mm3 (0.1-1.0); Monocytes % 9.5 % (1.7-9.3); Neutrophils % 56.6 % (37.0-80.0); Platelet Count 202 K/mm3 (142-424); Red Blood Count 4.04 M/mm3 (4.20-5.40); Red Cell Distribution Width 13.6 % (11.5-17.5); White Blood Count 5.4 K/mm3 (4.8-10.8)
[2024-06-09 08:00] VITALS: BP 144/77; PULSE 63; RESP 16; TEMP 37.2; O2SAT 98
[2024-06-09 08:35] LABS: HCV Ab Non Reactive (Non Reactive)
[2024-06-09] MEDS: LISINOPRIL 20MG TABLET 20 MG PO (08:53)
[2024-06-09] MEDS: CITALOPRAM 20MG TABLET 20 MG PO (08:53)
[2024-06-09] MEDS: AMLODIPINE 5MG TABLET 5 MG PO (08:53)
[2024-06-09] MEDS: buPROPion HCL 100 MG TABLET PO (08:53)
--- NOTE | 2024-06-09 08:54 | HMH.PTEV ---
Physical Therapy Evaluation Rehab PT IP Evaluation Start: 06/08/24 17:41 Freq: ONCE Status: Active Protocol: Document 06/09/24 07:41 BHAVIN (Rec: 06/09/24 08:53 BHAVIN [id number]) Subjective/History History History Per H&P: Ms. Carbajal is 74- year-old female with concern for progressing dementia, hypertension, recurrent UTIs. She presented to the ER today with family due to worsening of her encephalopathy and confusion over the past 24 hours. [id number] at bedside states that the patient has become more confused, was hallucinating yesterday seeing blue children in a field and talking about losing her parents recently even though it is her that she lost within the past year. She normally is alert and oriented to person and place. Has been on memory medications for over a year. Seeing neurology as an outpatient for workup of her dementia. Yesterday she had an episode of severe anxiety and received a half dose of her home Ativan. She woke up early this morning at 4 and was not sleeping well and being more confused so her daughter gave her a dose of Seroquel at 10 this morning. On arrival to the ER, she was somnolent with a GCS of 13. Denies any fever, nausea, vomiting. Concern for worsening encephalopathy and delirium however. Workup in the ER with normal white count at 5.7. Kidney function and electrolytes normal. Head imaging showing microvascular changes and loss of mass on CT . Given her encephalopathy, medicine consulted for further management. Subjective Subjective Pt lives with her son in a single-story home with 1 KAR[address]. Pt was IND with mobility prior to admission. Pt unsure if she used an AD and unsure of reason for [facility] admission. Son clarified history. Pt did not use AD and was not driving prior. Pt's son reports she moves around well. New diagnosis of cancer in past 12 No months? Rehab PT IP Eval Objective Appearance Patient Behavior Appropriate,Confused Speech Pattern Clear Ambulation Patient Able to Ambulate Yes Ambulation Observation IP General Gait Pattern Observation No Deviations/Normal Ambulation Distance (feet) 100 Ambulation Assistive Device None Ambulation Ability Independent Balance Ability to Arise Able, w/o using arms Sitting Balance Steady, safe Standing Balance Narrow stance w/o support Dynamic Sitting Balance Ability Normal Dynamic Standing Balance Ability Normal Transfers Bed Transfer Ability Independent Sit to Stand Bed Transfer Ability Independent Rehab PT IP prob,goals,plan Problems Date of Evaluation: 06/09/24 Rehab Potential Rehab Potential Innapropriate for Skilled Therapy Discharge Plan PT Discharge Plan Pt safe to d/c home when deemed medically necessary d/t current level of mobility, home set-up, and family support. Pt demo'd safe ambulation and even demo'd jogging to show PT how well she moves. Pt not appropriate for skilled acute care PT at this time d/t pt?s mobility being at baseline. Eval Complexity Eval Charge Codes 43951 - Low Complexity PHYSICIAN CERTIFICATION: I certify the specified therapy services for Amaris Carbajal are required, authorized, and reviewed every 30 days.
--- NOTE | 2024-06-09 09:52 | EXP.DC.SUM ---
General Admission date:: 06/08/24 Discharge date: 06/09/24 HPI HPI HPI: Ms. Carbajal is 74-year-old female with concern for progressing dementia, hypertension, recurrent UTIs. She presented to the ER today with family due to worsening of her encephalopathy and confusion over the past 24 hours. [id number] at bedside states that the patient has become more confused, was hallucinating yesterday seeing blue children in a field and talking about losing her parents recently even though it is her that she lost within the past year. She normally is alert and oriented to person and place. Has been on memory medications for over a year. Seeing neurology as an outpatient for workup of her dementia. Yesterday she had an episode of severe anxiety and received a half dose of her home Ativan. She woke up early this morning at 4 and was not sleeping well and being more confused so her daughter gave her a dose of Seroquel at 10 this morning. On arrival to the ER, she was somnolent with a GCS of 13. Denies any fever, nausea, vomiting. Concern for worsening encephalopathy and delirium however. Workup in the ER with normal white count at 5.7. Kidney function and electrolytes normal. Head imaging showing microvascular changes and loss of mass on CT. Given her encephalopathy, medicine consulted for further management. On arrival to the floor, patient was sleeping comfortably initially on interview. Family expresses concern of memory impairment for the past 3 to 4 years but it has progressed rapidly over the past 8 months. She lost her within the past year and moved from [place] to [place] to live with family in that timeframe. Since then she has had multiple UTIs and her dementia appears to only be progressing faster per their report. They expressed significant concern. During her interview however patient woke up from her sleep and was able to state her name, date of and that she was at a hospital. Did not know city or what hospital. Family states this is an improvement from when she initially came in. Other than stating she has to go to the bathroom (urinate) and is hungry for dinner, she has no acute complaints. Hospital Course Hospital Course Hospital Course: 74-year-old female who presented with altered mental status. Concern for acute encephalopathy on chronic dementia. Workup in the ER with no clear source. Differential includes medication side effect, UTI, progressing dementia. Discussed case with ER physician, request admission for further management given her parminder encephalopathy in the ER and inability to ambulate. I agreed to admit for further management. Showing some improvement on interview. Case management consulted to assist in the morning, PT and OT evaluated. Patient stable for discharge home with family. Resources provided. Will refer to psychiatry. Recommend following up with neurology as previously scheduled. Counseled on medication adjustments. Problems addressed as follows: Acute encephalopathy Dementia -Differential includes medications, UTI, progression of dementia, depression, or other acute process. Per my review of CT of head, patient has prominent sulci concerning for loss of mass. Reviewed previous MRI which shows punctate chronic ischemic changes. Also found to have encephalomalacia. Received medications day before admission and on morning of admission that could cause some sedation and drowsiness. Held her Seroquel, Ativan, donepezil and memantine on day of admission. Recommend resuming donepezil and memantine. Would only use Seroquel at night if having agitation or appears more anxious or depressed. Recommend avoiding Ativan due to concern for worsening her cognition. Further management with outpatient providers to discuss potential scheduled regimen of Seroquel versus dose adjustments or alternative medications for her anxiety and depression. - Strong concern symptoms are a combo of multiple etiologies including her dementia and sedating medications. - Urinalysis relatively unremarkable but given recurrence of UTIs and recent visit with urology, will obtain urine culture. Covered for 48 hours of ceftriaxone. Will monitor culture after discharge. No growth as of time of discharge. Recommend resuming nitrofurantoin daily after discharge. Patient at baseline mentation morning of discharge. Labs unremarkable with normal white count. Electrolytes normal. Kidney function normal. Stable on room air. Depression: Continue citalopram 10 mg daily as formulary conversion for her home Lexapro. Continue Wellbutrin 100 mg twice daily. Will refer to psychiatry as an outpatient Hypertension: continue home amlodipine/benazepril once daily Hyperlipidemia: Continue home pravastatin 40 mg daily Total time spent on discharge 32 minutes in counseling, documentation, chart review, and direct care with patient. Exam Data for Last 24 hours Vital signs and Labs for Last 24 Hours: Temp Pulse Resp BP Pulse Ox O2 Del Method 98.9 F 63 16 144/77 H 98 Room Air 06/09/24 08:00 06/09/24 08:00 06/09/24 08:00 06/09/24 08:00 06/09/24 08:00 06/09/24 06:53 Laboratory Results - last 24 hr 06/08/24 12:06: VBG pH 7.40, VBG pCO2 40.6, VBG pO2 74.9 H, VBG HCO3 24.7, VBG Total CO2 25.9, VBG O2 Saturation 94.4 H, VBG Base Excess -0.1, VBG Lactic Acid 1.2 06/08/24 12:08: WBC 5.7, RBC 4.06 L, Hgb 13.2, Hct 39.4, MCV 97.0, MCH 32.4 H, MCHC 33.4, RDW 13.5, Plt Count 212, MPV 7.2 L, Neut % (Auto) 57.6, Lymph % (Auto) 31.9, Cheyenne % (Auto) 8.5, Eos % (Auto) 1.5, Baso % (Auto) 0.6, Neut # (Auto) 3.3, Lymph # (Auto) 1.8, Cheyenne # (Auto) 0.5, Eos # (Auto) 0.1, Baso # (Auto) 0.0, Sodium 137, Potassium 3.7, Chloride 107, Carbon Dioxide 27, Anion Gap 6.7, BUN 16, Creatinine 1.10 H, Estimated Creat Clear 42, Estimated GFR 49 L, Est GFR ( Amer) 59, Glucose 107 H, Calcium 9.5, Total Bilirubin 0.6, AST 39 H, ALT 33, Alkaline Phosphatase 62, Troponin I < 0.01, Total Protein 6.8, Albumin 4.1, Globulin 2.7, Albumin/Globulin Ratio 1.5, Hepatitis C Antibody Non reactive, Hep C Ab Comment Comment, HIV 1&2 Antibody Rapid Nonreactive 06/08/24 12:10: Urine Color Yellow, Urine Appearance Clear, Urine pH 6.0, Ur Specific Clutier 1.015, Urine Protein Negative, Urine Glucose (UA) Negative, Urine Ketones Negative, Urine Blood 1+ A, Urine Nitrate Negative, Urine Bilirubin Negative, Urine Urobilinogen 0.2, Ur Leukocyte Esterase Negative, Urine RBC Occasional, Urine WBC None, Ur Squamous Epith Cells Occasional, Urine Bacteria Trace 06/08/24 12:41: SARS-CoV-2 (PCR) Not detected, Influenza A Untype (PCR) Not detected, Influenza Type B (PCR) Not detected 06/08/24 14:45: Ammonia < 9 L 06/08/24 15:35: Troponin I < 0.01 06/09/24 05:59: WBC 5.4, RBC 4.04 L, Hgb 13.1, Hct 39.3, MCV 97.4, MCH 32.3 H, MCHC 33.2, RDW 13.6, Plt Count 202, MPV 7.2 L, Neut % (Auto) 56.6, Lymph % (Auto) 31.8, Cheyenne % (Auto) 9.5 H, Eos % (Auto) 1.6, Baso % (Auto) 0.5, Neut # (Auto) 3.0, Lymph # (Auto) 1.7, Cheyenne # (Auto) 0.5, Eos # (Auto) 0.1, Baso # (Auto) 0.0, Sodium 138, Potassium 3.8, Chloride 107, Carbon Dioxide 28, Anion Gap 6.8, BUN 16, Creatinine 1.10 H, Estimated Creat Clear 47, Estimated GFR 49 L, Est GFR ( Amer) 59, Glucose 89, Calcium 9.2, Magnesium 1.8, Total Bilirubin 0.6, AST 33, ALT 28, Alkaline Phosphatase 59, Total Protein 6.2 L, Albumin 3.7, Globulin 2.5, Albumin/Globulin Ratio 1.5 I & O for Last 24 hours: Intake & Output 06/06/24 06/07/24 06/08/24 06/09/24 23:59 23:59 23:59 23:59 Intake Total 270 / 270 270 / 270 Output Total 0 / 0 0 / 0 Balance 270 / 270 270 / 270 Weight 64.552 kg 64.909 kg Constitutional Constitutional: no acute distress, average body habitus and cooperative *Routine HEENT Exam Head: Present normocephalic Eye: Present EOMI and PERRL ENT: Present mucous membranes moist *Routine Neck Exam Neck: Present supple; Absent lymphadenopathy *Routine Respiratory Exam Respiratory: Present CTA bilaterally; Absent rhonchi, wheezes or crackles *Routine Cardiovascular Exam Cardiovascular: Present RRR *Routine Abdominal Exam Abdominal: Present soft and normoactive bowel sounds; Absent tenderness *Routine Rectal Exam Patient deferred: visual exam *Routine Exam Patient deferred: external exam *Routine Extremities Exam Extremities: Absent cyanosis, clubbing or edema *Routine Skin Exam Skin: Present warm; Absent rash *Routine Neurological Exam Neurological: Present alert and moving all extremities; Absent altered mental status Comments: Oriented to self, knows name and date of . Knows she is at the hospital. Stated Александр today. Does not know what city she is in. Appears at baseline mentation. Results Data Completed and Pending Labs on day of discharge: Labs from last 24 hours 06/09/24 06/08/24 06/08/24 05:59 15:35 14:45 WBC 5.4 RBC 4.04 L Hgb 13.1 Hct 39.3 MCV 97.4 MCH 32.3 H MCHC 33.2 RDW 13.6 Plt Count 202 MPV 7.2 L Neut % (Auto) 56.6 Lymph % (Auto) 31.8 Cheyenne % (Auto) 9.5 H Eos % (Auto) 1.6 Baso % (Auto) 0.5 Neut # (Auto) 3.0 Lymph # (Auto) 1.7 Cheyenne # (Auto) 0.5 Eos # (Auto) 0.1 Baso # (Auto) 0.0 VBG pH VBG pCO2 VBG pO2 VBG HCO3 VBG Total CO2 VBG O2 Saturation VBG Base Excess VBG Lactic Acid Sodium 138 Potassium 3.8 Chloride 107 Carbon Dioxide 28 Anion Gap 6.8 BUN 16 Creatinine 1.10 H Estimated Creat Clear 47 Estimated GFR 49 L Est GFR ( Amer) 59 Glucose 89 Calcium 9.2 Magnesium 1.8 Total Bilirubin 0.6 AST 33 ALT 28 Alkaline Phosphatase 59 Ammonia < 9 L Troponin I < 0.01 Total Protein 6.2 L Albumin 3.7 Globulin 2.5 Albumin/Globulin Ratio 1.5 Urine Color Urine Appearance Urine pH Ur Specific Clutier Urine Protein Urine Glucose (UA) Urine Ketones Urine Blood Urine Nitrate Urine Bilirubin Urine Urobilinogen Ur Leukocyte Esterase Urine RBC Urine WBC Ur Squamous Epith Cells Urine Bacteria SARS-CoV-2 (PCR) Hepatitis C Antibody Hep C Ab Comment HIV 1&2 Antibody Rapid Influenza A Untype (PCR) Influenza Type B (PCR) 06/08/24 06/08/24 06/08/24 12:41 12:10 12:08 WBC 5.7 RBC 4.06 L Hgb 13.2 Hct 39.4 MCV 97.0 MCH 32.4 H MCHC 33.4 RDW 13.5 Plt Count 212 MPV 7.2 L Neut % (Auto) 57.6 Lymph % (Auto) 31.9 Cheyenne % (Auto) 8.5 Eos % (Auto) 1.5 Baso % (Auto) 0.6 Neut # (Auto) 3.3 Lymph # (Auto) 1.8 Cheyenne # (Auto) 0.5 Eos # (Auto) 0.1 Baso # (Auto) 0.0 VBG pH VBG pCO2 VBG pO2 VBG HCO3 VBG Total CO2 VBG O2 Saturation VBG Base Excess VBG Lactic Acid Sodium 137 Potassium 3.7 Chloride 107 Carbon Dioxide 27 Anion Gap 6.7 BUN 16 Creatinine 1.10 H Estimated Creat Clear 42 Estimated GFR 49 L Est GFR ( Amer) 59 Glucose 107 H Calcium 9.5 Magnesium Total Bilirubin 0.6 AST 39 H ALT 33 Alkaline Phosphatase 62 Ammonia Troponin I < 0.01 Total Protein 6.8 Albumin 4.1 Globulin 2.7 Albumin/Globulin Ratio 1.5 Urine Color Yellow Urine Appearance Clear Urine pH 6.0 Ur Specific Clutier 1.015 Urine Protein Negative Urine Glucose (UA) Negative Urine Ketones Negative Urine Blood 1+ A Urine Nitrate Negative Urine Bilirubin Negative Urine Urobilinogen 0.2 Ur Leukocyte Esterase Negative Urine RBC Occasional Urine WBC None Ur Squamous Epith Cells Occasional Urine Bacteria Trace SARS-CoV-2 (PCR) Not detected Hepatitis C Antibody Non reactive Hep C Ab Comment Comment HIV 1&2 Antibody Rapid Nonreactive Influenza A Untype (PCR) Not detected Influenza Type B (PCR) Not detected 06/08/24 12:06 WBC RBC Hgb Hct MCV MCH MCHC RDW Plt Count MPV Neut % (Auto) Lymph % (Auto) Cheyenne % (Auto) Eos % (Auto) Baso % (Auto) Neut # (Auto) Lymph # (Auto) [place]yenne # (Auto) Eos # (Auto) Baso # (Auto) VBG pH 7.40 VBG pCO2 40.6 VBG pO2 74.9 H VBG HCO3 24.7 VBG Total CO2 25.9 VBG O2 Saturation 94.4 H VBG Base Excess -0.1 VBG Lactic Acid 1.2 Sodium Potassium Chloride Carbon Dioxide Anion Gap BUN Creatinine Estimated Creat Clear Estimated GFR Est GFR ( Amer) Glucose Calcium Magnesium Total Bilirubin AST ALT Alkaline Phosphatase Ammonia Troponin I Total Protein Albumin Globulin Albumin/Globulin Ratio Urine Color Urine Appearance Urine pH Ur Specific Cl[place] Urine Protein Urine Glucose (UA) Urine Ketones Urine Blood Urine Nitrate Urine Bilirubin Urine Urobilinogen Ur Leukocyte Esterase Urine RBC Urine WBC Ur Squamous Epith Cells Urine Bacteria SARS-CoV-2 (PCR) Hepatitis C Antibody Hep C Ab Comment HIV 1&2 Antibody Rapid Influenza A Untype (PCR) Influenza Type B (PCR) DS: Diagnosis Discharge Diagnosis (1) Acute encephalopathy: Status: Acute Code(s): G93.40 - Encephalopathy, unspecified (2) OAB (overactive bladder): Status: Acute Code(s): N32.81 - Overactive bladder (3) Dementia: Status: Acute Code(s): F03.90 - Unspecified dementia, unspecified severity, without behavioral disturbance, psychotic disturbance, mood disturbance, and anxiety (4) Depression: Status: Chronic Code(s): F32.A - Depression, unspecified Qualifiers: Depression Type: reactive depression Qualified Code(s): F32.9 - Major depressive disorder, single episode, unspecified Problem details: Symptomatic. (5) Hyperlipemia: Status: Chronic Code(s): E78.5 - Hyperlipidemia, unspecified (6) Hypertension: Status: Chronic Code(s): I10 - Essential (primary) hypertension Meds Home Medications and Allergies Home Medications ?Medication ?Instructions ?Recorded ?Confirmed ?Type amlodipine 5 mg-benazepril 20 mg 1 cap PO DAILY 01/28/24 06/08/24 History capsule donepezil 10 mg tablet 10 mg PO HS 01/28/24 06/08/24 History memantine 14 mg capsule 14 mg PO DAILY 01/28/24 06/08/24 History sprinkle,extended release 24hr escitalopram oxalate 10 mg tablet 10 mg PO DAILY 05/10/24 06/08/24 History pravastatin 40 mg tablet 40 mg PO DAILY 05/10/24 06/08/24 History Lactobacil.acidophilus-Bifido.animalis 1 cap PO HS 06/08/24 06/08/24 History 5 billion cell sprinkle capsule (Probiotic) bupropion HCl 100 mg tablet,12 hr 100 mg PO BID 06/08/24 06/08/24 History sustained-release estradiol 0.01% (0.1 mg/gram) 1 applic vaginal DIRECTED 06/08/24 06/08/24 History vaginal cream nitrofurantoin 100 mg PO DAILY 06/08/24 06/08/24 History monohydrate/macrocrystals 100 mg capsule ondansetron HCl 4 mg tablet 4 mg PO DAILY PRN Nausea 06/08/24 06/08/24 History quetiapine 25 mg tablet 25 mg PO HS dementia 06/08/24 06/08/24 History New Prescriptions to Start Prescriptions: Allergies Allergy/AdvReac Type Severity Reaction Status Date / Time Latex, Natural Rubber Allergy Intermediate Rash Verified 05/10/24 09:57 Penicillins Allergy Verified 05/10/24 09:57 Sulfa (Sulfonamide Allergy Verified 05/10/24 09:57 Antibiotics) Discharge Plan Disposition Patient Disposition: Home, Self-Care Condition: Fair Follow up Plan Follow up with: Jessie Randall APRN [Primary Care Provider] - 06/16/24 10:00 am Courtney Obrien APRN [Nurse Practitioner] - 07/08/24 9:00 am (please arrive 15 minutes prior to appointment for paperwork) Prescriptions/Medication Reconciliation: Continued escitalopram oxalate 10 mg tablet 10 mg PO DAILY pravastatin 40 mg tablet 40 mg PO DAILY donepezil 10 mg tablet 10 mg PO HS Patient Comments: TAKE 1 TABLET BY MOUTH DAILY AT BEDTIME amlodipine-benazepril 5-20 mg capsule 1 cap PO DAILY Patient Comments: TAKE 1 CAPSULE BY MOUTH ONCE DAILY memantine 14 mg capsule,sprinkle,ER 24hr 14 mg PO DAILY Patient Comments: TAKE 1 CAPSULE BY MOUTH DAILY nitrofurantoin monohyd/m-cryst 100 mg capsule 100 mg PO DAILY Patient Comments: TAKE 1 CAPSULE BY MOUTH ONCE DAILY WITH FOOD bupropion HCl 100 mg tablet sustained-release 12 hr 100 mg PO BID estradiol 0.01 % (0.1 mg/gram) cream 1 applic vaginal DIRECTED quetiapine 25 mg tablet 25 mg PO HS Patient Comments: TAKE 1 TABLET BY MOUTH DAILY AT BEDTIME ondansetron HCl 4 mg tablet 4 mg PO DAILY PRN (Reason: Nausea) Patient Comments: TAKE 1 TABLET BY MOUTH DAILY Probiotic 5 billion cell Capsule, Sprinkle 1 cap PO HS Discontinued lorazepam 1 mg tablet 1 mg PO BID PRN (Reason: Anxiety) Patient Comments: TAKE 1 TABLET BY MOUTH TWICE DAILY Problem Reconciliation Problems Reviewed?: Yes Patient Discharge Instructions Patient Instructions: Encephalopathy, DI for Encephalopathy Print Language: Tuvaluan Providers Primary Care Provider: Jessie Randall Admit Provider: Oleksandr Sharif Attending Provider: Oleksandr Sharif
--- NOTE | 2024-06-09 10:06 | HMH.OTEV ---
OT Inpatient Evaluation Rehab OT IP Evaluation Start: 06/08/24 17:41 Freq: ONCE Status: Active Protocol: Document 06/09/24 10:04 JACK (Rec: 06/09/24 10:06 JACK [id number]) Rehab OT IP Assessment Subjective History Ms. Carbajal is 74-year-old female with concern for progressing dementia, hypertension, recurrent UTIs. She presented to the ER today with family due to worsening of her encephalopathy and confusion over the past 24 hours. Nlvedtfp-na-nuk at bedside states that the patient has become more confused, was hallucinating yesterday seeing blue children in a field and talking about losing her parents recently even though it is her that she lost within the past year. She normally is alert and oriented to person and place. Has been on memory medications for over a year. Seeing neurology as an outpatient for workup of her dementia. Yesterday she had an episode of severe anxiety and received a half dose of her home Ativan. She woke up early this morning at 4 and was not sleeping well and being more confused so her daughter gave her a dose of Seroquel at 10 this morning. On arrival to the ER, she was somnolent with a GCS of 13. Denies any fever, nausea, vomiting. Concern for worsening encephalopathy and delirium however. Workup in the ER with normal white count at 5.7. Kidney function and electrolytes normal. Head imaging showing microvascular changes and loss of mass on CT . Given her encephalopathy, medicine consulted for further management. On arrival to the floor, patient was sleeping comfortably initially on interview. Family expresses concern of memory impairment for the past 3 to 4 years but it has progressed rapidly over the past 8 months. She lost her within the past year and moved from [place] to [place] to live with family in that timeframe. Since then she has had multiple UTIs and her dementia appears to only be progressing faster per their report. They expressed significant concern. During her interview however patient woke up from her sleep and was able to state her name, date of and that she was at a hospital. Did not know city or what hospital. Family states this is an improvement from when she initially came in. Other than stating she has to go to the bathroom ( urinate) and is hungry for dinner, she has no acute complaints. I can get up. Patient lives at home with family in 1 story home. Lives with son and dtr-in-law. Independent with ADLs and fx'l mobility. FAmily assist with driving and housekeeping tasks . Subjective Analysis patient safety awareness during bed mobility, transfers, fx'l mobility and toileting task. Patient completed all tasks indepedently. No LOB noted. Objective Patient Orientation Person,Name,Birthday Right Upper Extremity Gross ROM WFL Left Upper Extremity Gross ROM WFL Bed Mobility bed mobility - supine/sit Assist Level Independent Transfer Training Sit/Stand/Pivot Transfer Assist Level Independent Chair Transfer Ability Independent Chair Transfer Technique Sit to/from Ambulatory Rehab OT IP prob,goals,plan Problems Date of Evaluation: 06/09/24 Rehab Potential Rehab Potential Innapropriate for Skilled Therapy Discharge Plan OT Discharge Plan Patient appears to be at baseline. Return home with family after medical d/c. Eval Complexity Eval Charge Codes 31669 - Low Complexity PHYSICIAN CERTIFICATION: I certify the specified therapy services for Amaris Carbajal are required, authorized, and reviewed every 30 days.
--- NOTE | 2024-06-09 10:12 | SW/DCPLANNER ---
I received a referral on this patient regarding family request to discuss resources. PT/OT evaluated patient and stated that she is safe to return home/home health services not needed at this time. I spoke in private w/ patient's son. Son stated that they are not in need of LTC at this time but feels is it in close future. I did speak w/ son regarding Neuro follow up, establishment w/ Behavior Health and the importance of preplanning LTC (touring facilities, being added to waiting list, ect..). I will provide this patient w/ a private sitters list as well. Son and I did discuss LTC facilities. I will continue to follow up w/ patient/family for any future needs/questions. Per MD patient will discharge home this afternoon pending no setbacks.
[2024-06-09] MEDS: MEMANTINE 10MG TABLET 10 MG PO (11:39)
[2024-06-09] MEDS: CEFTRIAXONE SODIUM 1 GM in 0.9 % SODIUM CHLORIDE 50 ML IV (12:18)
--- NOTE | 2024-06-10 09:43 | CARE MANAGER ---
Spoke with patient's daughter in law. She states patient is doing very well. Denies any questions or concerns and is aware of follow up appointments. OMAR Cleary
== END 2024-06-09 13:01 | disposition home or self-care (01) ==
LOC: ER 14:35 → 2ND 14:46
PROVIDERS: Admitting Provider Internal Medicine Adolescent Medicine; Emergency Provider Student in an Organized Health Care Education/Training Program; PCP Nurse Practitioner; Visit Provider Internal Medicine Adolescent Medicine
DX: G93.40 Encephalopathy, unspecified (principal); F03.92 Unspecified dementia, unspecified severity, with psychotic disturbance; N32.81 Overactive bladder; F32.9 Major depressive disorder, single episode, unspecified; E78.5 Hyperlipidemia, unspecified; I10 Essential (primary) hypertension; Z79.899 Other long term (current) drug therapy; Z74.1 Need for assistance with personal care; G93.89 Other specified disorders of brain
CPT/HCPCS: 36415; 70450; 71045; 71250; 80053; 81001; 82140; 82803; 83735; 84484; 85025; 86803; 87040; 87086; 87389; 87636; 97161; 97165; 99291; G0378; J0696; J7120

== ENCOUNTER 2024-06-16 15:06 | Outpatient (CLI) | payer MEDICARE, SELFPAY ==
--- NOTE | 2024-06-16 15:24 | CT_ITS ---
FINAL REPORT TECHNIQUE: Axial images through the abdomen and pelvis was performed with and without contrast. Sagittal and coronal reformatted images were obtained and reviewed. This study was performed with techniques to keep radiation doses as low as reasonably achievable (ALARA). Individualized dose reduction techniques using automated exposure control or adjustment of mA and/or kV according to the patient's size were employed. CLINICAL HISTORY: DIVERTICULITIS COMPARISON: 04/30/2024 FINDINGS: The lung bases are clear. The liver parenchyma is homogeneous. The gallbladder is distended. The spleen is unremarkable. The adrenals are normal. The pancreas is unremarkable. There is a benign-appearing cyst in the posterior right kidney measuring 2.7 cm in greatest dimension. Precontrast images demonstrate no nephrolithiasis. The appendix is unremarkable. There are scattered diverticuli throughout the descending and sigmoid colon. The urinary bladder is normal. There is no free fluid or adenopathy. There are advanced changes of degenerative disc disease at T12-L1. There is grade 1 spondylolisthesis of L4 on 5. Stable sclerotic lesion is seen in the left sacral ala. IMPRESSION: Diverticulosis without evidence of diverticulitis, stable from previous. Reviewed, Interpreted and Dictated by Barry Reeves MD Transcribed by Veronica Velazquez Authenticated and [facility]
[2024-06-16] MEDS: IOPAMIDOL-370 (76%);100ML BOTTLE 75 ML IV (15:53)
[2024-06-16] MEDS: SODIUM CHLORIDE 0.9% 10ML SYR (RAD ONLY) 10 ML IV (15:53)
== END 2024-06-16 23:59 | disposition home or self-care (01) ==
LOC: RAD 15:08
PROVIDERS: PCP Nurse Practitioner; Visit Provider Nurse Practitioner
DX: K57.92 Diverticulitis of intestine, part unspecified, without perforation or abscess without bleeding (principal)
CPT/HCPCS: 74178; Q9967

== ENCOUNTER 2024-06-21 10:02 | Outpatient (CLI) | payer MEDICARE, SELFPAY ==
[2024-06-21 12:12] LABS: Blood Urea Nitrogen 12 mg/dl (7-17); Estimated Glomerular Filt Rate 44 ml/min (>60); GFR (African American) 53 ML/MIN (>60)
== END 2024-06-21 23:59 | disposition home or self-care (01) ==
LOC: LAB 10:05
PROVIDERS: PCP Nurse Practitioner; Visit Provider Urology
DX: N32.81 Overactive bladder (principal); N39.0 Urinary tract infection, site not specified; R31.9 Hematuria, unspecified
CPT/HCPCS: 36415; 82565; 84520

== ENCOUNTER 2024-06-23 09:44 | Outpatient (CLI) | payer MEDICARE, SELFPAY ==
--- NOTE | 2024-06-23 09:48 | NM_ITS ---
FINAL REPORT CLINICAL HISTORY: Abdominal pain FINDINGS: Sequential anterior projection images of the abdomen were obtained after the intravenous injection of 8.49 mCi technetium 99m Choletec. There is normal uptake of radiotracer by the liver. The bile ducts and bile are visualized by 5 minutes. The gallbladder is not visualized. Findings are worrisome for cholecystitis. After 1 hour, 1.3 ?g of CCK was injected intravenously for calculation of gallbladder ejection fraction. Gallbladder ejection fraction was unable to be calculated due to nonvisualization of the gallbladder. IMPRESSION: Findings concerning for cholecystitis. Reviewed, Interpreted and Dictated by Puma Silverio III, MD Transcribed by Snehal Howell Authenticated and [facility]
[2024-06-23] MEDS: SODIUM CHLORIDE 0.9% 10ML SYR (RAD ONLY) 10 ML IV (10:30)
[2024-06-23] MEDS: SINCALIDE 1.3 MCG in 0.9 % SODIUM CHLORIDE 50 ML 100 MCG IV (11:10)
[2024-06-23] MEDS: ISOTOPE CHOLETECH;1 DOSE (UP TO 15 MCI) IV (12:17)
== END 2024-06-23 23:59 | disposition home or self-care (01) ==
LOC: RAD 09:45
PROVIDERS: PCP Nurse Practitioner; Visit Provider Nurse Practitioner
DX: K81.9 Cholecystitis, unspecified (principal)
CPT/HCPCS: 78227; A9537; J2805

== ENCOUNTER 2024-06-25 09:20 | Outpatient (CLI) | payer MEDICARE, SELFPAY ==
[2024-06-25 09:50] VITALS: BP 138/61; PULSE 54; RESP 17; O2SAT 99
[2024-06-25] MEDS: 0.9 % SODIUM CHLORIDE 1000ML 2,000 ML 999 ML IV (09:50)
[2024-06-25 10:50] VITALS: BP 138/68; PULSE 58; RESP 16
[2024-06-25 11:50] VITALS: BP 144/63; PULSE 60; RESP 17
== END 2024-06-25 12:00 | disposition home or self-care (01) ==
LOC: INF 09:23
PROVIDERS: PCP Nurse Practitioner; Visit Provider Nurse Practitioner
DX: E86.0 Dehydration (principal)
CPT/HCPCS: 96360; 96361; J7030

== ENCOUNTER 2024-07-02 08:06 | Day surgery (SDC) | payer MEDICARE, SELFPAY ==
[2024-06-30 13:04] VITALS: BMI 25.6
[2024-07-02 08:21] VITALS: BP 151/68; PULSE 61; RESP 18; TEMP 36.7; O2SAT 96
--- NOTE | 2024-07-02 08:54 | HMH.PROCNOTE ---
[facility] Procedure Note Date: 07/02/24 Time: 08:54 Procedure Note:: Chart review: Patient is here to evaluate for microscopic hematuria. She had 50 red cells per high-powered field. Her CT scan with infusion shows a stable right renal cyst. Her most current serum creatinine is 1.2 on 07/08. Preop diagnosis: hematuria/UTI Postop diagnosis: hematuria/UTI Op Note: Patient was brought to the operating room. She is prepped and draped in the usual fashion. She underwent flexible cystoscopy. She has minimal urethritis. The patient's bladder is smooth, and free of stone tumor hemorrhage or infection. The ureteral orifices are in normal location with clear E flux of urine. She tolerated the procedure well.
[2024-07-02 08:58] VITALS: BP 151/77; BP 155/71; PULSE 60; RESP 18; TEMP 36.6; TEMP 37.1; O2SAT 99
[2024-07-02 13:43] LABS: Microscopic,Cath URINE MICROSCOPIC (MICROSCOPIC)
[2024-07-02 14:16] LABS: Appearance,Urine/Cath CLEAR (Clear); Bilirubin,Cath Negative (Negative); Blood, Urine/Cath TRACE-I (Negative); Color,Urine/Cath YELLOW (Yellow); Glucose,Urine/Cath (UA) Negative (Negative); Ketones,Urine/Cath Negative (Negative); Leukocyte Esterase,Cath Negative (Negative); Nitrate,Cath Negative (Negative); Protein,Urine/Cath Negative (Negative); Urobilinogen,Cath 0.2 EU/dl (0.2)
[2024-07-02 14:44] LABS: Mucus,Urine/Cath 1+ /lpf; Squamous Epithelial Ur./Cath Occasional #/hpf (0-5)
== END 2024-07-02 09:07 | disposition home or self-care (01) ==
PROVIDERS: PCP Nurse Practitioner; Visit Provider Urology
PROC: 0TJB8ZZ Inspection of Bladder, Via Natural or Artificial Opening Endoscopic (ICD-10-PCS; CPT 52000; principal; 2024-07-02 09:15)
DX: R31.9 Hematuria, unspecified (principal); N28.1 Cyst of kidney, acquired; N39.0 Urinary tract infection, site not specified; R31.29 Other microscopic hematuria
CPT/HCPCS: 52000; 81001

== ENCOUNTER 2024-07-27 10:29 | Emergency (ER) | payer MEDICARE, SELFPAY ==
[2024-07-27] VITALS (8 sets, daily range): BP systolic 140–170; BP diastolic 70–108; PULSE 58–77; RESP 16–18; TEMP 36.7–36.8; O2SAT 95–98; BMI 25.6
--- NOTE | 2024-07-27 10:40 | ECG_ITS ---
APPROVED REPORT Exam: Resting ECG HR:59 bpm ECG Measurements Heart Rate 59 AXES DE 165 P 60 QRSd 94 QRS 53 QT 409 T 104 QTc 408 Conclusion SINUS BRADYCARDIA T wave inversions 1 and aVL without reciprocal change Electronically signed by : CLARY MANN, 07/28/2024 08:22:28
--- NOTE | 2024-07-27 10:48 | XR_ITS ---
FINAL REPORT CLINICAL HISTORY: ams, aphasia FINDINGS: SINGLE VIEW CHEST The heart is normal in size. The mediastinum is unremarkable. There is mild atelectasis or scar in the right lung base. There are postoperative changes in the lower cervical spine. There is no pneumothorax. IMPRESSION: Right lung base atelectasis versus scar. Reviewed, Interpreted and Dictated by Puma Silverio III, MD Transcribed by Veronica Velazquez Authenticated and [facility]
--- NOTE | 2024-07-27 10:48 | CT_ITS ---
FINAL REPORT TECHNIQUE: Thin section axial CT with IV contrast supplemented with multiplanar reconstruction under CT angiogram protocol. This study was performed with techniques to keep radiation doses as low as reasonably achievable (ALARA). Individualized dose reduction techniques using automated exposure control or adjustment of mA and/or kV according to the patient''s size were employed. NASCET criteria was utilized during interpretation. CLINICAL HISTORY: aphasia, confusion. otherwise neurointact FINDINGS: The right common carotid artery is normal. The right internal carotid artery is normal. There is persistent right hypoglossal artery as a variant. The vertebral arteries in the lower neck are hypoplastic. The left common carotid artery is normal. The left internal carotid artery is normal. IMPRESSION: Right hypoglossal artery as a variant. No evidence of stenosis or occlusion. Reviewed, Interpreted and Dictated by Puma Silverio III, MD Transcribed by Veronica Velazquez Authenticated and [facility]
--- NOTE | 2024-07-27 10:48 | CT_ITS ---
FINAL REPORT TECHNIQUE: Thin section axial CT with IV contrast supplemented with multiplanar reconstruction under CT angiogram protocol. 3-D reconstructions were performed. This study was performed with techniques to keep radiation doses as low as reasonably achievable (ALARA). Individualized dose reduction techniques using automated exposure control or adjustment of mA and/or kV according to the patient''s size were employed. CLINICAL HISTORY: aphasia, confusion. otherwise neurointact FINDINGS: The bilateral anterior cerebral and middle cerebral arteries are patent. There is moderate stenosis of the P1 segment of the right posterior cerebral artery. The basilar artery is patent. IMPRESSION: There is no evidence of aneurysm or major branch occlusion. Moderate stenosis right P1 segment of the right [employer]. Reviewed, Interpreted and Dictated by Puma Silverio III, MD Transcribed by Veronica Velazquez Authenticated and [facility]
--- NOTE | 2024-07-27 10:48 | CT_ITS ---
FINAL REPORT CLINICAL HISTORY: aphasia, confusion. otherwise neurointact COMPARISON: 06/08/2024 FINDINGS: Axial images of the head were obtained without contrast. Coronal reformatted images were also obtained. This study was performed with techniques to keep radiation doses as low as reasonably achievable (ALARA). Individualized dose reduction techniques using automated exposure control or adjustment of mA and/or kV according to the patient's size were employed. Motion artifact is identified on many of the images. There is generalized age-appropriate atrophy. Periventricular low-attenuation areas are seen consistent with moderate chronic ischemic changes. There is no evidence of intracranial hemorrhage or mass. There is no evidence of acute infarct. There is no evidence of shift of the midline structures. No skull abnormality is seen on the bone window images. IMPRESSION: Atrophy and moderate periventricular chronic ischemic changes. No acute intracranial abnormality identified. Reviewed, Interpreted and Dictated by Puma Silverio III, MD Transcribed by Veronica Velazquez Authenticated and . [facility]
--- NOTE | 2024-07-27 10:55 | PC.NURSE ---
Manual Blood Pressure at this time is 142/76.
[2024-07-27 10:57] LABS: Microscopic, Urine URINE MICROSCOPIC (MICROSCOPIC)
[2024-07-27 10:59] LABS: Basophils # 0.1 K/mm3 (0-0.2); Basophils % 2.3 % (0.1-2.0); Eosinophils # 0.1 K/mm3 (0.0-0.4); Eosinophils % 2.6 % (0.1-12.0); Hematocrit 41.8 % (37.0-47.0); Hemoglobin 14.6 g/dL (12.2-16.2); Lymphocytes # 2.2 K/mm3 (0.7-4.5); Lymphocytes % 39.6 % (10-50); Mean Corpuscular HGB Conc 34.9 g/dL (31.8-35.4); Mean Corpuscular Hemoglobin 32.8 pg (27.0-31.2); Mean Corpuscular Volume 94.3 fl (81-99); Mean Platelet Volume 7.3 fl (7.4-10.4); Monocytes # 0.5 K/mm3 (0.1-1.0); Monocytes % 8.6 % (1.7-9.3); Neutrophils # 2.6 K/mm3 (1.8-7.8); Neutrophils % 46.9 % (37.0-80.0); Platelet Count 209 K/mm3 (142-424); Red Blood Count 4.43 M/mm3 (4.20-5.40); White Blood Count 5.5 K/mm3 (4.8-10.8)
[2024-07-27 11:02] LABS: Appearance,Urine CLEAR (Clear); Bilirubin,Urine Negative (Negative); Blood, Urine 1+ (Negative); Color,Urine YELLOW (Yellow); Glucose,Urine (UA) Negative (Negative); Ketones,Urine Negative (Negative); Leukocyte Esterase,Urine Negative (Negative); Nitrate,Urine Negative (Negative); PH,Urine 6.5 (5.0-8.5); Protein,Urine Negative (Negative); Specific Gravity, Urine 1.015 (1.005-1.030); Urobilinogen,Urine 0.2 EU/dl (0.2)
[2024-07-27 11:06] LABS: Alanine Aminotransferase 21 U/L (12-78); Albumin Level 4.5 g/dl (3.5-5.0); Albumin/Globulin Ratio 1.5 (1.1-1.8); Alkaline Phosphatase 53 U/L (38-126); Aspartate Amino Transferase 36 U/L (14-36); Bilirubin,Total 0.9 mg/dl (0.2-1.3); Blood Urea Nitrogen 17 mg/dl (7-17); Calcium 9.5 mg/dl (8.4-10.2); Carbon Dioxide 31 mmol/L (22.0-30.0); Chloride 102 mmol/L (98-107); Chol/HDL Ratio 3.5 (1-3.5); Cholesterol 225 mg/dl (140-200); Creatinine Clearance Estimated 46 mL/min (50-200); Estimated Glomerular Filt Rate 49 ml/min (>60); GFR (African American) 59 ML/MIN (>60); Glucose 80 mg/dl (74-100); HDL Cholesterol 65 mg/dl (40-60); Sodium 140 mmol/L (136-145); Total Protein,Serum 7.5 g/dl (6.3-8.2); Triglycerides 99 mg/dl (30-150); VLDL Cholesterol 20 mg/dL (0-40)
[2024-07-27 11:08] LABS: Bacteria,Urine Trace /lpf; Squamous Epithelial Cell,Urine Occasional #/hpf (0-5)
--- NOTE | 2024-07-27 11:10 | ED_ITS ---
Discharge Plan Disposition Patient Disposition: Home, Self-Care Prescriptions Prescriptions: No Action escitalopram oxalate 10 mg tablet 10 mg PO DAILY pravastatin 40 mg tablet 40 mg PO DAILY lorazepam 1 mg tablet 1 mg PO DAILY PRN lamotrigine 25 mg tablet 25 mg PO DAILY MDD 50 mg 30 Days Qty: 60 3RF Rx Instructions: 25 mg po qhs x 2 weeks then 50 mg po qhs estradiol 0.01 % (0.1 mg/gram) cream See Rx Instructions vaginal .COMPLEX Qty: 42.5 2RF Rx Instructions: Using finger technique daily for two weeks and then twice weekly vaginally; amlodipine-benazepril 5-20 mg capsule 1 cap PO DAILY Patient Comments: TAKE 1 CAPSULE BY MOUTH ONCE DAILY memantine 14 mg capsule,sprinkle,ER 24hr 14 mg PO DAILY Patient Comments: TAKE 1 CAPSULE BY MOUTH DAILY bupropion HCl 100 mg tablet sustained-release 12 hr 100 mg PO BID quetiapine 25 mg tablet 25 mg PO HS Patient Comments: TAKE 1 TABLET BY MOUTH DAILY AT BEDTIME ondansetron HCl 4 mg tablet 4 mg PO DAILY PRN (Reason: Nausea) Patient Comments: TAKE 1 TABLET BY MOUTH DAILY Probiotic 5 billion cell Capsule, Sprinkle 1 cap PO HS Referrals Follow up/Referrals: Jessie Randall APRN [Primary Care Provider] - See instructions Activity Restrictions/Add. Instructions Additional Instructions/Restrictions: Call your family doctor to establish care for this visit to the emergency department and schedule follow-up within 48 hours to ensure improvement. If you have any worsening of your condition or any other concerning signs or symptoms, return to the emergency department or your primary care doctor for further evaluation. Talk to family doctor about doing neurocognitive testing for mental and functional decline in the office and trending this over time. Also talk to family doctor about obtaining MRI to determine if underlying source or cause of dementia cannot be delineated on further imaging. Clinical Impressions Clinical Impression: Mood swings, Acute confusion, Delirium Instructions Patient Instructions: DI for Altered Mental Status Print Language Print Language: Welsh Discharge ED Provider: Sanford Zhao General Adult HPI General Chief complaint: Altered Mental Status Stated complaint: sudden confusion, slurred speech, wobbly Time Seen by Provider: 07/27/24 10:37 Mode of Arrival: Ambulatory Source of Information: Patient and Relative Limitations: Altered Mental Status Description of Symptoms (Recalled from ER Triage Doc. by RN): confusion, slurred speech,urinary symptoms. History of Present Illness HPI narrative: Please note that above description of symptoms, in this electronic medical record under categorization of recalled from ER triage doctor by RN are reflective of an initial nursing assessment, however, is not reflective of my full history and physical exam that was personally taken and clarified. Consequentially, this preceding description of symptoms, which may include the patient's categorized chief complaint in the EMR, do not reflect my personal clinical impression, and the ultimate description of history of present illness and patient stated complaints should be deferred to this section of the note. Unless stated otherwise or congruent with this section of the note, additional signs, symptoms, or incongruence should be interpreted as inaccurate with my clinical impression. Related Data Home Medications ?Medication ?Instructions ?Recorded ?Confirmed amlodipine 5 mg-benazepril 20 mg 1 cap PO DAILY 01/28/24 07/09/24 capsule memantine 14 mg capsule 14 mg PO DAILY 01/28/24 07/09/24 sprinkle,extended release 24hr escitalopram oxalate 10 mg tablet 10 mg PO DAILY 05/10/24 07/09/24 pravastatin 40 mg tablet 40 mg PO DAILY 05/10/24 07/09/24 Lactobacil.acidophilus-Bifido.animalis 1 cap PO HS 06/08/24 07/09/24 5 billion cell sprinkle capsule (Probiotic) bupropion HCl 100 mg tablet,12 hr 100 mg PO BID 06/08/24 07/09/24 sustained-release ondansetron HCl 4 mg tablet 4 mg PO DAILY PRN Nausea 06/08/24 07/09/24 quetiapine 25 mg tablet 25 mg PO HS dementia 06/08/24 07/09/24 lorazepam 1 mg tablet 1 mg PO DAILY PRN 07/09/24 07/09/24 Previous Rx's ?Medication ?Instructions ?Recorded estradiol 0.01% (0.1 mg/gram) See Rx Instructions vaginal 06/21/24 vaginal cream .COMPLEX #42.5 grams lamotrigine 25 mg tablet 25 mg PO DAILY Mood control 30 07/09/24 days #60 tabs Allergies Allergy/AdvReac Type Severity Reaction Status Date / Time Latex, Natural Rubber Allergy Intermediate Rash Verified 07/09/24 10:25 Penicillins Allergy Intermediate Rash Verified 07/09/24 10:25 Sulfa (Sulfonamide Allergy Rash Verified 07/09/24 10:25 Antibiotics) [facility] Disclaimer: The information contained in this section may have been updated after the patient was seen, as this information can be updated by other users. Medical History (Updated 07/27/24 @ 14:15 by Sanford Zhao MD) Urinary tract infection Memory loss Fixation hardware in spine Fixation hardware in foot Hyperlipemia Hypertension Surgical History (Updated 07/09/24 @ 10:31 by Beatriz Li) History of cholecystectomy History of hysterectomy Family History Other No significant family history Social History Smoking Status: Never smoker alcohol intake: never substance use type: denies use current occupational status: retired Travel in the last 8 weeks: None Other Medical History Have you received the Flu Vaccine for this season: No Have you received the Pneumonia Vaccine: No ROS Obtained: Yes All systems reviewed & no additional complaints except as documented Physical Exam General General appearance: alert and in no apparent distress Head Head exam: atraumatic and normocephalic Eye Eye exam: Present normal appearance, PERRL and EOMI ENT ENT exam: Present other (No evidence of facial droop) Neck Neck exam: Present normal inspection, full ROM and trachea midline Respiratory Respiratory exam: Present normal lung sounds bilaterally; Absent respiratory distress, wheezes, stridor, accessory muscle use or prolonged expiratory phase Cardiovascular Cardiovascular exam: Present regular rate, normal rhythm, normal heart sounds and other (Pulses equal symmetric in upper and lower extremities) Abdominal Exam Abdominal exam: Present soft; Absent distention, tenderness, guarding, rebound, rigidity or pulsatile mass Extremities Exam Extremities exam: Absent edema Neurological Exam Neurological exam: Present alert, CN II-XII intact (Inappropriate responses, but patient following commands and no slurred speech), normal gait (Ambulated in to the hospital) and other (Cerebellar exam within normal limits); Absent motor sensory deficit Skin Skin exam: Present warm and dry; Absent diaphoresis or erythema Medical Decision Making Medical Records Medical records reviewed: Yes I reviewed the patient's medical records. Screening: Per USPSTF and CDC recommendations, given the prevalence of disease in our region, it is our hospital?s policy to screen for HIV and viral Hepatitis for all patients aged 18 and over and those with ongoing risk factors. [place] Inquiry Pt receiving controlled substance: No [place] was queried for this patient: No Vital Signs: 07/27/24 10:30 07/27/24 11:00 07/27/24 12:00 Temperature 98.2 F Temperature Source Oral Pulse Rate 58 L 63 Pulse Rate [Right] 62 Respiratory Rate 18 Blood Pressure 140/72 154/78 H Blood Pressure [Right Arm] 158/82 H Blood Pressure Mean 103 Blood Pressure Mean [Right Arm] 107 02 Sat by Pulse Oximetry 95 98 96 Oxygen Delivery Method Room Air 07/27/24 12:34 07/27/24 13:01 07/27/24 13:49 Temperature Temperature Source Pulse Rate 64 77 67 Pulse Rate [Right] Respiratory Rate Blood Pressure 168/70 H 170/77 H 146/81 H Blood Pressure [Right Arm] Blood Pressure Mean 125 110 105 Blood Pressure Mean [Right Arm] 02 Sat by Pulse Oximetry 98 97 98 Oxygen Delivery Method 07/27/24 14:00 Temperature Temperature Source Pulse Rate 67 Pulse Rate [Right] Respiratory Rate Blood Pressure 155/108 H Blood Pressure [Right Arm] Blood Pressure Mean 123 Blood Pressure Mean [Right Arm] 02 Sat by Pulse Oximetry 98 Oxygen Delivery Method Lab Data Lab Results 07/27/24 10:40: WBC 5.5, RBC 4.43, Hgb 14.6, Hct 41.8, MCV 94.3, MCH 32.8 H, MCHC 34.9, RDW 13.0, Plt Count 209, MPV 7.3 L, Neut % (Auto) 46.9, Lymph % (Auto) 39.6, Butts % (Auto) 8.6, Eos % (Auto) 2.6, Baso % (Auto) 2.3 H, Neut # (Auto) 2.6, Lymph # (Auto) 2.2, Butts # (Auto) 0.5, Eos # (Auto) 0.1, Baso # (Auto) 0.1, PT 10.9, INR 0.97, APTT 26.2, Sodium 140, Potassium 4.0, Chloride 102, Carbon Dioxide 31 H, Anion Gap 11.0, BUN 17, Creatinine 1.10 H, Estimated Creat Clear 46, Estimated GFR 49 L, Est GFR ( Amer) 59, Glucose 80, Calcium 9.5, Total Bilirubin 0.9, AST 36, ALT 21, Alkaline Phosphatase 53, Troponin I < 0.01, Total Protein 7.5, Albumin 4.5, Globulin 3.0, Albumin/Globulin Ratio 1.5, Triglycerides 99, Cholesterol 225 H, LDL Cholesterol Direct 130.93 H, VLDL Cholesterol 20, HDL Cholesterol 65 H, Cholesterol/HDL Ratio 3.5, Plasma/Serum Alcohol < 10 07/27/24 10:50: Urine Color Yellow, Urine Appearance Clear, Urine pH 6.5, Ur Specific [place] 1.015, Urine Protein Negative, Urine Glucose (UA) Negative, Urine Ketones Negative, Urine Blood 1+ A, Urine Nitrate Negative, Urine Bilirubin Negative, Urine Urobilinogen 0.2, Ur Leukocyte Esterase Negative, Urine RBC 3-5, Urine WBC None, Ur Squamous Epith Cells Occasional, Urine Bacteria Trace, Urine Opiates Screen Negative, Urine Methadone Screen Negative, Ur Barbituates Screen Negative, Ur Phencyclidine Scrn Negative, Ur Amphetamines Screen Negative, U Benzodiazepines Scrn Negative, Urine Cocaine Screen Negative, U Marijuana (THC) Screen Negative 07/27/24 10:40 07/27/24 10:40 Orders (Tests/Meds): ED MEDICATIONS Generic Name Dose Route Start Last Admin Trade Name Freq PRN Reason Stop Dose Admin Sodium Chloride 10 ml 07/27/24 10:48 Sodium Chloride 0.9% 10ml Flush Syringe IV 08/26/24 10:47 NEEDED PRN Maintain IV Site Discontinued Medications Generic Name Dose Route Start Last Admin Trade Name Freq PRN Reason Stop Dose Admin Iopamidol 80 ml 07/27/24 11:32 07/27/24 11:33 Iopamidol-370 (76%);100ml Bottle IV 07/27/24 11:33 80 ml ONCE ONE Administration Sodium Chloride 10 ml 07/27/24 11:32 07/27/24 11:33 Sodium Chloride 0.9% 10ml Syr (Rad Only) IV 07/27/24 11:33 10 ml ONCE ONE Administration Sodium Chloride 50 ml 07/27/24 11:32 07/27/24 11:33 0.9 % Sodium Chloride 50 Ml Vial IV 07/27/24 11:33 50 ml ONCE ONE Administration ORDERS Category Date Time Status CT angio head Stat Cat Scan 07/27/24 10:[address] angio neck Stat Cat Scan 07/27/24 10:[address] head/brain wo con Stat Cat Scan 07/27/24 10:48 Completed XR chest portable Stat Exams 07/27/24 10:48 Completed Activated Partial Thrombo Time Stat Lab 07/27/24 10:40 Completed Complete Blood Count Auto Diff Stat Lab 07/27/24 10:40 Completed Comprehensive Metabolic Panel Stat Lab 07/27/24 10:40 Completed Drug Screen,Urine Stat Lab 07/27/24 10:50 Completed Ethyl Alcohol Stat Lab 07/27/24 10:40 Completed Lipid Panel Stat Lab 07/27/24 10:40 Completed Prothrombin Time INR Stat Lab 07/27/24 10:40 Completed Troponin I Q3H Lab 07/27/24 14:00 Ordered Troponin I Q3H Lab 07/27/24 17:00 Ordered Troponin I Stat Lab 07/27/24 10:40 Completed Urinalysis and Microscopic Stat Lab 07/27/24 10:50 Completed Medical Decision Narrative: 74-year-old female history of hypertension, hyperlipidemia, Alzheimer's dementia, multiple pin strokes, dizziness recently started on lamotrigine presenting with change from baseline. Daughter states that yesterday, 07/26 around 2 PM, patient began acting differently. Daughter states that she thought patient was ing early, and did not think anything of it at that time. Today, patient's daughter states that patient woke up, walking, but acting confused. States that she was crying for an hour and 1/2 to 2 hours earlier today because she could not find her parents, and was having panic attack. Patient daughter also states that patient has not been answering questions appropriately and is usually conversational and able to answer questions without issue. No weakness, falling to 1 side, but patient's daughter also feels that patient has slurred speech. Went to see psychiatrist earlier today and psychiatrist recommended she come to the emergency department for further evaluation. Patient has no complaints on arrival and is very well- appearing. History was obtained via conversation with patient's daughter largely. On arrival, patient hemodynamically stable, alert, oriented to person, [appropriate, ]GCS [15], moving all extremities spontaneously, pupils equal and reactive to light. Full physical exam performed and significant for very well- appearing female no acute distress. Tangential speech with inappropriate responses. Patient has normal cardiopulmonary exam with no murmurs gallops rubs, lungs are clear bilaterally, belly soft, nontender, nondistended. No lower extremity edema. Pulses equal and symmetric in upper and lower extremities. Neurologically, cranial nerves are intact other than confused speech. No facial droop, difficult to discern whether patient is confused or having aphasia. No obvious dysarthria. Motor, sensory, cerebellar exam intact. No evidence of clonus. Differential includes metabolic encephalopathy, infectious, UTI, pneumonia, delirium, ACS, [place], CVA, among others. Patient placed on continuous cardiac monitoring and continuous pulse ox with initial blood pressure 158/82, heart rate 62, saturation 95% on room air. [Independent interpretation of EKG shows] sinus bradycardia 59 bpm. T wave inversions in 1 and aVL, no reciprocal elevations. NC 165, QRS 94, QTc 408. Normal axis. Patient was given water p.o. for symptomatic management[ and correction of underlying abnormalities]. Workup independently interpreted and significant for nonactionable CBC or chemistry. Coags normal. Troponin negative. Urinalysis without concern for UTI. Tox labs negative. On independent interpretation of imaging, no acute intracranial hemorrhage. No acute CVA. See radiology read for full review of final results. On reevaluation, patient's speech improved, per myself and family. Speaking in full sentences. Abundance of reassurance was offered. Recommend she follow-up with her family doctor for neurocognitive testing as well as MRI. Family voiced understanding. Given patient presentation, workup, history, this most likely represents acute delirium in the setting of undifferentiated dementia. Because patient at baseline without signs or symptoms of clinical decompensation, deemed appropriate for discharge. Results were relayed to patient and family who voiced understanding and were agreeable to outpatient management and follow up. I discussed my clinical impression with patient and family and answered all questions. At this time, the evidence for any other entities in the differential is insufficient to warrant any further testing or ED observation. This was explained as well. Advisory was given that persistent or worsening symptoms require further evaluation. I confirmed the understanding of this discussion. Advanced Registered Nurse disclaimer Much of this encounter note is an electronic head banquet waiter/waitress spoken language to printed text. Electronic head banquet waiter/waitress of the spoken language may permit errors. Although I have reviewed the note, some errors may still exist. Critical Care Critical Care Time Critical Care Time: No
[2024-07-27 11:18] LABS: Direct LDL Cholesterol 130.93 mg/dL (100-129)
[2024-07-27 11:24] LABS: Amphetamine/Metha Screen,Urine Negative ng/ml (<1000); Barbiturates Screen,Urine Negative ng/ml (<200); Benzodiazepines Screen,Urine Negative ng/ml (<200); Cannabinoid Screen,Urine Negative ng/ml (<50); Cocaine Screen,Urine Negative ng/ml (<300); Methadone Screen,Urine Negative ng/ml (<300); Opiate Screen,Urine Negative ng/ml (<300); Phencyclidine Screen,Urine Negative ng/ml (<25)
[2024-07-27] MEDS: 0.9 % SODIUM CHLORIDE 50 ML VIAL IV (11:33)
[2024-07-27] MEDS: SODIUM CHLORIDE 0.9% 10ML SYR (RAD ONLY) 10 ML IV (11:33)
[2024-07-27] MEDS: IOPAMIDOL-370 (76%);100ML BOTTLE 80 ML IV (11:33)
[2024-07-27 11:34] LABS: Troponin I < 0.01 ng/ml (0.00-0.034)
[2024-07-27 11:35] LABS: Ethyl Alcohol < 10 mg/dl (0-10)
[2024-07-27 11:56] LABS: Activated Partial Thrombo Time 26.2 seconds (22.8-30.6); INR 0.97 (0.9-1.1); Prothrombin Time 10.9 seconds (10.1-12.5)
== END 2024-07-27 14:43 | disposition home or self-care (01) ==
PROVIDERS: Emergency Provider Emergency Medicine; PCP Nurse Practitioner
DX: R41.82 Altered mental status, unspecified (principal)
CPT/HCPCS: 70450; 70496; 70498; 71045; 80053; 80061; 80307; 80320; 81001; 84484; 85025; 85610; 85730; 93005; 99285; G0480; Q9967

== ENCOUNTER 2024-08-09 16:45 | Outpatient (CLI) | payer MEDICARE, SELFPAY | END 2024-08-09 23:59 | disposition home or self-care (01) | LOC: RAD 16:46 | PROVIDERS: PCP Nurse Practitioner; Visit Provider Nurse Practitioner | DX: G45.9 Transient cerebral ischemic attack, unspecified (principal) ==

== ENCOUNTER 2024-08-20 16:13 | Outpatient (CLI) | payer MEDICARE, SELFPAY ==
--- NOTE | 2024-08-20 16:20 | MR_ITS ---
PROCEDURE INFORMATION: Exam: MR Head Without Contrast Exam date and time: 08/20/2024 4:45 PM Age: 74 years old Clinical indication: Altered mental status/memory loss; Additional info: Dementia TECHNIQUE: Imaging protocol: Magnetic resonance imaging of the head without contrast. COMPARISON: CT ANGIO HEAD 07/27/2024 11:32 AM FINDINGS: Brain: Confluent and focal areas of T2 prolongation within the periventricular and subcortical white matter of the supratentorial brain without restricted diffusion. No intra- or extra-axial mass or abnormality and no abnormal enhancement. No mass effect or midline shift. Cerebral ventricles: Ventricles and sulci are mildly dilated without evidence of hydrocephalus. Bones: Chronic degenerative changes in the visualized upper cervical spine. Hyperostosis frontalis interna. Paranasal sinuses: Mild chronic mucoperiosteal thickening in the visualized paranasal sinuses. Mastoid air cells: No mastoid effusion. Orbital cavities: NA Soft tissues: Midline brain structures including the corpus callosum, pituitary gland, pineal region, and craniovertebral junction are unremarkable. Intracranial vessels demonstrate a normal flow-void. IMPRESSION: 1. No acute hemorrhagic or ischemic infarct. 2. Mild chronic microvascular ischemic disease and generalized age appropriate atrophy.
== END 2024-08-20 23:59 | disposition home or self-care (01) ==
LOC: RAD 16:15
PROVIDERS: PCP Nurse Practitioner; Visit Provider Nurse Practitioner
DX: G45.9 Transient cerebral ischemic attack, unspecified (principal); F03.90 Unspecified dementia, unspecified severity, without behavioral disturbance, psychotic disturbance, mood disturbance, and anxiety
CPT/HCPCS: 70551

== ENCOUNTER 2024-08-26 14:49 | Observation (INO) | payer MEDICARE, SELFPAY ==
[2024-08-26] VITALS (8 sets, daily range): BP systolic 141–171; BP diastolic 70–83; PULSE 63–72; RESP 14–19; TEMP 36.6–36.9; O2SAT 95–99; BMI 26.4; BMI 26.2
--- NOTE | 2024-08-26 15:01 | HMH.EDGENADL ---
Discharge Plan Disposition Patient Disposition: Admitted Chief Complaint: Altered Mental Status Prescriptions Prescriptions: No Action escitalopram oxalate 10 mg tablet 10 mg PO DAILY pravastatin 40 mg tablet 40 mg PO DAILY lorazepam 1 mg tablet 1 mg PO DAILY PRN lamotrigine 25 mg tablet 25 mg PO DAILY MDD 50 mg 30 Days Qty: 60 3RF Rx Instructions: 25 mg po qhs x 2 weeks then 50 mg po qhs estradiol 0.01 % (0.1 mg/gram) cream See Rx Instructions vaginal .COMPLEX Qty: 42.5 2RF Rx Instructions: Using finger technique daily for two weeks and then twice weekly vaginally; amlodipine-benazepril 5-20 mg capsule 1 cap PO DAILY Patient Comments: TAKE 1 CAPSULE BY MOUTH ONCE DAILY memantine 14 mg capsule,sprinkle,ER 24hr 14 mg PO DAILY Patient Comments: TAKE 1 CAPSULE BY MOUTH DAILY bupropion HCl 100 mg tablet sustained-release 12 hr 100 mg PO BID quetiapine 25 mg tablet 25 mg PO HS Patient Comments: TAKE 1 TABLET BY MOUTH DAILY AT BEDTIME ondansetron HCl 4 mg tablet 4 mg PO DAILY PRN (Reason: Nausea) Patient Comments: TAKE 1 TABLET BY MOUTH DAILY Probiotic 5 billion cell Capsule, Sprinkle 1 cap PO HS Referrals Follow up/Referrals: Jessie Randall APRN [Primary Care Provider] - See instructions Clinical Impressions Clinical Impression: Suicidal ideation Instructions Patient Instructions: DI for Altered Mental Status Print Language Print Language: B[place] Discharge ED Provider: Opal Portillo General Adult HPI <DON Ayala - Last Filed: 08/26/24 20:58> General Chief complaint: Altered Mental Status Stated complaint: confusion Time Seen by Provider: 08/26/24 15:00 History of Present Illness HPI narrative: Patient presents for reported suicidal ideation and altered mental status. Patient carries a diagnosis of Alzheimer's dementia and also other psychiatric disturbances. She has been evaluated fully from a neurologic standpoint within the last 30 days including CTAs of the head neck as well as an MRI. She has been seen both by behavioral health and neurology in that time span. Reportedly she was at her baseline over the last 2 days but today had a sudden decompensation where she got into a disagreement with her [id number] and stated that she was going to go kill her self as an excited utterance. She did not however have a plan or attempt to harm herself. But she did push her [id number] out of the way in order to go achieve that goal full. Otherwise there is no other acute changing factors including no fever chills hemoptysis hematochezia melena nausea vomiting diarrhea. Related Data Home Medications ?Medication ?Instructions ?Recorded ?Confirmed amlodipine 5 mg-benazepril 20 mg 1 cap PO DAILY 01/28/24 08/05/24 capsule memantine 14 mg capsule 14 mg PO DAILY 01/28/24 08/05/24 sprinkle,extended release 24hr escitalopram oxalate 10 mg tablet 10 mg PO DAILY 05/10/24 08/05/24 pravastatin 40 mg tablet 40 mg PO DAILY 05/10/24 08/05/24 Lactobacil.acidophilus-Bifido.animalis 1 cap PO HS 06/08/24 08/05/24 5 billion cell sprinkle capsule (Probiotic) bupropion HCl 100 mg tablet,12 hr 100 mg PO BID 06/08/24 08/05/24 sustained-release ondansetron HCl 4 mg tablet 4 mg PO DAILY PRN Nausea 06/08/24 08/05/24 quetiapine 25 mg tablet 25 mg PO HS dementia 06/08/24 08/05/24 lorazepam 1 mg tablet 1 mg PO DAILY PRN 07/09/24 08/05/24 Previous Rx's ?Medication ?Instructions ?Recorded estradiol 0.01% (0.1 mg/gram) See Rx Instructions vaginal 06/21/24 vaginal cream .COMPLEX #42.5 grams lamotrigine 25 mg tablet 25 mg PO DAILY Mood control 30 07/09/24 days #60 tabs Allergies Allergy/AdvReac Type Severity Reaction Status Date / Time Latex, Natural Rubber Allergy Intermediate Rash Verified 07/09/24 10:25 Penicillins Allergy Intermediate Rash Verified 07/09/24 10:25 Sulfa (Sulfonamide Allergy Rash Verified 07/09/24 10:25 Antibiotics) [facility] <DON Ayala - Last Filed: 08/26/24 20:58> [facility] Disclaimer: The information contained in this section may have been updated after the patient was seen, as this information can be updated by other users. Medical History (Updated 08/26/24 @ 21:22 by Opal Portillo MD) Urinary tract infection Memory loss Fixation hardware in spine Fixation hardware in foot Hyperlipemia Hypertension Surgical History (Updated 07/09/24 @ 10:31 by Beatriz Li) History of cholecystectomy History of hysterectomy Family History Other No significant family history Social History Smoking Status: Never smoker alcohol intake: never substance use type: denies use current occupational status: retired Travel in the last 8 weeks: None Have you lived/traveled outside [place] in past 30 days?: No Contact w/someone who lives/traveled outside US past 30 days?: No Exposure to someone with infectious disease in past 14 days?: No Do you have a fever (greater than 100.4 F or 38 C)?: No Have you tested positive for COVID-19: No Exposed to someone with COVID-19 in past 14 days?: No Do you have a sore throat?: No Do you have a cough?: No Do you have any weakness?: No Do you have any diarrhea?: No Are you experiencing any unusual bleeding?: No Do you have any muscle aches/pain?: No Do you have any abdominal pain?: No Are you experiencing loss of taste or smell?: No Other Medical History Have you received the Flu Vaccine for this season: No Have you received the Pneumonia Vaccine: No <DON Ayala - Last Filed: 08/26/24 20:58> ROS Obtained: Yes Systems reviewed as appropriate & no additional complaints except as documented Physical Exam <DON Ayala - Last Filed: 08/26/24 20:58> General General appearance: alert and in no apparent distress Respiratory Respiratory exam: Present normal lung sounds bilaterally Cardiovascular Cardiovascular exam: Present regular rate Neurological Exam Neurological exam: Present alert and oriented X3 Medical Decision Making <DON Ayala - Last Filed: 08/26/24 20:58> Medical Records Medical records reviewed: Yes I reviewed the patient's medical records. Screening: Per USPSTF and CDC recommendations, given the prevalence of disease in our region, it is our hospital?s policy to screen for HIV and viral Hepatitis for all patients aged 18 and over and those with ongoing risk factors. [place] Inquiry Pt receiving controlled substance: No Vital Signs: 08/26/24 14:50 08/26/24 15:55 08/26/24 16:30 Temperature 98.4 F Temperature Source Oral Pulse Rate 63 68 Pulse Rate [Right] 69 Respiratory Rate 18 Blood Pressure 148/70 H 149/81 H Blood Pressure [Right Arm] 152/74 H Blood Pressure Mean 100 Blood Pressure Mean [Right Arm] 100 02 Sat by Pulse Oximetry 99 97 96 Oxygen Delivery Method Room Air Room Air 08/26/24 17:01 08/26/24 20:09 Temperature 97.9 F Temperature Source Pulse Rate 69 72 Pulse Rate [Right] Respiratory Rate Blood Pressure 141/83 H 171/81 H Blood Pressure [Right Arm] Blood Pressure Mean 102 124 Blood Pressure Mean [Right Arm] 02 Sat by Pulse Oximetry 97 95 Oxygen Delivery Method Room Air Lab Data Lab results reviewed: Yes I reviewed the patient's lab results. Lab Results 08/26/24 15:30: WBC 6.2, RBC 4.37, Hgb 14.3, Hct 39.8, MCV 91.1, MCH 32.8 H, MCHC 36.0 H, RDW 12.7, Plt Count 202, MPV 7.3 L, Neut % (Auto) 53.0, Lymph % (Auto) 36.0, [place] % (Auto) 7.8, Eos % (Auto) 1.9, Baso % (Auto) 1.2, Neut # (Auto) 3.3, Lymph # (Auto) 2.2, [place] # (Auto) 0.5, Eos # (Auto) 0.1, Baso # (Auto) 0.1, Sodium 136, Potassium 3.4 L, Chloride 104, Carbon Dioxide 30, Anion Gap 5.4, BUN 14, Creatinine 1.30 H, Estimated Creat Clear 39, Estimated GFR 40 L, Est GFR ( Amer) 49 L, Glucose 80, Calcium 9.5, Total Bilirubin 0.5, AST 41 H, ALT 27, Alkaline Phosphatase 70, Total Protein 6.8, Albumin 4.3, Globulin 2.5, Albumin/Globulin Ratio 1.7, Salicylates < 1.0 L, Acetaminophen < 10 L 08/26/24 15:36: Urine Color Yellow, Urine Appearance Clear, Urine pH 7.5, Ur Specific [place] 1.015, Urine Protein Negative, Urine Glucose (UA) Negative, Urine Ketones Negative, Urine Blood Trace-i, Urine Nitrate Negative, Urine Bilirubin Negative, Urine Urobilinogen 0.2, Ur Leukocyte Esterase Trace, Urine RBC Occasional, Urine WBC Occasional, Ur Squamous Epith Cells None, Urine Bacteria 1+, Urine Opiates Screen Negative, Urine Methadone Screen Negative, Ur Barbituates Screen Negative, Ur Phencyclidine Scrn Negative, Ur Amphetamines Screen Negative, U Benzodiazepines Scrn Negative, Urine Cocaine Screen Negative, U Marijuana (THC) Screen Negative 08/26/24 15:30 08/26/24 15:30 Orders (Tests/Meds): ORDERS Category Date Time Status CT head/brain wo con Stat Cat Scan 08/26/24 15:02 Completed Acetaminophen Stat Lab 08/26/24 15:30 Completed CBC w/Auto Diff [Complete Blood Count Auto Diff] Stat Lab 08/26/24 15:30 Completed CMP [Comprehensive Metabolic Panel] Stat Lab 08/26/24 15:30 Completed Salicylate Stat Lab 08/26/24 15:30 Completed UA [Urinalysis and Microscopic] Stat Lab 08/26/24 15:36 Completed UDS [Drug Screen,Urine] Stat Lab 08/26/24 15:36 Completed Medical Decision Narrative: In summary patient is a 74-year-old female who presents to the emergency department for evaluation of altered mental status and suicidal ideation. Patient is hemodynamically stable upon arrival, afebrile. Physical exam is remarkable for a wellness well-developed 74-year-old female who is in no acute distress. I do not appreciate disorientation as patient is able to track conversations and answer questions although her perceived to be appropriate on the surface with a little probing they appear not to be. Patient also has feigned crying as she has no tears and can stop abruptly if redirected. She does not report to me currently that she intended self-harm infection does not recall saying it. I do not find any focal neurologic deficits currently and patient is oriented to person and place but not circumstance.. Differential diagnosis includes acute encephalopathy versus psychiatric disturbance versus dementia worsening etc. initial workup will be conducted with hematologic labs CT scan EKG urine drug screen salicylate acetaminophen alcohol level.. Initial interventions were considered however patient has no acute complaints currently thus are deferred. Initial workup reviewed by me shows that her hematologic labs are nonactionable and the remainder of her workup reveals no acute abnormalities. Given that the patient appears to not have capacity for decision making I had interact discussion with the patient's daughter and and son at the patient's bedside regarding goals of care. They feel like they are unable to take care of her and her needs appropriately currently interestingly the son stated that as long as she is the center of attention things seem to go well but the minute that things do not go that way they end up at the hospital . Given this we will attempt to find a acute psychiatric facility that manages your geriatric care for Wan evaluation. We have essentially ruled out any acute life-threatening organic cause of her symptoms thus we will attempt to have her evaluated from a psychiatric standpoint. We have reached out to appropriate facilities and are awaiting responses. Thus far we have heard from [facility] in [facility] none of which have beds available for the patient. We are awaiting to hear from [facility] at the time of handoff to Dr. Portillo at 2100 hrs. <Opal Portillo MD - Last Filed: 08/26/24 21:22> Vital Signs: 08/26/24 14:50 08/26/24 15:55 08/26/24 16:30 Temperature 98.4 F Temperature Source Oral Pulse Rate 63 68 Pulse Rate [Right] 69 Respiratory Rate 18 Blood Pressure 148/70 H 149/81 H Blood Pressure [Right Arm] 152/74 H Blood Pressure Mean 100 Blood Pressure Mean [Right Arm] 100 02 Sat by Pulse Oximetry 99 97 96 Oxygen Delivery Method Room Air Room Air 08/26/24 17:01 08/26/24 20:09 Temperature 97.9 F Temperature Source Pulse Rate 69 72 Pulse Rate [Right] Respiratory Rate Blood Pressure 141/83 H 171/81 H Blood Pressure [Right Arm] Blood Pressure Mean 102 124 Blood Pressure Mean [Right Arm] 02 Sat by Pulse Oximetry 97 95 Oxygen Delivery Method Room Air Lab Data Lab results reviewed: Yes I reviewed the patient's lab results. Lab Results 08/26/24 15:30: WBC 6.2, RBC 4.37, Hgb 14.3, Hct 39.8, MCV 91.1, MCH 32.8 H, MCHC 36.0 H, RDW 12.7, Plt Count 202, MPV 7.3 L, Neut % (Auto) 53.0, Lymph % (Auto) 36.0, [place] % (Auto) 7.8, Eos % (Auto) 1.9, Baso % (Auto) 1.2, Neut # (Auto) 3.3, Lymph # (Auto) 2.2, [place] # (Auto) 0.5, Eos # (Auto) 0.1, Baso # (Auto) 0.1, Sodium 136, Potassium 3.4 L, Chloride 104, Carbon Dioxide 30, Anion Gap 5.4, BUN 14, Creatinine 1.30 H, Estimated Creat Clear 39, Estimated GFR 40 L, Est GFR ( Amer) 49 L, Glucose 80, Calcium 9.5, Total Bilirubin 0.5, AST 41 H, ALT 27, Alkaline Phosphatase 70, Total Protein 6.8, Albumin 4.3, Globulin 2.5, Albumin/Globulin Ratio 1.7, Salicylates < 1.0 L, Acetaminophen < 10 L 08/26/24 15:36: Urine Color Yellow, Urine Appearance Clear, Urine pH 7.5, Ur Specific [place] 1.015, Urine Protein Negative, Urine Glucose (UA) Negative, Urine Ketones Negative, Urine Blood Trace-i, Urine Nitrate Negative, Urine Bilirubin Negative, Urine Urobilinogen 0.2, Ur Leukocyte Esterase Trace, Urine RBC Occasional, Urine WBC Occasional, Ur Squamous Epith Cells None, Urine Bacteria 1+, Urine Opiates Screen Negative, Urine Methadone Screen Negative, Ur Barbituates Screen Negative, Ur Phencyclidine Scrn Negative, Ur Amphetamines Screen Negative, U Benzodiazepines Scrn Negative, Urine Cocaine Screen Negative, U Marijuana (THC) Screen Negative Orders (Tests/Meds): ORDERS Category Date Time Status CT head/brain wo con Stat Cat Scan 08/26/24 15:02 Completed Acetaminophen Stat Lab 08/26/24 15:30 Completed CBC w/Auto Diff [Complete Blood Count Auto Diff] Stat Lab 08/26/24 15:30 Completed CMP [Comprehensive Metabolic Panel] Stat Lab 08/26/24 15:30 Completed Salicylate Stat Lab 08/26/24 15:30 Completed UA [Urinalysis and Microscopic] Stat Lab 08/26/24 15:36 Completed UDS [Drug Screen,Urine] Stat Lab 08/26/24 15:36 Completed Medical Decision Narrative: In summary patient is a 74-year-old female who presents to the emergency department for evaluation of altered mental status and suicidal ideation. Patient is hemodynamically stable upon arrival, afebrile. Physical exam is remarkable for a wellness well-developed 74-year-old female who is in no acute distress. I do not appreciate disorientation as patient is able to track conversations and answer questions although her perceived to be appropriate on the surface with a little probing they appear not to be. Patient also has feigned crying as she has no tears and can stop abruptly if redirected. She does not report to me currently that she intended self-harm infection does not recall saying it. I do not find any focal neurologic deficits currently and patient is oriented to person and place but not circumstance.. Differential diagnosis includes acute encephalopathy versus psychiatric disturbance versus dementia worsening etc. initial workup will be conducted with hematologic labs CT scan EKG urine drug screen salicylate acetaminophen alcohol level.. Initial interventions were considered however patient has no acute complaints currently thus are deferred. Initial workup reviewed by me shows that her hematologic labs are nonactionable and the remainder of her workup reveals no acute abnormalities. Given that the patient appears to not have capacity for decision making I had interact discussion with the patient's daughter and and son at the patient's bedside regarding goals of care. They feel like they are unable to take care of her and her needs appropriately currently interestingly the son stated that as long as she is the center of attention things seem to go well but the minute that things do not go that way they end up at the hospital . Given this we will attempt to find a acute psychiatric facility that manages your geriatric care for Wan evaluation. We have essentially ruled out any acute life-threatening organic cause of her symptoms thus we will attempt to have her evaluated from a psychiatric standpoint. We have reached out to appropriate facilities and are awaiting responses. Thus far we have heard from [facility] in [facility] none of which have beds available for the patient. We are awaiting to hear from [facility] at the time of handoff to Dr. Portillo at 2100 hrs. Reassessment 9:20 PM after 6 hours of observation in the ED patient's been very pleasant and has not been disruptive in any way. However given the patient's suicidal ideation we have not been able to clear the patient. Patient's been turned down by numerous healthcare centers currently have a call out to [facility] they may have a bed available tomorrow. I spoke with Dr. Salazar I also spoke with our JEWEL WAXER given the complexity of the situation as we do not have inpatient psychiatry patient will likely need case management to get involved tomorrow she will need a sitter tonight and we wanted to make sure that the best location for this patient was agreed upon. We all agreed to admit the patient for further evaluation and management team to continue attempted transfers or interventions associated with psychiatry. No somatic or medical diagnosis has been made to suggest that anything organic may be the cause of her symptoms today. I spoke with Dr. Salazar who agreed to admit the patient for further evaluation management. Critical Care <DON yAala - Last Filed: 08/26/24 20:58> Critical Care Time Critical Care Time: No
--- NOTE | 2024-08-26 15:02 | CT_ITS ---
FINAL REPORT CLINICAL HISTORY: Acute confusion COMPARISON: 07/27/2024 FINDINGS: Axial images of the head were obtained without contrast. Coronal reformatted images were also obtained. This study was performed with techniques to keep radiation doses as low as reasonably achievable (ALARA). Individualized dose reduction techniques using automated exposure control or adjustment of mA and/or kV according to the patient''s size were employed. There is generalized age-appropriate atrophy. Periventricular low-attenuation areas are seen consistent with mild chronic ischemic changes. There is no evidence of intracranial hemorrhage or mass. There is no evidence of acute infarct. There is no evidence of shift of the midline structures. No skull abnormality is seen on the bone window images. IMPRESSION: Atrophy and mild periventricular chronic ischemic changes. No acute intracranial abnormality identified. Reviewed, Interpreted and Dictated by Puma Silverio III, MD Transcribed by Ava Jaramillo Authenticated and [facility]
[2024-08-26 15:40] LABS: Microscopic, Urine URINE MICROSCOPIC (MICROSCOPIC)
[2024-08-26 15:43] LABS: Basophils # 0.1 K/mm3 (0-0.2); Basophils % 1.2 % (0.1-2.0); Eosinophils # 0.1 K/mm3 (0.0-0.4); Eosinophils % 1.9 % (0.1-12.0); Hematocrit 39.8 % (37.0-47.0); Hemoglobin 14.3 g/dL (12.2-16.2); Lymphocytes # 2.2 K/mm3 (0.7-4.5); Mean Corpuscular Hemoglobin 32.8 pg (27.0-31.2); Mean Corpuscular Volume 91.1 fl (81-99); Mean Platelet Volume 7.3 fl (7.4-10.4); Monocytes # 0.5 K/mm3 (0.1-1.0); Monocytes % 7.8 % (1.7-9.3); Neutrophils # 3.3 K/mm3 (1.8-7.8); Platelet Count 202 K/mm3 (142-424); Red Blood Count 4.37 M/mm3 (4.20-5.40); Red Cell Distribution Width 12.7 % (11.5-17.5); White Blood Count 6.2 K/mm3 (4.8-10.8)
[2024-08-26 15:51] LABS: Albumin Level 4.3 g/dl (3.5-5.0); Chloride 104 mmol/L (98-107)
[2024-08-26 15:52] LABS: Potassium 3.4 mmoL/L (3.5-5.1); Sodium 136 mmol/L (136-145)
[2024-08-26 15:54] LABS: Alanine Aminotransferase 27 U/L (12-78); Alkaline Phosphatase 70 U/L (38-126); Anion Gap 5.4 mEq/L (5-15); Aspartate Amino Transferase 41 U/L (14-36); Bilirubin,Total 0.5 mg/dl (0.2-1.3); Blood Urea Nitrogen 14 mg/dl (7-17); Carbon Dioxide 30 mmol/L (22.0-30.0); Creatinine Clearance Estimated 39 mL/min (50-200); Estimated Glomerular Filt Rate 40 ml/min (>60); GFR (African American) 49 ML/MIN (>60)
[2024-08-26 15:54] LABS: Appearance,Urine CLEAR (Clear); Bilirubin,Urine Negative (Negative); Blood, Urine TRACE-I (Negative); Color,Urine YELLOW (Yellow); Glucose,Urine (UA) Negative (Negative); Ketones,Urine Negative (Negative); Leukocyte Esterase,Urine TRACE (Negative); Nitrate,Urine Negative (Negative); PH,Urine 7.5 (5.0-8.5); Protein,Urine Negative (Negative); Specific Gravity, Urine 1.015 (1.005-1.030); Urobilinogen,Urine 0.2 EU/dl (0.2)
[2024-08-26 15:55] LABS: Albumin/Globulin Ratio 1.7 (1.1-1.8); Calcium 9.5 mg/dl (8.4-10.2); Globulin 2.5 g/dL (1.3-3.2); Glucose 80 mg/dl (74-100); Total Protein,Serum 6.8 g/dl (6.3-8.2)
[2024-08-26 15:56] LABS: Acetaminophen < 10 ug/ml (10-30); Salicylate < 1.0 mg/dL (2.0-20.0)
[2024-08-26 16:05] LABS: Amphetamine/Metha Screen,Urine Negative ng/ml (<1000)
[2024-08-26 16:06] LABS: Barbiturates Screen,Urine Negative ng/ml (<200); Benzodiazepines Screen,Urine Negative ng/ml (<200)
[2024-08-26 16:07] LABS: Cannabinoid Screen,Urine Negative ng/ml (<50); Cocaine Screen,Urine Negative ng/ml (<300)
[2024-08-26 16:08] LABS: Methadone Screen,Urine Negative ng/ml (<300)
[2024-08-26 16:09] LABS: Opiate Screen,Urine Negative ng/ml (<300); Phencyclidine Screen,Urine Negative ng/ml (<25)
[2024-08-26 16:42] LABS: RBC,Urine Occasional #/hpf (0-3); WBC,Urine Occasional #/hpf (0-3)
[2024-08-26 16:43] LABS: Bacteria,Urine 1+ /lpf
--- NOTE | 2024-08-26 17:52 | PC.NURSE ---
Called [facility] for possible transfer per Don, They stated they would give us a call back
--- NOTE | 2024-08-26 19:34 | PC.NURSE ---
patient refuses to wear monitoring equipment.
--- NOTE | 2024-08-26 20:21 | PC.NURSE ---
[facility] has no beds available, patient placed on wait list
--- NOTE | 2024-08-26 20:26 | PC.NURSE ---
[facility] notified of need to transport, info faxed
--- NOTE | 2024-08-26 21:44 | PC.NURSE ---
Report called to regine
--- NOTE | 2024-08-26 22:04 | PC.NURSE ---
Patient arrived to floor via stretcher from ED at 21:57.
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
[2024-08-26] MEDS: 0.9% NaCl w/20mEq KCL 1,000 ML 100 ML IV (22:54)
--- NOTE | 2024-08-26 23:11 | CT_ITS ---
PROCEDURE INFORMATION: Exam: CT Abdomen And Pelvis With Contrast Exam date and time: 08/27/2024 3:27 AM Age: 74 years old Clinical indication: Abdominal pain; Additional info: Vomit R/O sbo/ileus please use iv/po contrast TECHNIQUE: Imaging protocol: Computed tomography of the abdomen and pelvis with contrast. Radiation optimization: All CT scans at this facility use at least one of these dose optimization techniques: automated exposure control; mA and/or kV adjustment per patient size (includes targeted exams where dose is matched to clinical indication); or iterative reconstruction. Contrast material: ISOVUE; Contrast volume: 75 ml; Contrast route: IV; Other contrast: Oral, gastrografin, 30; COMPARISON: CT ABDOMEN PELVIS WO/W CON 06/16/2024 3:40 PM FINDINGS: Liver: Normal. No mass. Gallbladder and biliary ducts: Cholecystectomy. Pancreas: Focal hypodensity in the. No ductal dilation. Spleen: Normal. No splenomegaly. Adrenal glands: Normal. No mass. Kidneys and ureters: Simple right renal cyst. Stomach and bowel: The large and small bowel are decompressed. There is some focal thickening of the gastric antrum and pylorus. Appendix: No evidence of appendicitis. Intraperitoneal space: Unremarkable. No free air. No significant fluid collection. Vasculature: Unremarkable. No abdominal aortic aneurysm. Lymph nodes: Unremarkable. No enlarged lymph nodes. Urinary bladder: Unremarkable as visualized. Reproductive: Oral contrast was administered on the study but this remains within the stomach with a very small amount entering the duodenum.. Hysterectomy. Bones/joints: Unremarkable. No acute fracture. Soft tissues: Unremarkable. IMPRESSION: Moderately distended stomach, most of the oral contrast remains within the stomach with minimal extending into the duodenum. Concentric thickening of the antrum and pylorus are noted this can be seen with peptic ulcer disease. Possible gastric outlet obstruction. Consider upper endoscopy for further evaluation. COMMENTS: Consistent with the [place] [employer]'s Incidental Findings Committee white paper (J Am Alexandra Radiol 2018): Any incidental renal lesion less than 1 cm or classified as too small to characterize, or any incidental cystic renal lesion characterized as simple-appearing, is likely benign. No follow-up imaging is recommended for these lesions per consensus recommendations based on imaging criteria.
[2024-08-27] MEDS: D5W/0.9% NaCl w/20mEq KCL 1,000 ML 100 ML IV ×3 (00:19→20:40)
[2024-08-27] MEDS: DIATRIZOATE MEG 66% & DIATRIZOATE NA 10% 30ML UDC 30 ML PO (00:34)
--- NOTE | 2024-08-27 01:19 | PC.NURSE ---
Patient finished drinking oral contrast at this time. CT informed.
[2024-08-27] MEDS: LORazepam 1MG TABLET 1 MG PO ×2 (02:58→17:55)
[2024-08-27] MEDS: IOPAMIDOL-370 (76%);100ML BOTTLE 75 ML IV (03:38)
[2024-08-27] MEDS: SODIUM CHLORIDE 0.9% 10ML SYR (RAD ONLY) 10 ML IV (03:38)
--- NOTE | 2024-08-27 03:45 | PC.NURSE ---
[address] in wheelchair at this time. Patient tolerated abd CT with contrast well. No adverse reactions noted. Patient transported back to room and helped into bed, repositioned to comfort. Patient appears content, no longer tearful, smiling at staff. No complaints at this time, denies further needs.
[2024-08-27 03:53] VITALS: BMI 26.6
[2024-08-27 04:22] VITALS: BP 161/59; PULSE 83; RESP 20; TEMP 36.7; O2SAT 99
--- NOTE | 2024-08-27 06:08 | EXP.EVENT.NO ---
Possible gastric outlet obstruction. Will make patient NPO. Just called by radiology with this finding at 6 AM 08/27/2024
[2024-08-27 06:51] LABS: Basophils # 0.1 K/mm3 (0-0.2); Basophils % 0.8 % (0.1-2.0); Eosinophils # 0.1 K/mm3 (0.0-0.4); Eosinophils % 1.2 % (0.1-12.0); Hematocrit 39.2 % (37.0-47.0); Hemoglobin 13.7 g/dL (12.2-16.2); Lymphocytes % 13.5 % (10-50); Mean Corpuscular HGB Conc 34.9 g/dL (31.8-35.4); Mean Corpuscular Hemoglobin 32.5 pg (27.0-31.2); Mean Corpuscular Volume 93.2 fl (81-99); Mean Platelet Volume 7.6 fl (7.4-10.4); Monocytes # 0.4 K/mm3 (0.1-1.0); Neutrophils # 5.5 K/mm3 (1.8-7.8); Neutrophils % 78.4 % (37.0-80.0); Platelet Count 191 K/mm3 (142-424); Red Cell Distribution Width 12.8 % (11.5-17.5)
[2024-08-27 06:54] LABS: Chloride 108 mmol/L (98-107); Potassium 3.9 mmoL/L (3.5-5.1); Sodium 139 mmol/L (136-145)
[2024-08-27 06:57] LABS: Anion Gap 6.9 mEq/L (5-15); Blood Urea Nitrogen 14 mg/dl (7-17); Carbon Dioxide 28 mmol/L (22.0-30.0); Creatinine Clearance Estimated 42 mL/min (50-200); Estimated Glomerular Filt Rate 44 ml/min (>60); GFR (African American) 53 ML/MIN (>60)
[2024-08-27 06:58] LABS: Calcium 9.1 mg/dl (8.4-10.2); Glucose 114 mg/dl (74-100); Magnesium 1.9 mg/dl (1.6-2.3)
--- NOTE | 2024-08-27 07:19 | P.CONS_ITS ---
History of Present Illness *Admission Date: 08/26/24 *Reason for visit:: Possible gastric outlet obstruction. *History of present illness: Patient is a 74-year-old female with history of dementia, hyperlipidemia, hypertension, pancreatic insufficiency. She was brought to the emergency department on 08/26/2024 by EMS for altered mental status and emotional state (suicidal ideation). Patient reportedly had a syncopal episode with EMS. Evaluation in the emergency department revealed no focal neurologic findings. Consideration was being given for transfer to psychiatric facility from [facility] emergency department. Given patient's suicidal ideation reported history she was unable to be discharged from the emergency department. She was admitted for inpatient management. Workup included a CT scan abdomen and pelvis due to some history of vomiting. This revealed moderately distended stomach, most of the oral contrast remains within the stomach with minimal extending into the duodenum. Concentric thickening of the antrum and pylorus are noted this can be seen with peptic ulcer disease. Possible gastric outlet obstruction. Consider upper endoscopy for further evaluation. Surgical consultation was ordered. Of note, patient recently had cholecystectomy in [place] a few weeks ago. [facility] Disclaimer: The information contained in this section may have been updated after the patient was seen, as this information can be updated by other users. Medical History (Updated 08/26/24 @ 23:42 by Nik Salazar MD) Urinary tract infection Memory loss Fixation hardware in spine Fixation hardware in foot Hyperlipemia Hypertension Surgical History History of cholecystectomy History of hysterectomy Family History Other No significant family history Social History (Updated 08/26/24 @ 22:37 by Angelika Mercado RN) Smoking Status: Never smoker alcohol intake: never substance use type: denies use current occupational status: retired Travel in the last 8 weeks: None Have you lived/traveled outside US in past 30 days?: No Contact w/someone who lives/traveled outside US past 30 days?: No Exposure to someone with infectious disease in past 14 days?: No Do you have a fever (greater than 100.4 F or 38 C)?: No Have you tested positive for COVID-19: No Exposed to someone with COVID-19 in past 14 days?: No Do you have a sore throat?: No Do you have a cough?: No Do you have any weakness?: No Do you have any diarrhea?: No Are you experiencing any unusual bleeding?: No Do you have any muscle aches/pain?: No Do you have any abdominal pain?: No Are you experiencing loss of taste or smell?: No Meds Home Medications and Allergies Home Medications ?Medication ?Instructions ?Recorded ?Confirmed ?Type amlodipine 5 mg-benazepril 20 mg 1 cap PO DAILY 01/28/24 08/26/24 History capsule memantine 14 mg capsule 14 mg PO DAILY 01/28/24 08/26/24 History sprinkle,extended release 24hr escitalopram oxalate 10 mg tablet 10 mg PO DAILY 05/10/24 08/26/24 History pravastatin 40 mg tablet 40 mg PO HS 05/10/24 08/27/24 History Lactobacil.acidophilus-Bifido.animalis 1 cap PO HS 06/08/24 08/26/24 History 5 billion cell sprinkle capsule (Probiotic) bupropion HCl 100 mg tablet,12 hr 100 mg PO BID 06/08/24 08/26/24 History sustained-release quetiapine 25 mg tablet 25 mg PO HS 06/08/24 08/26/24 History lorazepam 1 mg tablet 1 mg PO BIDP PRN Anxiety 07/09/24 08/27/24 History donepezil 10 mg tablet 10 mg PO HS 08/27/24 08/27/24 History estradiol 0.01% (0.1 mg/gram) 1 applic vaginal .2 TIMES WEEKLY 08/27/24 08/27/24 History vaginal cream lamotrigine 25 mg tablet 50 mg PO HS 08/27/24 08/27/24 History New Prescriptions to Start Prescriptions: Allergies Allergy/AdvReac Type Severity Reaction Status Date / Time Latex, Natural Rubber Allergy Intermediate Rash Verified 07/09/24 10:25 Penicillins Allergy Intermediate Rash Verified 07/09/24 10:25 Sulfa (Sulfonamide Allergy Rash Verified 07/09/24 10:25 Antibiotics) Exam (Inpt) Vital signs and Labs for Last 24 Hours: Temp Pulse Resp BP Pulse Ox O2 Del Method 98.1 F 83 20 161/59 H 99 Room Air 08/27/24 04:22 08/27/24 04:22 08/27/24 04:22 08/27/24 04:22 08/27/24 04:22 08/27/24 06:50 Laboratory Results - last 24 hr 08/26/24 15:30: WBC 6.2, RBC 4.37, Hgb 14.3, Hct 39.8, MCV 91.1, MCH 32.8 H, M CHC 36.0 H, RDW 12.7, Plt Count 202, MPV 7.3 L, Neut % (Auto) 53.0, Lymph % (Auto) 36.0, [place] % (Auto) 7.8, Eos % (Auto) 1.9, Baso % (Auto) 1.2, Neut # (Auto) 3.3, Lymph # (Auto) 2.2, [place] # (Auto) 0.5, Eos # (Auto) 0.1, Baso # (Auto) 0.1, Sodium 136, Potassium 3.4 L, Chloride 104, Carbon Dioxide 30, Anion Gap 5.4, BUN 14, Creatinine 1.30 H, Estimated Creat Clear 39, Estimated GFR 40 L , Est GFR ( Amer) 49 L, Glucose 80, Calcium 9.5, Total Bilirubin 0.5, AST 41 H, ALT 27, Alkaline Phosphatase 70, Total Protein 6.8, Albumin 4.3, Globulin 2.5, Albumin/Globulin Ratio 1.7, Salicylates < 1.0 L, Acetaminophen < 10 L 08/26/24 15:36: Urine Color Yellow, Urine Appearance Clear, Urine pH 7.5, Ur Specific [place] 1.015, Urine Protein Negative, Urine Glucose (UA) Negative, Urine Ketones Negative, Urine Blood Trace-i, Urine Nitrate Negative, Urine Bilirubin Negative, Urine Urobilinogen 0.2, Ur Leukocyte Esterase Trace, Urine RBC Occasional, Urine WBC Occasional, Ur Squamous Epith Cells None, Urine Bacteria 1+, Urine Opiates Screen Negative, Urine Methadone Screen Negative, Ur Barbituates Screen Negative, Ur Phencyclidine Scrn Negative, Ur Amphetamines Screen Negative, U Benzodiazepines Scrn Negative, Urine Cocaine Screen Negative, U Marijuana (THC) Screen Negative 08/27/24 05:54: WBC 7.0, RBC 4.20, Hgb 13.7, Hct 39.2, MCV 93.2, MCH 32.5 H, MCHC 34.9, RDW 12.8, Plt Count 191, MPV 7.6, Neut % (Auto) 78.4, Lymph % (Auto) 13.5, [place] % (Auto) 6.0, Eos % (Auto) 1.2, Baso % (Auto) 0.8, Neut # (Auto) 5.5, Lymph # (Auto) 1.0, [place] # (Auto) 0.4, Eos # (Auto) 0.1, Baso # (Auto) 0.1, Sodium 139, Potassium 3.9, Chloride 108 H, Carbon Dioxide 28, Anion Gap 6.9, BUN 14, Creatinine 1.20 H, Estimated Creat Clear 42, Estimated GFR 44 L, Est GFR ( Amer) 53 L, Glucose 114 H D, Calcium 9.1, Magnesium 1.9 I & O for Labs for Last 24 Hours: Intake & Output 08/24/24 08/25/24 08/26/24 08/27/24 11:59 11:59 11:59 11:59 Intake Total 133 / 133 Output Total 0 / 0 Balance 133 / 133 Weight 141 lb 4.8 oz GI: Present soft; Absent distention or tenderness Results Labs 08/27/24 05:54 08/27/24 05:54 Labs: Laboratory Results - last 24 hr 08/26/24 15:30: WBC 6.2, RBC 4.37, Hgb 14.3, Hct 39.8, MCV 91.1, MCH 32.8 H, M CHC 36.0 H, RDW 12.7, Plt Count 202, MPV 7.3 L, Neut % (Auto) 53.0, Lymph % (Auto) 36.0, [place] % (Auto) 7.8, Eos % (Auto) 1.9, Baso % (Auto) 1.2, Neut # (Auto) 3.3, Lymph # (Auto) 2.2, [place] # (Auto) 0.5, Eos # (Auto) 0.1, Baso # (Auto) 0.1, Sodium 136, Potassium 3.4 L, Chloride 104, Carbon Dioxide 30, Anion Gap 5.4, BUN 14, Creatinine 1.30 H, Estimated Creat Clear 39, Estimated GFR 40 L , Est GFR ( Amer) 49 L, Glucose 80, Calcium 9.5, Total Bilirubin 0.5, AST 41 H, ALT 27, Alkaline Phosphatase 70, Total Protein 6.8, Albumin 4.3, Globulin 2.5, Albumin/Globulin Ratio 1.7, Salicylates < 1.0 L, Acetaminophen < 10 L 08/26/24 15:36: Urine Color Yellow, Urine Appearance Clear, Urine pH 7.5, Ur Specific [place] 1.015, Urine Protein Negative, Urine Glucose (UA) Negative, Urine Ketones Negative, Urine Blood Trace-i, Urine Nitrate Negative, Urine Bilirubin Negative, Urine Urobilinogen 0.2, Ur Leukocyte Esterase Trace, Urine RBC Occasional, Urine WBC Occasional, Ur Squamous Epith Cells None, Urine Bacteria 1+, Urine Opiates Screen Negative, Urine Methadone Screen Negative, Ur Barbituates Screen Negative, Ur Phencyclidine Scrn Negative, Ur Amphetamines Screen Negative, U Benzodiazepines Scrn Negative, Urine Cocaine Screen Negative, U Marijuana (THC) Screen Negative 08/27/24 05:54: WBC 7.0, RBC 4.20, Hgb 13.7, Hct 39.2, MCV 93.2, MCH 32.5 H, MCHC 34.9, RDW 12.8, Plt Count 191, MPV 7.6, Neut % (Auto) 78.4, Lymph % (Auto) 13.5, [place] % (Auto) 6.0, Eos % (Auto) 1.2, Baso % (Auto) 0.8, Neut # (Auto) 5.5, Lymph # (Auto) 1.0, [place] # (Auto) 0.4, Eos # (Auto) 0.1, Baso # (Auto) 0.1, Sodium 139, Potassium 3.9, Chloride 108 H, Carbon Dioxide 28, Anion Gap 6.9, BUN 14, Creatinine 1.20 H, Estimated Creat Clear 42, Estimated GFR 44 L, Est GFR ( Amer) 53 L, Glucose 114 H D, Calcium 9.1, Magnesium 1.9 Assessment and Plan *Assessment and plan (1) Nausea & vomiting: Status: Acute Category: Medical Code(s): R11.2 - Nausea with vomiting, unspecified Plan I reviewed her images. I did obtain an additional acute abdominal series today. This reveals right base atelectasis. There is contrast in the stomach and the colon. I do not feel that she needs urgent upper endoscopy at this time as it would likely be the difficult study with some risk given her relatively full stomach initial imaging. May be reasonable to proceed with limited diet at this time. Recommend endoscopy in the near future potentially as an outpatient. This can be done with general surgery or gastroenterology. May require clear liquids preceding this.
--- NOTE | 2024-08-27 07:25 | XR_ITS ---
FINAL REPORT CLINICAL HISTORY: Possible gastric outlet obstruction COMPARISON: 07/27/2024 FINDINGS: ABDOMEN COMPLETE INCL CHEST The heart is normal in size. The mediastinum is unremarkable. There is mild right base atelectasis. There is no pneumothorax. There are postoperative changes of the mandible and lower cervical spine. There is a nonspecific, nonobstructive bowel gas pattern. No abnormal dilatation is identified. Contrast is seen in the stomach, bladder, and colon consistent with recent contrast administration. There is no abnormal calcification. IMPRESSION: Right base atelectasis. Reviewed, Interpreted and Dictated by Puma Silverio III, MD Transcribed by Veronica Velazquez Authenticated and [facility]
--- NOTE | 2024-08-27 07:55 | HMH.PHAINT1 ---
Pharmacy Intervention Comments: Home medication list verified using list from outpatient pharmacy
[2024-08-27 08:00] VITALS: BP 147/72; PULSE 78; PULSE 80; RESP 18; TEMP 36.7; O2SAT 98
[2024-08-27] MEDS: AMLODIPINE 5MG TABLET 5 MG PO (09:37)
[2024-08-27] MEDS: lamoTRIgine 100MG TABLET 50 MG PO ×2 (09:37→20:41)
[2024-08-27] MEDS: PANTOPRAZOLE 40MG VIAL 40 MG IV ×2 (09:37→20:42)
[2024-08-27] MEDS: LISINOPRIL 20MG TABLET 20 MG PO (09:37)
[2024-08-27] MEDS: MEMANTINE 10MG TABLET 10 MG PO ×2 (09:37→20:42)
[2024-08-27] MEDS: SODIUM CHLORIDE 0.9% 10ML VIAL 10 ML IV (09:37)
[2024-08-27] MEDS: buPROPion HCL 100 MG TABLET PO ×2 (11:47→20:41)
[2024-08-27] MEDS: CITALOPRAM 20MG TABLET 20 MG PO (11:47)
[2024-08-27 12:00] VITALS: PULSE 80
--- NOTE | 2024-08-27 12:58 | SW/DCPLANNER ---
I received a consult on this patient regarding the possibly of inpatient psychiatric care. At the time the following facilities have denied patient: [facility], [facility], [facility] and [facility]. I was present in room w/ MD during rounds w/ patient and her son. Per MD the plan is for Behavioral Health to evaluate patient to assist establishing a discharge plan. I will continue to follow up w/ patient and family. I did discuss w/ son options of placement and private pay requirement.
--- NOTE | 2024-08-27 15:35 | PC.NURSE ---
pt has been alert to self only this shift. pt diet has been advanced to full liquid diet per josefina. pt had large bowel movement previously in shift. pt has not c/o any abdominal pain this shift. pt has had no other complaints this shift. pt was taken off suicide precautions d/t behavioral health consult revealing no suicidal ideation. pt does, however remain 1:1 d/t confusion. pt has tried to get out of bed numerous times and has been educated she cannot do so without assistance. bed alarm is on. no new orders at this elzbieta
[2024-08-27 16:00] VITALS: BP 145/81; PULSE 70; PULSE 75; RESP 16; TEMP 36.7; O2SAT 100
--- NOTE | 2024-08-27 17:55 | PC.NURSE ---
pt was visibly upset and crying, when asked what was wrong pt could not give a for sure answer. instructed this RN to give pt prn daily dose of ativan (see MAR). no new orders at this time.
--- NOTE | 2024-08-27 18:48 | P.PN_ITS ---
Subjective *Date: 08/27/24 *Time: 07:27 Interval history: Patient feeling better by morning. Denies any thoughts of self-harm. Family at bedside. Significant questions about placement options. Case management helped answer questions. Stable on room air. N.p.o. awaiting eval by surgery given CT findings. Denies abdominal pain, nausea, vomiting, shortness of breath or chest pain Medical Exam Vital signs and Labs for Last 24 Hours: Vital Signs Temp Pulse Pulse Resp BP BP Pulse Ox 08/27/24 16:40 08/27/24 16:00 70 08/27/24 16:00 98.1 F 75 16 145/81 H 100 08/27/24 15:00 08/27/24 13:00 08/27/24 12:00 80 08/27/24 11:00 08/27/24 09:00 08/27/24 08:00 08/27/24 08:00 80 08/27/24 08:00 98.0 F 78 18 147/72 H 98 08/27/24 06:50 08/27/24 05:00 08/27/24 04:22 98.1 F 83 20 161/59 H 99 08/27/24 03:00 08/27/24 01:00 08/26/24 23:00 08/26/24 22:35 97.8 F 67 19 171/81 H 97 08/26/24 22:10 97 08/26/24 21:42 97.9 F 67 14 171/80 H 08/26/24 20:09 97.9 F 72 171/81 H 95 O2 Del Method 08/27/24 16:40 Room Air 08/27/24 16:00 08/27/24 16:00 Room Air 08/27/24 15:00 Room Air 08/27/24 13:00 Room Air 08/27/24 12:00 08/27/24 11:00 Room Air 08/27/24 09:00 Room Air 08/27/24 08:00 Room Air 08/27/24 08:00 08/27/24 08:00 Room Air 08/27/24 06:50 Room Air 08/27/24 05:00 Room Air 08/27/24 04:22 Room Air 08/27/24 03:00 Room Air 08/27/24 01:00 Room Air 08/26/24 23:00 Room Air 08/26/24 22:35 Room Air 08/26/24 22:10 Room Air 08/26/24 21:42 Room Air 08/26/24 20:09 Intake and Output 08/27/24 08/27/24 08/27/24 07:59 15:59 23:59 Intake Total 133 / 373 240 / 373 Output Total 0 / 0 0 / 0 Balance 133 / 373 0 / 373 240 / 373 Intake: Intake, Oral Amount 240 / 240 Intake, Total IV Amount 133 / 133 0.9% NaCl w/20mEq KCL 1,000 ml 133 / 133 @ 100 mls/hr IV .Q10H [facility] Rx#: [id number] Output: Output, Urine Amount 0 / 0 0 / 0 Other: Number of Voids 1 Number of Unmeasured Voids 1 Number of Bowel Movements 2 1 Weight 64.093 kg Patient Weight 08/27/24 23:59 Weight 64.093 kg Laboratory Results - last 24 hr 08/27/24 05:54: WBC 7.0, RBC 4.20, Hgb 13.7, Hct 39.2, MCV 93.2, MCH 32.5 H, MCHC 34.9, RDW 12.8, Plt Count 191, MPV 7.6, Neut % (Auto) 78.4, Lymph % (Auto) 13.5, [place] % (Auto) 6.0, Eos % (Auto) 1.2, Baso % (Auto) 0.8, Neut # (Auto) 5.5, Lymph # (Auto) 1.0, [place] # (Auto) 0.4, Eos # (Auto) 0.1, Baso # (Auto) 0.1, Sodium 139, Potassium 3.9, Chloride 108 H, Carbon Dioxide 28, Anion Gap 6.9, BUN 14, Creatinine 1.20 H, Estimated Creat Clear 42, Estimated GFR 44 L, Est GFR ( Amer) 53 L, Glucose 114 H D, Calcium 9.1, Magnesium 1.9 I & O for Labs for Last 24 Hours: Intake & Output 08/24/24 08/25/24 08/26/24 08/27/24 23:59 23:59 23:59 23:59 Intake Total 373 / 373 Output Total 0 / 0 Balance 373 / 373 Weight 62.868 kg 64.093 kg Constitutional: Present no acute distress, average body habitus and cooperative Head: Present atraumatic and normocephalic ENT: Present normal exam Respiratory: Present normal respiratory effort; Absent rhonchi, wheezes or crackles Cardiac: Present Reg Rate and Rhythm GI: Present soft and normal bowel sounds; Absent distention or tenderness Extremities: Present normal inspection and full ROM Skin: Present intact; Absent erythema Neuro: Present Grossly Intact, alert, awake and moves all extremities Comment:: Oriented to self, knows she is in the hospital. Assessment and Plan *Assessment and plan (1) Suicidal ideation: Status: Resolved Category: Medical Code(s): R45.851 - Suicidal ideations (2) Acute confusion: Status: Acute Category: Medical Code(s): R41.0 - Disorientation, unspecified (3) Syncope: Status: Acute Category: Medical Code(s): R55 - Syncope and collapse (4) Nausea & vomiting: Status: Acute Category: Medical Code(s): R11.2 - Nausea with vomiting, unspecified (5) Mood disorder: Problem Comment: Differential diagnosis: Reactive depression, depression with psychotic features, bipolar disorder. Status: Chronic Category: Medical Code(s): F39 - Unspecified mood [affective] disorder (6) Hyperlipemia: Status: Chronic Category: Medical Code(s): E78.5 - Hyperlipidemia, unspecified (7) Hypertension: Status: Chronic Category: Medical Code(s): I10 - Essential (primary) hypertension (8) Dementia: Status: Suspected Qualifiers: Alzheimer's disease onset: late onset Dementia behavioral or psychological symptom: with other behavioral disturbance Dementia severity: moderate Dementia type: Alzheimer's Qualified Code(s): G30.1 - Alzheimer's disease with late onset; F02.B18 - Dementia in other diseases classified elsewhere, moderate, with other behavioral disturbance Category: Medical Code(s): F03.90 - Unspecified dementia, unspecified severity, without behavioral disturbance, psychotic disturbance, mood disturbance, and anxiety (9) Pancreatic abnormality: Status: Acute Category: Medical Code(s): 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 Status: Chronic Qualifiers: Depression Type: reactive depression Qualified Code(s): F32.9 - Major depressive disorder, single episode, unspecified Category: Medical Code(s): F32.A - Depression, unspecified Plan This is a 74-year-old with past medical history of debridement due to of 10 months ago, dementia, hyperlipidemia, hypertension, pancreatic insufficiency. Patient brought to hospital by son/daughter for suicidal ideation evaluation. Patient suffered from syncopal episode with EMS today. Patient also suffering from nausea/vomiting over past few days. Patient had syncopal episode with EMS. Hemodynamically stable overnight. Surgery and psychiatry evaluating patient today. Problems addressed as follows: Suicidal ideation/comments of self-harm ? Patient denies any thoughts of self-harm. Behavioral health evaluated today, discussed case. Concern patient was seeking attention. No active thoughts at this time of self-harm. Patient safe to discharge home with family. Would benefit however from placement given patient's weaning cognitive state and significant needs with help for ADLs on a daily basis. Case management assisting with care. Will likely discharge home with family as patient has been turned down by all [facility] facilities consulted. Would benefit from facility with memory unit. Hypokalemia: Potassium 3.9, magnesium 1.9. Repeat CBC, CMP, magnesium ordered for the morning. Dehydration secondary to nausea/vomiting: ? CT of abdomen with contrast showed delayed emptying of stomach. Concern for possible obstruction versus gastroparesis. Repeat KUB this morning showed contrast in the colon. Surgery evaluated, no plan for urgent EGD. Recommend advancing diet to full liquids during our discussion and evaluate for tolerance of p.o. intake. If tolerates nutrition, plan for outpatient EGD. -Discontinue IV fluids -Kidney function and electrolytes better. BUN 14, creatinine 1.2, patient's baseline. Syncope secondary to dehydration: ? CT brain done emergency room without acute changes. Likely secondary to dehydration secondary to recent nausea/vomiting. As above in dehydration/hypoglycemia sections. Bereavement versus depression after of 10 months ago: ? Patient's 10 months ago. Son states that patient's hallucinations have gotten worse since of . Patient currently seeing outpatient mental health/neurology. - Continue lorazepam and 1 mg p.o. as needed anxiety -Behavioral health evaluated, recommend per our discussion to increase Seroquel to 100 mg nightly to aid in sleep. Continue lamotrigine 25 mg p.o. daily Dementia: Continue home donepezil 10 mg nightly and memantine 14 mg p.o. daily Hypertension: Amlodipine/benazepril 1 p.o. daily. Hydralazine 10 mg IV every 6 as needed SBP over 160 PPx: Lovenox 40 mg subcu daily CODE STATUS: Full full liquid diet
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
[2024-08-27 20:00] VITALS: BP 130/86; PULSE 60; PULSE 72; RESP 16; TEMP 36.8; O2SAT 99
[2024-08-27] MEDS: DONEPEZIL 10MG TAB 10 MG PO (20:41)
[2024-08-27] MEDS: QUETIAPINE 100MG TABLET 100 MG PO (20:42)
[2024-08-27] MEDS: PRAVASTATIN 40MG TAB 40 MG PO (20:42)
[2024-08-28] VITALS: PULSE 70
[2024-08-28 04:00] VITALS: BP 163/83; PULSE 60; PULSE 67; RESP 14; TEMP 36.7; O2SAT 100; BMI 26.6
[2024-08-28 08:00] VITALS: BP 142/71; PULSE 60; PULSE 62; RESP 16; TEMP 36.7; O2SAT 96
[2024-08-28] MEDS: LISINOPRIL 20MG TABLET 20 MG PO (08:26)
[2024-08-28] MEDS: CITALOPRAM 20MG TABLET 20 MG PO (08:26)
[2024-08-28] MEDS: PANTOPRAZOLE 40MG VIAL 40 MG IV ×2 (08:26→20:08)
[2024-08-28] MEDS: buPROPion HCL 100 MG TABLET PO ×2 (08:26→20:08)
[2024-08-28] MEDS: MEMANTINE 10MG TABLET 10 MG PO ×2 (08:26→20:08)
[2024-08-28] MEDS: SODIUM CHLORIDE 0.9% 10ML VIAL 10 ML IV ×2 (08:26→20:08)
[2024-08-28] MEDS: AMLODIPINE 5MG TABLET 5 MG PO (08:26)
--- NOTE | 2024-08-28 09:18 | EXP.SURG.PN ---
Subjective Narrative: Patient sleeping. No issues with vomiting. Did take some limited full liquids. Exam Data for Last 24 hours Vital signs and Labs for Last 24 Hours: Temp Pulse Resp BP Pulse Ox O2 Del Method 98.1 F 62 16 142/71 H 96 Room Air 08/28/24 08:00 08/28/24 08:00 08/28/24 08:00 08/28/24 08:00 08/28/24 08:00 08/28/24 08:00 I & O for Last 24 hours: Intake & Output 08/25/24 08/26/24 08/27/24 08/28/24 11:59 11:59 11:59 11:59 Intake Total 133 / 133 540 / 540 Output Total 0 / 0 0 / 0 Balance 133 / 133 540 / 540 Weight 141 lb 4.8 oz 141 lb 4.814 oz Progress Note: A&P Assessment and plan (1) Suicidal ideation: Status: Resolved (2) Acute confusion: Status: Acute (3) Syncope: Status: Acute (4) Nausea & vomiting: Status: Acute Assessment and plan: Monitor clinically for gastric outlet obstruction. May need outpatient EGD in the near future (5) Mood disorder: Problem details: Differential diagnosis: Reactive depression, depression with psychotic features, bipolar disorder. Status: Chronic (6) Hyperlipemia: Status: Chronic (7) Hypertension: Status: Chronic (8) Dementia: Status: Suspected (9) Pancreatic abnormality: Status: Acute (10) Depression: Problem details: Symptomatic. Status: Chronic
[2024-08-28 12:00] VITALS: PULSE 60
[2024-08-28 15:04] LABS: Basophils % 0.5 % (0.1-2.0); Eosinophils # 0.2 K/mm3 (0.0-0.4); Eosinophils % 4.6 % (0.1-12.0); Hematocrit 39.2 % (37.0-47.0); Hemoglobin 13.2 g/dL (12.2-16.2); Lymphocytes # 1.7 K/mm3 (0.7-4.5); Lymphocytes % 32.1 % (10-50); Mean Corpuscular HGB Conc 33.7 g/dL (31.8-35.4); Mean Corpuscular Hemoglobin 31.7 pg (27.0-31.2); Mean Corpuscular Volume 94.1 fl (81-99); Mean Platelet Volume 7.2 fl (7.4-10.4); Monocytes # 0.5 K/mm3 (0.1-1.0); Monocytes % 10.4 % (1.7-9.3); Neutrophils # 2.8 K/mm3 (1.8-7.8); Neutrophils % 52.4 % (37.0-80.0); Platelet Count 177 K/mm3 (142-424); Red Blood Count 4.17 M/mm3 (4.20-5.40); White Blood Count 5.3 K/mm3 (4.8-10.8)
[2024-08-28 15:20] LABS: Chloride 109 mmol/L (98-107); Potassium 4.1 mmoL/L (3.5-5.1); Sodium 139 mmol/L (136-145)
[2024-08-28 15:23] LABS: Anion Gap 9.1 mEq/L (5-15); Blood Urea Nitrogen 9 mg/dl (7-17); Carbon Dioxide 25 mmol/L (22.0-30.0); Creatinine Clearance Estimated 42 mL/min (50-200); Estimated Glomerular Filt Rate 44 ml/min (>60); GFR (African American) 53 ML/MIN (>60); Glucose 111 mg/dl (74-100); Magnesium 1.7 mg/dl (1.6-2.3)
[2024-08-28 16:00] VITALS: BP 136/72; PULSE 50; PULSE 58; RESP 16; TEMP 36.6; O2SAT 98
--- NOTE | 2024-08-28 17:14 | PC.NURSE ---
pt has remained alert to self only and remained on room air this shift. pt has been sleeping most of shift, however pt has not had a full nights rest in quite some time per family member. this RN did ambulate pt to chair to eat dinner x1 assistance. pt was agreeable to sit in chair and eat dinner. pt has been ambulating to and from bathroom with x1 assistance. pt does have occasional accidents in brief. no new orders at this time. pt currently up to chair. call light within reach.
--- NOTE | 2024-08-28 17:56 | EXP.ACUTE.PN ---
Subjective *Date: 08/28/24 *Time: 18:08 Medical Exam Vital signs and Labs for Last 24 Hours: Vital Signs Temp Pulse Pulse Resp BP Pulse Ox O2 Del Method 08/28/24 16:42 Room Air 08/28/24 16:00 98 F 58 L 16 136/72 98 Room Air 08/28/24 14:48 Room Air 08/28/24 13:00 Room Air 08/28/24 12:00 60 08/28/24 10:41 Room Air 08/28/24 09:00 Room Air 08/28/24 08:00 60 08/28/24 08:00 Room Air 08/28/24 08:00 98.1 F 62 16 142/71 H 96 Room Air 08/28/24 07:00 Room Air 08/28/24 05:00 Room Air 08/28/24 04:00 98.1 F 67 14 163/83 H 100 Room Air 08/28/24 04:00 60 08/28/24 03:00 Room Air 08/28/24 01:00 Room Air 08/28/24 00:00 70 08/27/24 23:00 Room Air 08/27/24 21:00 Room Air 08/27/24 20:00 Room Air 08/27/24 20:00 98.3 F 72 16 130/86 99 Room Air 08/27/24 20:00 60 08/27/24 19:00 Room Air Intake and Output 08/28/24 08/28/24 08/28/24 07:59 15:59 23:59 Intake Total 300 / 1050 750 / 1050 Balance 300 / 1050 750 / 1050 Intake: Intake, Oral Amount 750 / 750 Intake, Total IV Amount 300 / 300 D5W/0.9% NaCl w/20mEq KCL 1,000 300 / 300 ml @ 100 mls/hr IV .Q10H [facility] Rx#:[id number] Other: Weight 64.093 kg Patient Weight 08/28/24 23:59 Weight 64.093 kg Laboratory Results - last 24 hr 08/28/24 14:50: WBC 5.3, RBC 4.17 L, Hgb 13.2, Hct 39.2, MCV 94.1, MCH 31.7 H, MCHC 33.7, RDW 13.0, Plt Count 177, MPV 7.2 L, Neut % (Auto) 52.4, Lymph % (Auto) 32.1, [place] % (Auto) 10.4 H, Eos % (Auto) 4.6, Baso % (Auto) 0.5, Neut # (Auto) 2.8, Lymph # (Auto) 1.7, [place] # (Auto) 0.5, Eos # (Auto) 0.2, Baso # (Auto) 0.0, Sodium 139, Potassium 4.1, Chloride 109 H, Carbon Dioxide 25, Anion Gap 9.1, BUN 9 D, Creatinine 1.20 H, Estimated Creat Clear 42, Estimated GFR 44 L, Est GFR ( Amer) 53 L, Glucose 111 H, Calcium 9.0, Magnesium 1.7 D I & O for Labs for Last 24 Hours: Intake & Output 08/25/24 08/26/24 08/27/24 08/28/24 23:59 23:59 23:59 23:59 Intake Total 373 / 673 1050 / 1050 Output Total 0 / 0 Balance 373 / 673 1050 / 1050 Weight 62.868 kg 64.093 kg 64.093 kg Constitutional: Present no acute distress, average body habitus and cooperative Head: Present atraumatic and normocephalic ENT: Present normal exam Respiratory: Present normal respiratory effort; Absent rhonchi, wheezes or crackles Cardiac: Present Reg Rate and Rhythm GI: Present soft and normal bowel sounds; Absent distention or tenderness Extremities: Present normal inspection and full ROM Skin: Present intact; Absent erythema Neuro: Present Grossly Intact, alert, awake and moves all extremities Comment:: Oriented to self, knows she is in the hospital. Assessment and Plan *Assessment and plan (1) Acute confusion: Status: Acute Category: Medical Code(s): R41.0 - Disorientation, unspecified (2) Syncope: Status: Acute Category: Medical Code(s): R55 - Syncope and collapse (3) Nausea & vomiting: Status: Acute Category: Medical Code(s): R11.2 - Nausea with vomiting, unspecified (4) Mood disorder: Problem Comment: Differential diagnosis: Reactive depression, depression with psychotic features, bipolar disorder. Status: Chronic Category: Medical Code(s): F39 - Unspecified mood [affective] disorder (5) Hyperlipemia: Status: Chronic Category: Medical Code(s): E78.5 - Hyperlipidemia, unspecified (6) Hypertension: Status: Chronic Category: Medical Code(s): I10 - Essential (primary) hypertension (7) Dementia: Status: Suspected Qualifiers: Alzheimer's disease onset: late onset Dementia behavioral or psychological symptom: with other behavioral disturbance Dementia severity: moderate Dementia type: Alzheimer's Qualified Code(s): G30.1 - Alzheimer's disease with late onset; F02.B18 - Dementia in other diseases classified elsewhere, moderate, with other behavioral disturbance Category: Medical Code(s): F03.90 - Unspecified dementia, unspecified severity, without behavioral disturbance, psychotic disturbance, mood disturbance, and anxiety (8) Pancreatic abnormality: Status: Acute Category: Medical Code(s): 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 Status: Chronic Qualifiers: Depression Type: reactive depression Qualified Code(s): F32.9 - Major depressive disorder, single episode, unspecified Category: Medical Code(s): F32.A - Depression, unspecified (10) Suicidal ideation: Status: Resolved Category: Medical Code(s): R45.851 - Suicidal ideations Plan This is a 74-year-old with past medical history of debridement due to of 10 months ago, dementia, hyperlipidemia, hypertension, pancreatic insufficiency. Patient brought to hospital by son/daughter for suicidal ideation evaluation. Patient suffered from syncopal episode with EMS today. Patient also suffering from nausea/vomiting over past few days. Patient had syncopal episode with EMS. Hemodynamically stable overnight. Surgery and psychiatry consulted to assist. Patient tolerating advancement of diet. Cleared by psychiatry yesterday. Anticipate discharge tomorrow home with family. Problems addressed as follows: Suicidal ideation/comments of self-harm ? Patient denies any thoughts of self-harm. Behavioral health evaluated today, discussed case. Concern patient was seeking attention. No active thoughts at this time of self-harm. Patient safe to discharge home with family. Would benefit however from placement given patient's weaning cognitive state and significant needs with help for ADLs on a daily basis. Case management assisting with care. Will likely discharge home with family as patient has been turned down by all [facility] facilities consulted. Would benefit from facility with memory unit. Hypokalemia: Initially refusing labs. White count normal at 5.3 however once they were obtained. Electrolytes normal. Kidney function at baseline with creatinine 1.2. Potassium 4.1. Magnesium 1.7. Lab holiday in the morning Dehydration secondary to nausea/vomiting: ? CT of abdomen with contrast showed delayed emptying of stomach. Concern for possible obstruction versus gastroparesis. Repeat KUB this morning showed contrast in the colon. Surgery evaluated, no plan for urgent EGD. Recommend advancing diet to full liquids during our discussion and evaluate for tolerance of p.o. intake. If tolerates nutrition, plan for outpatient EGD. -Advance diet today. Tolerating so far. -Continue Protonix 40 mg IV twice daily Syncope secondary to dehydration: ? CT brain done emergency room without acute changes. Likely secondary to dehydration secondary to recent nausea/vomiting. As above in dehydration/hypoglycemia sections. Bereavement versus depression after of 10 months ago: ? Patient's 10 months ago. Son states that patient's hallucinations have gotten worse since of . Patient currently seeing outpatient mental health/neurology. - Continue lorazepam and 1 mg p.o. as needed anxiety -Behavioral health evaluated, recommend per our discussion to increase Seroquel to 100 mg nightly to aid in sleep. Continue lamotrigine 25 mg p.o. daily Dementia: Continue home donepezil 10 mg nightly and memantine 14 mg p.o. daily Hypertension: Amlodipine/benazepril 1 p.o. daily. Hydralazine 10 mg IV every 6 as needed SBP over 160 PPx: Lovenox 40 mg subcu daily CODE STATUS: Full full liquid diet
[2024-08-28 20:00] VITALS: BP 142/80; PULSE 60; PULSE 63; RESP 16; TEMP 36.7; O2SAT 98
[2024-08-28] MEDS: DONEPEZIL 10MG TAB 10 MG PO (20:08)
[2024-08-28] MEDS: QUETIAPINE 100MG TABLET 100 MG PO (20:09)
[2024-08-28] MEDS: PRAVASTATIN 40MG TAB 40 MG PO (20:09)
[2024-08-28] MEDS: lamoTRIgine 100MG TABLET 50 MG PO (20:09)
[2024-08-28] MEDS: LORazepam 1MG TABLET 1 MG PO (21:20)
[2024-08-29] VITALS: PULSE 60
[2024-08-29 04:00] VITALS: BP 134/74; PULSE 50; PULSE 62; RESP 16; TEMP 36.7; O2SAT 99; BMI 26.5
[2024-08-29 08:00] VITALS: BP 131/64; PULSE 60; PULSE 64; RESP 16; TEMP 36.6; O2SAT 99
[2024-08-29 08:06] LABS: Chloride 108 mmol/L (98-107); Sodium 138 mmol/L (136-145)
[2024-08-29 08:07] LABS: Potassium 3.7 mmoL/L (3.5-5.1)
[2024-08-29 08:10] LABS: Anion Gap 8.7 mEq/L (5-15); Blood Urea Nitrogen 18 mg/dl (7-17); Calcium 9.1 mg/dl (8.4-10.2); Carbon Dioxide 25 mmol/L (22.0-30.0); Creatinine Clearance Estimated 42 mL/min (50-200); Estimated Glomerular Filt Rate 44 ml/min (>60); GFR (African American) 53 ML/MIN (>60); Glucose 94 mg/dl (74-100); Magnesium 1.7 mg/dl (1.6-2.3)
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
[2024-08-29 08:33] LABS: Hematocrit 37.6 % (37.0-47.0); Hemoglobin 12.9 g/dL (12.2-16.2); Mean Corpuscular HGB Conc 34.3 g/dL (31.8-35.4); Mean Corpuscular Volume 90.4 fl (81-99); Mean Platelet Volume 9.9 fl (7.4-10.4); Platelet Count 176 K/mm3 (142-424); Red Blood Count 4.16 M/mm3 (4.20-5.40); Red Cell Distribution Width 11.7 % (11.5-17.5); White Blood Count 5.2 K/mm3 (4.8-10.8)
[2024-08-29 08:34] LABS: Basophils % 0.4 % (0.1-2.0); Eosinophils # 0.2 K/mm3 (0.0-0.4); Eosinophils % 3.9 % (0.1-12.0); Lymphocytes # 1.5 K/mm3 (0.7-4.5); Lymphocytes % 28.3 % (10-50); Monocytes # 0.8 K/mm3 (0.1-1.0); Neutrophils # 2.7 K/mm3 (1.8-7.8); Neutrophils % 52.2 % (37.0-80.0)
[2024-08-29] MEDS: MEMANTINE 10MG TABLET 10 MG PO (10:29)
[2024-08-29] MEDS: LISINOPRIL 20MG TABLET 20 MG PO (10:30)
[2024-08-29] MEDS: CITALOPRAM 20MG TABLET 20 MG PO (10:30)
[2024-08-29] MEDS: buPROPion HCL 100 MG TABLET PO (10:30)
[2024-08-29] MEDS: AMLODIPINE 5MG TABLET 5 MG PO (10:32)
--- NOTE | 2024-08-29 11:14 | PC.NURSE ---
home meds returned to pt's son
--- NOTE | 2024-08-30 10:55 | SW/DCPLANNER ---
Addendum entered by Supriya Johnson 08/30/24 13:41: Faxed over paperwork to [facility] and they are able to accpet patient per [employer] text message. Jatin Kwan Original Note: Spoke with patients lawn care technician. Caregiver stated that they were able to get her medicines filled and that waiting on the primary care provider to call for a follow up appointment. Caregiver stated that things arent going well and they predicited that patient would be sent home instead of going to a snf. I told caregiver that i would have the social services director give a call back to see if she is able to help with placement. Caregiver stated that she has no questions or concerns at this time. Jatin Kwan
--- NOTE | 2024-08-30 12:01 | SW/DCPLANNER ---
I received a consult on this patient for home health services and providing patient's family with information regarding LTC placement. I called and spoke w/ patient' son (Blair Carbajal [phone]). Patient's son is interested in home health services w/ no preference. CM will fax information/order today for home health services. Blair also had several questions regarding Geriatric Psych vs LTC. I explained both options to patient's son. I also provided Blair w/ resources and information to achieve LTC placement for patient. Blair stated that patient has shown improvement since returning back home after hospital discharge. CM will continue to follow up w/ patient's son and home health agencies.
== END 2024-08-29 11:12 | disposition home health service (06) ==
LOC: ER 21:22 → 2ND 21:44
PROVIDERS: Physician Assistant; Admitting Provider Internal Medicine; Emergency Provider Student in an Organized Health Care Education/Training Program; PCP Nurse Practitioner; Visit Provider Internal Medicine
DX: R45.851 Suicidal ideations (principal); G30.1 Alzheimer's disease with late onset; F02.B18 Dementia in other diseases classified elsewhere, moderate, with other behavioral disturbance; R41.0 Disorientation, unspecified; R55 Syncope and collapse; R11.2 Nausea with vomiting, unspecified; F39 Unspecified mood [affective] disorder; E78.5 Hyperlipidemia, unspecified; I10 Essential (primary) hypertension; Q45.3 Other congenital malformations of pancreas and pancreatic duct; F32.9 Major depressive disorder, single episode, unspecified; R45.86 Emotional lability; Z79.899 Other long term (current) drug therapy; E86.0 Dehydration; E87.6 Hypokalemia; F43.81 Prolonged grief disorder; Z73.89 Other problems related to life management difficulty
CPT/HCPCS: 36415; 70450; 74021; 74177; 80048; 80053; 80307; 80329; 81001; 83735; 85025; 99285; G0378; G0480; Q9963; Q9967

== ENCOUNTER 2024-09-23 14:07 | Outpatient (CLI) | payer MEDICARE, SELFPAY ==
[2024-09-23 14:13] LABS: Adenovirus F 40/41, stool Not Detected (NotDetected); Astrovirus Not Detected (NotDetected); Campylobacter Not Detected (NotDetected); Clostridium Difficile A/B, PCR Not Detected (NotDetected); Cryptosporidium Not Detected (NotDetected); Cyclospora Cayetanesis Not Detected (NotDetected); Entamoeba histolytica Not Detected (NotDetected); Enteroaggregative E coli Not Detected (NotDetected); Enteropathogenic E coli Not Detected (NotDetected); Enterotoxigenic E coli Not Detected (NotDetected); Giardia lamblia Not Detected (NotDetected); Norovirus Not Detected (NotDetected); Plesimonas Shigalloides, PCR Not Detected (NotDetected); Rotavirus A Not Detected (NotDetected); Salmonella, PCR Not Detected (NotDetected); Sapovirus Not Detected (NotDetected); Shiga-like toxin E coli Not Detected (NotDetected); Shigella Enterovasive E coli Not Detected (NotDetected); Vibrio Cholerae Not Detected (NotDetected); Vibrio, PCR Not Detected (NotDetected); Yersinia Entercolitica, PCR Not Detected (NotDetected)
[2024-09-27 07:07] LABS: Pancreatic Elastase, Fecal >800 (>200)
== END 2024-09-23 23:59 | disposition home or self-care (01) ==
LOC: LAB 14:10
PROVIDERS: PCP Nurse Practitioner; Visit Provider Nurse Practitioner Family
DX: R19.7 Diarrhea, unspecified (principal); K86.1 Other chronic pancreatitis
CPT/HCPCS: 82656; 87506